=== PATIENT | female | born 1985 | race Caucasian/White ===

== ENCOUNTER 2017-09-28 12:14 | Emergency (ER) | payer SELFPAY ==
[2017-09-28 12:15] VITALS: BP 107/44; PULSE 110; RESP 16; TEMP 36.5; O2SAT 94; BMI 21.6
[2017-09-28] MEDS: Ondansetron 4 MG/2 ML Vial IV (12:55)
[2017-09-28 13:03] LABS: Absolute Lymphocyte Count 3.08 X10^3/ul (0.83-4.51); Absolute Neutrophil Count 8.6 X10^3/uL (2.0-7.7); Basophil# 0.02 X10^3/uL; Basophil% 0.2 % (0-1); Eosinophil# 0.02 X10^3/uL; Eosinophils% 0.2 % (0-5); Hematocrit 47.6 % (37-47); Lymphocyte # 3.08 X10^3/ul (4.0); Lymphocyte % 23.4 % (19-41); Mean Corp Hgb Conc 35.7 g/gl (32-36); Mean Corpuscular Hgb 33.5 pg (27.0-32.0); Mean Corpuscular Volume 93.7 fL (81-99); Mean Platelet Vol. 8.7 fl (6.2-12.0); Monocyte# 1.48 X10^3/uL; Monocyte% 11.2 % (0-10); Neutrophil # 8.56 X10^3/uL (2.7-7.7); Neutrophil % 64.8 % (47-70); POSITIVE COUNT NO; POSITIVE DIFFERENTIAL NO; POSITIVE MORPHOLOGY NO; Platelet Count 355 K/mm3 (150-450); RBC Distribution Width SD 43.9 fl (35.1-43.9); Red Blood Count 5.08 M/mm3 (4.2-5.4); White Blood Count 13.2 K/mm3 (4.4-11.0)
[2017-09-28 13:05] LABS: Red Blood Cells-Urine 0 SEEN /hpf (0-5)
[2017-09-28 13:10] LABS: Color, Urine Amber (Yellow); Glucose, Dipstick Normal (Normal); Ketone-Dipstick 15 mg/dl (Negative); Leukocyte Esterase-Dipstick 25 /ul (Negative); Nitrite-Dipstick Negative (Negative); Occult Blood-Urine 50 /ul (Negative); Protein-Dipstick 100 mg/dl (Negative); Urine Clarity Sl. Cloudy (Clear); Urine Urobilinogen 1 mg/dl (Normal)
[2017-09-28 13:13] LABS: BUN 15 mg/dL (7-18); Creatinine, Serum 0.91 mg/dL (0.55-1.02); EST Glomerular Filtration Rate 75 mL/min (>60); Estimated Creatinine Clearance 87.87 ml/min; Glucose 122 mg/dL (74-106)
[2017-09-28 13:13] LABS: Urine Bilirubin Dipstick 1 mg/dL (Negative)
[2017-09-28 13:14] LABS: Anion Gap 11 (5-15); BUN/Creat Ratio 16.5 RATIO (10-20); Calcium,Total 9.4 mg/dL (8.5-10.1); Chloride 100 mmol/L (98-107); Est Glom Filt Rate - Afr Amer 91 mL/min (>60); Potassium 3.8 mmol/L (3.5-5.1); Sodium Level 137 mmol/L (136-145)
[2017-09-28 13:15] LABS: Bacteria 1+ /hpf (None Seen); Mucous, Urine 2+ /hpf (<or=2+); Squamous Epithelial Cells - UA 5-10 SEEN /hpf (5-10)
[2017-09-28 13:16] LABS: White Blood Cells 0-5 SEEN /hpf (0-5)
[2017-09-28 13:20] LABS: Pregnancy, Serum, hCG Quali. NEGATIVE Negative (0-9 Nonpreg)
--- NOTE | 2017-09-28 13:46 | ED.DCSUM_ITS ---
- ER Visit Summary Date of Service: 09/28/17 Chief Complaint: Vomiting and diarrhea History of Present Illness: The patient is a 32 F presenting with vomiting and diarrhea. This has been ongoing for the past 2 days. She states she is taking Zofran at home with some improvement. She initially had vomiting and diarrhea. She states the diarrhea has slowed down but she continues to have vomiting. She states her fianc? was ill with similar complaints. Denies fever or other complaints. Physical Examination: Vitals are stable. Patient is afebrile. Alert no acute distress. HEENT exam is unremarkable. Neck is supple. Lungs are clear and equal bilaterally. Heart is regular rate and rhythm. Abdomen is soft epigastric tenderness, no rebound or guarding. Extremities are unremarkable. Skin is warm and dry. No focal neurologic deficit. Remainder of exam is unremarkable. Emergency Department Course and Treatment: Patient was given IV fluids, Zofran. CBC shows a white count of 13.2. Chemistries unremarkable. Liver lipase are normal. Urinalysis unremarkable. HCG negative. She continues to have nausea and was given Phenergan. She continues to have epigastric pain was given a GI cocktail. She states she feels much improved on reevaluation. She will follow- up with her primary care physician. She is advised to return to ED for worsening complaints. Disposition: Discharge home Impression: Vomiting and diarrhea This note was generated with [employer] dictation software. It may contain incorrect words, spelling, and punctuation that were not noted in review of the chart prior to signing ED Disposition - Plan for ED Patient: Chief Complaint: Nausea/Vomiting Referrals: Bernard Balbuena MD [Primary Care Provider] -
[2017-09-28 14:19] LABS: AST(SGOT) 24 U/L (15-37); Alanine Aminotransfer ALT/SGPT 24 U/L (13-56); Albumin, Serum 4.2 g/dL (3.2-5.0); Alkaline Phosphatase 82 U/L (45-117); Bilirubin, Direct < 0.05 mg/dL (0.00-0.30); Protein, Total 8.2 g/dL (6.4-8.2)
[2017-09-28 14:26] LABS: Lipase 65 U/L (73-393)
[2017-09-28] MEDS: 0.9% Normal Saline 1,000 ML 999 ML IV (14:35)
[2017-09-28 15:16] VITALS: BP 138/83; PULSE 97; RESP 20; O2SAT 97
--- NOTE | 2017-09-28 16:56 | ED.DEP ---
ED Disposition - Plan for ED Patient: Chief Complaint: Nausea/Vomiting Instructions: ED Nausea Vomiting Prescriptions: ProMETHAzine [Phenergan] 25 mg PO Q6H PRN PRN #10 tablet PRN Reason: Nausea Referrals: Bernard Balbuena MD [Primary Care Provider] -
[2017-09-28 17:09] VITALS: BP 101/69; PULSE 64; RESP 15; O2SAT 97
--- NOTE | 2017-09-28 17:10 | ED.RN ---
THIS RN REVIEWED DISCHARGE INSTRUCTIONS AND HOME GOING PRESCRIPTIONS WITH THE PT. PT VERBALIZES UNDERSTANDING. IV D/C AND COVERED WITH 2X2 GAUZE DRESSING. PT APPLIED PRESSURE. MINIMAL BLEEDING NOTED. PT DRESSES SELF AND IS AMBULATORY HOME.
== END 2017-09-28 17:12 | disposition home or self-care (01) ==
PROVIDERS: Emergency Provider Emergency Medicine; Family Provider Family Medicine; PCP Family Medicine
DX: R19.7 Diarrhea, unspecified (principal); R11.2 Nausea with vomiting, unspecified; R10.13 Epigastric pain; J44.9 Chronic obstructive pulmonary disease, unspecified; Z72.0 Tobacco use; Z79.51 Long term (current) use of inhaled steroids; Z79.899 Other long term (current) drug therapy
CPT/HCPCS: 80048; 80076; 81001; 83690; 84703; 85025; 99283; J7030; A4216; J2405

== ENCOUNTER 2017-12-25 16:58 | Emergency (ER) | payer SELFPAY ==
[2017-12-25 16:59] VITALS: BP 125/81; PULSE 68; RESP 17; TEMP 36.7; O2SAT 96; BMI 24.0
[2017-12-25] MEDS: Ketorolac 30 MG/ML Syringe IV (18:04)
[2017-12-25] MEDS: Ondansetron 4 MG/2 ML Vial IV ×2 (18:04→21:32)
[2017-12-25] MEDS: 0.9% Normal Saline 1,000 ML 1000 ML IV ×2 (18:04→19:40)
[2017-12-25 18:09] LABS: Anion Gap 10 (5-15); BUN 6 mg/dL (7-18); BUN/Creat Ratio 6.9 RATIO (10-20); Calcium,Total 9.4 mg/dL (8.5-10.1); Chloride 106 mmol/L (98-107); Creatinine, Serum 0.87 mg/dL (0.55-1.02); EST Glomerular Filtration Rate 79 mL/min (>60); Est Glom Filt Rate - Afr Amer 95 mL/min (>60); Estimated Creatinine Clearance 91.91 ml/min; Glucose 133 mg/dL (74-106); Potassium 3.3 mmol/L (3.5-5.1); Sodium Level 140 mmol/L (136-145)
[2017-12-25 18:15] LABS: Pregnancy, Serum, hCG Quali. NEGATIVE Negative (0-9 Nonpreg)
--- NOTE | 2017-12-25 18:42 | ED.DCSUM_ITS ---
- ER Visit Summary Date of Service: 12/25/17 Chief Complaint: Vomiting and diarrhea History of Present Illness: The patient is a [address] Balbuena. She reports she has vomiting and diarrhea that began today. She is vomited multiple times. No blood or emesis. She has had 7 8 episodes of diarrhea. No blood in her stools. She reports that she has sharp diffuse abdominal pain is 710 severity. Is worsened by vomiting and relieved by a hot bath. She denies any dysuria frequency. She is on her menstrual period now. Patient denies sick contacts. Has not been camping out of the country. No possible bad food exposure. Does not drink well water. No recent antibiotic use. Physical Examination: Vitals: Stable. Afebrile. General: Well-nourished and well-developed. Head: Normocephalic atraumatic. Neck: Supple, no lymphadenopathy. No JVD. Nontender. Cardiovascular: Regular rate and rhythm. No murmurs. Respiratory: No respiratory distress. Clear to auscultation bilaterally. Abdominal: Soft, mild diffuse tenderness to palpation, nondistended, normal bowel sounds. No guarding, rebound, or peritoneal signs. Back: Nontender. Extremities: Nontender, no edema. Skin: Normal color, no rash. Neurologic: Alert and oriented ?3. Cranial nerves II through XII are intact. Normal strength and sensation. Psych: Normal affect. Test Results: Chem-7 is remarkable for potassium of 3.3, glucose 133, BUN of 6. test is negative. Emergency Department Course and Treatment: Patient was given 2 L normal saline. She is given Toradol, Zofran, and Phenergan IV. At her request she was given a GI cocktail p.o. She is resting comfortably. Treatment Plan: Patient be discharged instructions to use her Zofran and Phenergan that she already has at home. Follow-up Dr. Balbuena in 1-2 days not improving. Disposition: To home in improved and stable condition. Impression: 1. Vomiting/diarrhea. This note was generated with [employer] software. It may contain incorrect words, spelling, and punctuation that were not noted in review of the chart prior to signing ED Disposition - Plan for ED Patient: Chief Complaint: Nausea/Vomiting/Diarrhea Instructions: ED Food Poison Or Gastroenteritis Referrals: Bernard Balbuena MD [Primary Care Provider] - 1-2 Days if not improving
[2017-12-25 19:37] VITALS: PULSE 72; RESP 16; O2SAT 98
[2017-12-25] MEDS: proMETHazine 25 MG/ML Syringe 6.25 MG IV (19:40)
[2017-12-25 21:05] VITALS: BP 118/78; PULSE 74; RESP 18; O2SAT 97
[2017-12-25 21:34] VITALS: BP 122/78; PULSE 82; RESP 18; O2SAT 98
== END 2017-12-25 21:36 | disposition home or self-care (01) ==
PROVIDERS: Emergency Provider Emergency Medicine; Family Provider Family Medicine; PCP Family Medicine
DX: R19.7 Diarrhea, unspecified (principal); R11.10 Vomiting, unspecified; F17.200 Nicotine dependence, unspecified, uncomplicated; Z90.710 Acquired absence of both cervix and uterus
CPT/HCPCS: 80048; 84703; 96361; 96374; 96375; 96376; 99283; J7030; A4216; J2405

== ENCOUNTER 2018-03-24 15:36 | Emergency (ER) | payer SELFPAY ==
[2018-03-24 15:37] VITALS: BP 127/79; PULSE 95; RESP 14; TEMP 36.8; O2SAT 98; BMI 23.1
--- NOTE | 2018-03-24 16:01 | ED.VISSUMM ---
- ER Visit Summary Date of Service: 03/24/18 Chief Complaint: Nausea and vomiting History of Present Illness: The patient is a 32 F with nausea and vomiting since yesterday morning. Patient states she did have diarrhea briefly yesterday morning but none since. She has had subjective fever and chills. She only urinated one time hours. Patient does have a history of cyclic vomiting with similar. She has had prior cholecystectomy and left fallopian tube removed. Physical Examination: Vital signs unremarkable. Patient sitting upright in bed. Head and neck examination is significant for dry mucous membranes. Heart is regular rate and rhythm. Lung sounds are clear. Abdomen is soft with focal tenderness in epigastric area. No guarding or rebound. Hypoactive bowel sounds are noted throughout. Test Results: CBC was a white count 20.8 with 77% neutrophils. Hemoglobin is concentrated at 16.9. In review of prior records patient has had elevated white counts when she presents with similar symptoms. Chemistry studies are significant for sodium 128, potassium 3.0, chloride 85. LFTs lipase normal. test negative. Emergency Department Course and Treatment: Patient was initially given Zofran, IV fluids, and a GI cocktail. After 2 L of IV fluids and 40 mg of potassium orally repeat chemistry studies were obtained. Repeat sodium is 134, potassium 3.3, chloride 97. At this time patient is tolerating p.o. Should be given Zofran, Pepcid, and potassium replacement for home. If she worsens she is to return. Treatment Plan: [] Disposition: Discharge Impression: Vomiting, improved This note was generated with [employer] dictation software. It may contain incorrect words, spelling, and punctuation that were not noted in review of the chart prior to signing ED Disposition - Plan for ED Patient: Chief Complaint: Nausea/Vomiting Referrals: Bernard Balbuena MD [Primary Care Provider] -
[2018-03-24] MEDS: Mag Hydrox/Al Hydrox/Simeth 30 ML UDC PO (16:18)
[2018-03-24] MEDS: 0.9% Normal Saline 1,000 ML 150 ML IV (16:18)
[2018-03-24] MEDS: 0.9% Normal Saline 1,000 ML 1000 ML IV (16:18)
[2018-03-24] MEDS: Ondansetron 4 MG/2 ML Vial IV ×2 (16:18→20:03)
[2018-03-24 16:30] LABS: Absolute Lymphocyte Count 2.86 X10^3/ul (0.83-4.51); Absolute Neutrophil Count 16.1 X10^3/uL (2.0-7.7); Basophil# 0.01 X10^3/uL; Hematocrit 47.5 % (37-47); Hemoglobin 16.9 g/dl (12.0-15.0); Lymphocyte # 2.86 X10^3/ul (4.0); Lymphocyte % 13.7 % (19-41); Mean Corp Hgb Conc 35.6 g/gl (32-36); Mean Corpuscular Hgb 33.3 pg (27.0-32.0); Mean Corpuscular Volume 93.7 fL (81-99); Mean Platelet Vol. 9.1 fl (6.2-12.0); Monocyte# 1.77 X10^3/uL; Monocyte% 8.5 % (0-10); Neutrophil # 16.13 X10^3/uL (2.7-7.7); Neutrophil % 77.6 % (47-70); Platelet Count 308 K/mm3 (150-450); RBC Distribution Width CV 13.3 % (11.6-14.6); RBC Distribution Width SD 45.1 fl (35.1-43.9); Red Blood Count 5.07 M/mm3 (4.2-5.4); White Blood Count 20.8 K/mm3 (4.4-11.0)
[2018-03-24 16:50] LABS: AST(SGOT) 26 U/L (15-37); Alanine Aminotransfer ALT/SGPT 23 U/L (13-56); Albumin, Serum 4.1 g/dL (3.2-5.0); Alkaline Phosphatase 83 U/L (45-117); Anion Gap 11 (5-15); BUN 11 mg/dL (7-18); BUN/Creat Ratio 12.2 RATIO (10-20); Bilirubin, Direct 0.14 mg/dL (0.00-0.30); Calcium,Total 9.3 mg/dL (8.5-10.1); Chloride 85 mmol/L (98-107); EST Glomerular Filtration Rate 76 mL/min (>60); Est Glom Filt Rate - Afr Amer 91 mL/min (>60); Estimated Creatinine Clearance 88.85 ml/min; Globulin 4.1 g/dL (2.2-4.2); Glucose 115 mg/dL (74-106); Lipase 44 U/L (73-393); Protein, Total 8.2 g/dL (6.4-8.2); Sodium Level 128 mmol/L (136-145)
[2018-03-24 16:57] LABS: Differential Indicated SCAN CRITERIA MET; POSITIVE COUNT NO; POSITIVE DIFFERENTIAL YES; POSITIVE MORPHOLOGY NO
[2018-03-24 16:59] LABS: Anisocytosis RARE; Macrocytosis RARE; Platelet Estimate ADEQUATE (ADEQ)
[2018-03-24 17:06] LABS: Pregnancy, Serum, hCG Quali. NEGATIVE Negative (0-9 Nonpreg)
[2018-03-24] MEDS: 0.9% Normal Saline 1,000 ML 999 ML IV (17:21)
[2018-03-24 17:37] VITALS: BP 148/85; PULSE 80; RESP 16; O2SAT 95
[2018-03-24 19:45] VITALS: BP 124/78; PULSE 75; RESP 16; O2SAT 95
[2018-03-24 20:57] LABS: Anion Gap 7 (5-15); BUN 10 mg/dL (7-18); BUN/Creat Ratio 14.3 RATIO (10-20); Chloride 97 mmol/L (98-107); EST Glomerular Filtration Rate 101 mL/min (>60); Est Glom Filt Rate - Afr Amer 123 mL/min (>60); Estimated Creatinine Clearance 114.23 ml/min; Glucose 104 mg/dL (74-106); Potassium 3.3 mmol/L (3.5-5.1); Sodium Level 134 mmol/L (136-145)
--- NOTE | 2018-03-24 21:17 | ED.DEP ---
ED Disposition - Plan for ED Patient: Disposition: Home or Assisted Living Chief Complaint: Nausea/Vomiting Instructions: ED Nausea Vomiting Prescriptions: Ondansetron [Zofran Odt] 4 mg PO Q8H PRN PRN #10 tablet PRN Reason: Nausea Famotidine [Pepcid] 20 mg PO BID #28 tablet Potassium Chloride [K-Dur] 20 meq PO BID #6 tablet Referrals: Bernard Balbuena MD [Primary Care Provider] - 5-7 Days
[2018-03-24] MEDS: Ondansetron ODT 4 MG Tablet PO (21:30)
[2018-03-24 21:34] VITALS: BP 126/81; PULSE 62; RESP 16; O2SAT 94
[2018-03-25 15:06] LABS: Pathologist Review Reviewed
== END 2018-03-24 21:35 | disposition home or self-care (01) ==
PROVIDERS: Emergency Provider Emergency Medicine; Family Provider Family Medicine; PCP Family Medicine
DX: R11.2 Nausea with vomiting, unspecified (principal); Z90.49 Acquired absence of other specified parts of digestive tract; R19.7 Diarrhea, unspecified; R10.9 Unspecified abdominal pain; J45.909 Unspecified asthma, uncomplicated; Z72.0 Tobacco use
CPT/HCPCS: 36415; 80048; 80076; 83690; 84703; 85025; 99282; J7030; A4216; J2405

== ENCOUNTER 2018-04-29 16:40 | Emergency (ER) | payer SELFPAY ==
[2018-04-29 16:41] VITALS: BP 117/73; PULSE 106; RESP 18; TEMP 36.6; O2SAT 98; BMI 23.1
--- NOTE | 2018-04-29 17:00 | ED.VISSUMM ---
- ER Visit Summary Date of Service: 04/29/18 Chief Complaint: Vomiting ?100 History of Present Illness: The patient is a 33 F who has history of cyclic vomiting presents with vomiting 100 times since yesterday morning. 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 She does admit to occasional alcohol use, and cannabis. She admits to smoking daily. She states she took the Zofran ODT tablet she was prescribed with no effect. She denies fever, chills night sweats. She denies ocular, visual or auditory symptoms. She does complain of dry mouth and thirst. She denies trouble with speech or swallowing. She denies chest pain, palpitations or rapid heartbeat. She denies shortness of breath, dyspnea on exertion, orthopnea. She denies hematemesis, melena hematochezia. She reports decreased urine output otherwise negative. She denies skin lesions or rash. She denies paresthesia, anesthesia or motor weakness. She denies problems with walking or balance. She denies headache. Physical Examination: Vital signs noted and remarkable for heart rate of 106. HEENT exam is marked for dry mucosa and tongue. Heart is rapid and regular without murmur, gallop or rub. Lungs are clear to auscultation with good move air bilaterally. Abdomen is soft nontender. Bowel sounds are diminished. There is no evidence of trauma. There is no CVA tenderness. Lower extremity exam is unremarkable. Neuro exam is nonfocal. Test Results: None were obtained Emergency Department Course and Treatment: ED cyclic vomiting order set was initiated. Since there is no history of diabetes, hypertension or renal disease blood work was not obtained in this 33-year-old patient. Treatment Plan: Patient did not have any vomiting and was asleep after stage I. When the nurse asked how she felt she states she is no better. She received stage II which is 0.5 mg/kg of Thorazine and Benadryl. She has been hear greater than 6 hours without any vomiting. When asked how she feels she states no better. Since her initial complaint was vomiting 100 times and she has not vomited once in greater than 6 hours she will be discharged home Disposition: Discharged to home Impression: 1. Cyclic vomiting 2. Dehydration This note was generated with [employer] software. It may contain incorrect words, spelling, and punctuation that were not noted in review of the chart prior to signing ED Disposition - Plan for ED Patient: Disposition: Home or Assisted Living Chief Complaint: Nausea/Vomiting Instructions: When Your Child Has Cyclic Vomiting Syndrome ([facility]) Referrals: Benrard Balbuena MD [Primary Care Provider] - As Needed
--- NOTE | 2018-04-29 17:03 | ED.DCSUM_ITS ---
- ER Visit Summary Date of Service: 04/29/18 Chief Complaint: Vomiting ?100 History of Present Illness: The patient is a 33 F who has history of cyclic vomiting presents with vomiting 100 times since yesterday morning. 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 She does admit to occasi onal alcohol use, and cannabis. She admits to smoking daily. She states she took the Zofran ODT tablet she was prescribed with no effect. She denies fever, chills night sweats. She denies ocular, visual or auditory symptoms. She does complain of dry mouth and thirst. She denies trouble with speech or swallowing. She denies chest pain, palpitations or rapid heartbeat. She denies shortness o f breath, dyspnea on exertion, orthopnea. She denies hematemesis, melena hematochezia. She reports decreased urine output otherwise negative. She denies skin lesions or rash. She denies paresthesia, anesthesia or motor weakness. She denies problems with walking or balance. She denies headache. Physical Examination: Vital signs noted and remarkable for heart rate of 106. HEENT exam is marked for dry mucosa and tongue. Heart is rapid and regular without murmur, gallop or rub. Lungs are clear to auscultation with good move air bilaterally. Abdomen is soft nontender. Bowel sounds are diminished. There is no evidence of trauma. There is no CVA tenderness. Lower extremity exam is unremarkable. Neuro exam is nonfocal. Test Results: None were obtained Emergency Department Course and Treatment: ED cyclic vomiting order set was initiated. Since there is no history of diabetes, hypertension or renal disease blood work was not obtained in this 33-year-old patient. Treatment Plan: Patient did not have any vomiting and was asleep after stage I. When the nurse asked how she felt she states she is no better. She received stage II which is 0.5 mg/kg of Thorazine and Benadryl. She has been hear greater than 6 hours without any vomiting. When asked how she feels she states no better. Since her initial complaint was vomiting 100 times and she has not vomited once in greater than 6 hours she will be discharged home Disposition: Discharged to home Impression: 1. Cyclic vomiting 2. Dehydration This note was generated with [employer] dictation software. It may contain incorrect words, spelling, and punctuation that were not noted in review of the chart prior to signing ED Disposition - Plan for ED Patient: Disposition: Home or Assisted Living Chief Complaint: Nausea/Vomiting Instructions: When Your Child Has Cyclic Vomiting Syndrome (CVS) Referrals: Bernard Balbuena MD [Primary Care Provider] - As Needed
[2018-04-29] MEDS: Ondansetron 4 MG/2 ML Vial IV (17:26)
[2018-04-29] MEDS: LORazepam 2 MG/ML Syringe 0.5 MG IV (17:27)
[2018-04-29] MEDS: 0.9% Normal Saline 1,000 ML 1000 ML IV (17:27)
[2018-04-29 21:10] VITALS: BP 105/75; PULSE 77; RESP 16; O2SAT 94
[2018-04-29 23:15] VITALS: BP 109/68; PULSE 75; RESP 14; O2SAT 98
== END 2018-04-29 23:15 | disposition home or self-care (01) ==
PROVIDERS: Emergency Provider Emergency Medicine; Family Provider Family Medicine; PCP Family Medicine
DX: G43.A0 Cyclical vomiting, in migraine, not intractable (principal); E86.0 Dehydration; F17.200 Nicotine dependence, unspecified, uncomplicated
CPT/HCPCS: 96365; 96366; 96375; 99284; J7030; A4216; J2405; J3490

== ENCOUNTER 2018-07-02 15:50 | Emergency (ER) | payer SELFPAY ==
[2018-07-02 15:51] VITALS: BP 129/80; PULSE 74; RESP 16; TEMP 37.1; O2SAT 95; BMI 22.8
[2018-07-02] MEDS: LORazepam 2 MG/ML Syringe 0.5 MG IV (16:35)
[2018-07-02] MEDS: Mag Hydrox/Al Hydrox/Simeth 30 ML UDC PO (16:35)
[2018-07-02] MEDS: 0.9% Normal Saline 1,000 ML 1000 ML IV (16:35)
[2018-07-02] MEDS: Ketorolac 30 MG/ML Syringe IV (16:35)
[2018-07-02] MEDS: Ondansetron 4 MG/2 ML Vial IV (16:35)
--- NOTE | 2018-07-02 17:02 | ED.DCSUM_ITS ---
- ER Visit Summary Date of Service: 07/02/18 Chief Complaint: Vomiting History of Present Illness: The patient is a [address] Balbuena. She reports that she has a history of cyclic vomiting. States that she did not vomit again yesterday. She vomited multiple times. No blood or emesis. She reports she has sharp lower abdominal pain that began after the vomiting began. States pain is 10 at 10 at worst 7-10 currently. Is worsened by vomiting. Is relieved by remaining still. She reports that 2 episodes of diarrhea yesterday. She has not had any today. No blood in her stools or black tarry stools. No dysuria frequency. Last menstrual period was last week. No vaginal bleeding or discharge. Physical Examination: Vitals: Stable. Afebrile. General: Well-nourished and well-developed. Head: Normocephalic atraumatic. Neck: Supple, no lymphadenopathy. No JVD. Nontender. Cardiovascular: Regular rate and rhythm. No murmurs. Respiratory: No respiratory distress. Clear to auscultation bilaterally. Abdominal: Soft, mild suprapubic tenderness to palpation, nondistended, normal bowel sounds. No guarding, rebound, or peritoneal signs. Back: Nontender. Extremities: Nontender, no edema. Skin: Normal color, no rash. Neurologic: Alert and oriented ?3. Cranial nerves II through XII are intact. Normal strength and sensation. Psych: Normal affect. Test Results: test is negative Emergency Department Course and Treatment: Patient had an IV placed. She is given a liter normal saline. She was treated with Zofran, Ativan, Thorazine, and Toradol IV. She has not vomited while here. She is resting comfortably. Treatment Plan: Patient will be discharged instructions to follow-up her primary care physician 1-2 days not improving. She has Zofran ODT and Phenergan suppositories at home already. Return to the emergency department for any worsening symptoms. Disposition: To home in improved and stable condition. Impression: 1. Cyclic vomiting. This note was generated with [employer] software. It may contain incorrect words, spelling, and punctuation that were not noted in review of the chart prior to signing ED Disposition - Plan for ED Patient: Chief Complaint: Nausea/Vomiting Instructions: When Your Child Has Cyclic Vomiting Syndrome (CVS) Referrals: Bernard Balbuena MD [Primary Care Provider] - 1-2 Days if not improving
[2018-07-02 17:41] LABS: Pregnancy, Serum, hCG Quali. NEGATIVE Negative (0-9 Nonpreg)
[2018-07-02 18:20] VITALS: BP 94/41; PULSE 67; RESP 14; O2SAT 94
--- OUTSIDE RECORDS SUMMARY | 2018-08-28 02:40 | XMS RPT_ITS ---
:1985 Author Organization OH[facility] Care Team Providers Name Role Phone Bernard Balbuena Primary Care Unavailable Oapl Nelson Attending Unavailable Christy Jarrell Attending Unavailable Bernard Balbuena Referring Unavailable Bernard Balbuena Primary Care Unavailable Sandoval Gomez Attending Unavailable Bernard Balbuena Primary Care Unavailable Shima Matamoros Attending Unavailable Bernard Balbuena Primary Care Unavailable Silva, Franklin Attending Unavailable Bernard Balbuena Primary Care Unavailable Sandoval Gomez Attending Unavailable PROBLEMS PROBLEMS No Problem Records FoundPROCEDURES PROCEDURES No Procedure Records FoundRESULTS RESULTS EMERGENCY DEPARTMENT Observed: 07/02/2018 Status: F Source: [place] SUMMARY 11:12 PM [facility] Medical Records Department [address] [place] [address] Emergency Department Summary 07/02/18 1700 MR#: [id number] Acct: [id number] Name: NELIDA GLASS Rep #: [id number] : 1985 33 From: Sandoval Gomez MD PCP: Bernard Balbuena MD Status: DEP ER - ER Visit Summary Date of Service: 07/02/18 Chief Complaint: Vomiting History of Present Illness: The patient is a [address] Balbuena. She reports that she has a history of cyclic vomiting. States that she did not vomit again yesterday. She vomited multiple times. No blood or emesis. She reports she has sharp lower abdominal pain that began after the vomiting began. States pain is 10 at 10 at worst 7-10 currently. Is worsened by vomiting. Is relieved by remaining still. She reports that 2 episodes of diarrhea yesterday. She has not had any today. No blood in her stools or black tarry stools. No dysuria frequency. Last menstrual period was last week. No vaginal bleeding or discharge. Physical Examination: Vitals: Stable. Afebrile. General: Well-nourished and well-developed. Head: Normocephalic atraumatic. Neck: Supple, no lymphadenopathy. No JVD. Nontender. Cardiovascular: Regular rate and rhythm. No murmurs. Respiratory: No respiratory distress. Clear to auscultation bilaterally. Abdominal: Soft, mild suprapubic tenderness to palpation, nondistended, normal bowel sounds. No guarding, rebound, or peritoneal signs. Back: Nontender. Extremities: Nontender, no edema. Skin: Normal color, no rash. Neurologic: Alert and oriented 3. Cranial nerves II through XII are intact. Normal strength and sensation. Psych: Normal affect. Test Results: test is negative Emergency Department Course and Treatment: Patient had an IV placed. She is given a liter normal saline. She was treated with Zofran, Ativan, Thorazine, and Toradol IV. She has not vomited while here. She is resting comfortably. Treatment Plan: Patient will be discharged instructions to follow-up her primary care physician 1-2 days not improving. She has Zofran ODT and Phenergan suppositories at home already. Return to the emergency department for any worsening symptoms. Disposition: To home in improved and stable condition. Impression: 1. Cyclic vomiting. This note was generated with [employer] dictation software. It may contain incorrect words, spelling, and punctuation that were not noted in review of the chart prior to signing ED Disposition - Plan for ED Patient: Chief Complaint: Nausea/Vomiting Instructions: When Your Child Has Cyclic Vomiting Syndrome (CVS) Referrals: Bernard Balbuena MD [Primary Care Provider] - 1-2 Days if not improving What to do if you have Problems For any increased pain, shortness of breath, bleeding, nausea or vomiting, chest pain, or any unexpected problems, contact your Primary Care Provider. Call [facility] ([phone]) or report to the closest Emergency Room. Call 911 if necessary. 07/02/18 8562 <Electronically signed by Sandoval Gomez MD> Date Sandoval Gomez MD Cosigner Signature (If Indicated): Date CC: Bernard Balbuena MD ,SERUM,HCG QUALI. Collected: Status: F Source: [place] 07/02/2018 4:20 PM [facility] TYPE CODE TESTS RESULT OUT OF REFERENCE UNITS RANGE LAB L700.7000 0-9 Nonpreg Negative Normal HCGSQUAL NEGATIVE LAB L700.6700 =>Qualitative mIU/mL Normal HCG Qual < 1 triggr Performed By: #### L700.6800 #### [facility] [address] [place], [address] EMERGENCY DEPARTMENT Observed: 04/29/2018 Status: F Source: [place] SUMMARY 10:57 PM [facility] Medical Records Department [address] [place] [address] Emergency Department Summary 04/29/18 1700 MR#: [id number] Acct: [id number] Name: NELIDA GLASS Rep #: [id number] : 1985 33 From: Franklin Silva MD PCP: Bernard Balbuena MD Status: REG ER - ER Visit Summary Date of Service: 04/29/18 Chief Complaint: Vomiting 100 History of Present Illness: The patient is a 33 F who has history of cyclic vomiting presents with vomiting 100 times since yesterday morning. 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 She does admit to occasional alcohol use, and cannabis. She admits to smoking daily. She states she took the Zofran ODT tablet she was prescribed with no effect. She denies fever, chills night sweats. She denies ocular, visual or auditory symptoms. She does complain of dry mouth and thirst. She denies trouble with speech or swallowing. She denies chest pain, palpitations or rapid heartbeat. She denies shortness of breath, dyspnea on exertion, orthopnea. She denies hematemesis, melena hematochezia. She reports decreased urine output otherwise negative. She denies skin lesions or rash. She denies paresthesia, anesthesia or motor weakness. She denies problems with walking or balance. She denies headache. Physical Examination: Vital signs noted and remarkable for heart rate of 106. HEENT exam is marked for dry mucosa and tongue. Heart is rapid and regular without murmur, gallop or rub. Lungs are clear to auscultation with good move air bilaterally. Abdomen is soft nontender. Bowel sounds are diminished. There is no evidence of trauma. There is no CVA tenderness. Lower extremity exam is unremarkable. Neuro exam is nonfocal. Test Results: None were obtained Emergency Department Course and Treatment: ED cyclic vomiting order set was initiated. Since there is no history of diabetes, hypertension or renal disease blood work was not obtained in this 33-year-old patient. Treatment Plan: Patient did not have any vomiting and was asleep after stage I. When the nurse asked how she felt she states she is no better. She received stage II which is 0.5 mg/kg of Thorazine and Benadryl. She has been hear greater than 6 hours without any vomiting. When asked how she feels she states no better. Since her initial complaint was vomiting 100 times and she has not vomited once in greater than 6 hours she will be discharged home Disposition: Discharged to home Impression: 1. Cyclic vomiting 2. Dehydration This note was generated with [employer] software. It may contain incorrect words, spelling, and punctuation that were not noted in review of the chart prior to signing ED Disposition - Plan for ED Patient: Disposition: Home or Assisted Living Chief Complaint: Nausea/Vomiting Instructions: When Your Child Has Cyclic Vomiting Syndrome (CVS) Referrals: Bernard Balubena MD [Primary Care Provider] - As Needed What to do if you have Problems For any increased pain, shortness of breath, bleeding, nausea or vomiting, chest pain, or any unexpected problems, contact your Primary Care Provider. Call [facility] ([phone]) or report to the closest Emergency Room. Call 911 if necessary. 04/29/18 0809 <Electronically signed by Franklin Silva MD> Date Franklin Silva MD Cosigner Signature (If Indicated): Date CC: Bernard Balbuena MD EMERGENCY DEPARTMENT Observed: 03/25/2018 Status: F Source: [place] SUMMARY 12:27 AM [facility] Medical Records Department [address] [place] [address] Emergency Department Summary 03/24/18 1601 MR#: [id number] Acct: [id number] Name: PARRISHNELIDA A Rep #: [id number] : 1985 32 From: Shima Matamoros MD PCP: Bernard Balbuena MD Status: DEP ER - ER Visit Summary Date of Service: 03/24/18 Chief Complaint: Nausea and vomiting History of Present Illness: The patient is a 32 F with nausea and vomiting since yesterday morning. Patient states she did have diarrhea briefly yesterday morning but none since. She has had subjective fever and chills. She only urinated one time hours. Patient does have a history of cyclic vomiting with similar. She has had prior cholecystectomy and left fallopian tube removed. Physical Examination: Vital signs unremarkable. Patient sitting upright in bed. Head and neck examination is significant for dry mucous membranes. Heart is regular rate and rhythm. Lung sounds are clear. Abdomen is soft with focal tenderness in epigastric area. No guarding or rebound. Hypoactive bowel sounds are noted throughout. Test Results: CBC was a white count 20.8 with 77% neutrophils. Hemoglobin is concentrated at 16.9. In review of prior records patient has had elevated white counts when she presents with similar symptoms. Chemistry studies are significant for sodium 128, potassium 3.0, chloride 85. LFTs lipase normal. test negative. Emergency Department Course and Treatment: Patient was initially given Zofran, IV fluids, and a GI cocktail. After 2 L of IV fluids and 40 mg of potassium orally repeat chemistry studies were obtained. Repeat sodium is 134, potassium 3.3, chloride 97. At this time patient is tolerating p.o. Should be given Zofran, Pepcid, and potassium replacement for home. If she worsens she is to return. Treatment Plan: [] Disposition: Discharge Impression: Vomiting, improved This note was generated with [employer] dictation software. It may contain incorrect words, spelling, and punctuation that were not noted in review of the chart prior to signing ED Disposition - Plan for ED Patient: Chief Complaint: Nausea/Vomiting Referrals: Bernard Balbuena MD [Primary Care Provider] - What to do if you have Problems For any increased pain, shortness of breath, bleeding, nausea or vomiting, chest pain, or any unexpected problems, contact your Primary Care Provider. Call [facility] ([phone]) or report to the closest Emergency Room. Call 911 if necessary. 03/25/18 0027 <Electronically signed by Shima Matamoros MD> Date Shima Matamoros MD Cosigner Signature (If Indicated): Date __ CC: Bernard Balbuena MD DISCHARGE INSTRUCTION Observed: 03/24/2018 Status: F Source: [place] 9:18 PM [facility] Medical Records Department [address] [place] [address] Discharge Instruction 03/24/182116 MR#: [id number] Acct: [id number] Name: NELIDA GLASS Rep #: [id number] : 1985 32 From: Shima Matamoros MD PCP: Bernard Balbuena MD Status: REG ER ED Disposition - Plan for ED Patient: Disposition: Home or Assisted Living Chief Complaint: Nausea/Vomiting Instructions: ED Nausea Vomiting Prescriptions: Ondansetron [Zofran Odt] 4 mg PO Q8H PRN PRN #10 tablet PRN Reason: Nausea Famotidine [Pepcid] 20 mg PO BID #28 tablet Potassium Chloride [K-Dur] 20 meq PO BID #6 tablet Referrals: Bernard Balbuena MD [Primary Care Provider] - 5-7 Days What to do if you have Problems For any increased pain, shortness of breath, bleeding, nausea or vomiting, chest pain, or any unexpected problems, contact your Primary Care Provider. Call [facility] ([phone]) or report to the closest Emergency Room. Call 911 if necessary. 03/24/182117 <Electronically signed by Shima Matamoros MD> Date Shima Matamoros MD Cosigner Signature (If Indicated): Date CC: Bernard Balbuena MD BASIC METABOLIC Collected: 03/24/2018 Status: F Source: [place] PROFILE ([facility]) 8:23 PM [facility] TYPE CODE TESTS RESULT OUT OF RANGE REFERENCE UNITS LAB L501.0100 74-106 mg/dL Normal GLU 104 Result Comment: Fasting Glucose result from 100 to 125 mg/dL suggests IMPAIRED HOMEOSTASIS per A.D.A. criteria. Please note revised GLUCOSE reference range effective 2017. LAB L501.1000 7-18 mg/dL Normal BUN 10 LAB L501.1100 0.55-1.02 mg/dL Normal CREAT,SERUM 0.70 Result Comment: The validity of the calculated GFR AND GFRAA in patients over 70 years has not been determined. Clinical correlation is essential. LAB L501.1110 >60 mL/min Normal EST GFR 101 Result Comment: Non- GFR Calc LAB L501.1115 >60 mL/min Normal EST GFR - AA 123 Result Comment: GFR Calc LAB L501.1255 ml/min Normal Estimated CRCL 114.23 LAB L501.1300 10-20 RATIO BUN/CRE Normal 14.3 LAB L501.2200 8.5-10 mg/dL Low .1 CA 8.0 LAB L501.5300 136-14 mmol/L Low 5 NA 134 LAB L501.5600 3.5-5. mmol/L Low 1 K 3.3 Result Comment: Slight Hemolysis, Result may be falsely increased. LAB L501.5900 98-107 mmol/L Low CL 97 LAB L501.6100 21.0-32.0 mmol/L Normal CO2 30.0 LAB L501.6200 5-15 Normal GAP 7 Performed By: #### L500.2500 #### [facility] [address] [place], [address] BASIC METABOLIC Collected: 03/24/2018 Status: F Source: [place] PROFILE ([facility]) 4:00 PM [facility] TYPE CODE TESTS RESULT OUT OF RANGE REFERENCE UNITS LAB L501.0100 74-106 mg/dL High GLU 115 Result Comment: Fasting Glucose result from 100 to 125 mg/dL suggests IMPAIRED HOMEOSTASIS per A.D.A. criteria. Please note revised GLUCOSE reference range effective 2017. LAB L501.1000 7-18 mg/dL Normal BUN 11 LAB L501.1100 0.55-1.02 mg/dL Normal CREAT,SERUM 0.90 Result Comment: The validity of the calculated GFR AND GFRAA in patients over 70 years has not been determined. Clinical correlation is essential. LAB L501.1110 >60 mL/min Normal EST GFR 76 Result Comment: Non- GFR Calc LAB L501.1115 >60 mL/min Normal EST GFR - AA 91 Result Comment: GFR Calc LAB L501.1255 ml/min Normal Estimated CRCL 88.85 LAB L501.1300 10-20 RATIO Normal BUN/CRE 12.2 LAB L501.2200 8.5-10 mg/dL Normal .1 CA 9.3 LAB L501.5300 136-14 mmol/L Low 5 NA 128 LAB L501.5600 3.5-5. mmol/L Low 1 K 3.0 Result Comment: Moderate Hemolysis, Result may be falsely increased. LAB L501.5900 98-107 mmol/L Low CL 85 LAB L501.6100 21.0-32.0 mmol/L Normal CO2 32.0 LAB L501.6200 5-15 Normal GAP 11 Performed By: #### L500.2500, L500.3400, L501.2450 #### [facility] [address] [place], [place], [address] LIVER PROFILE Collected: 03/24/2018 Status: F Source: [place] 4:00 PM [facility] TYPE CODE TESTS RESULT OUT OF RANGE REFERENCE UNITS LAB L501.1500 6.4-8.2 g/dL Normal T PROT 8.2 LAB L501.1800 3.2-5.0 g/dL Normal ALB 4.1 LAB L501.1950 2.2-4.2 g/dL Normal GLOB 4.1 LAB L501.4100 15-37 U/L Normal AST 26 Result Comment: Moderate Hemolysis, Result may be falsely increased. LAB L501.4305 45-117 U/L Normal ALK P 83 LAB L501.4405 13-56 U/L Normal ALT 23 LAB L501.4600 0.20-1.00 mg/dL High T BILI 1.40 LAB L501.4700 0.00-0.30 mg/dL Normal D BILI 0.14 Performed By: #### L500.2500, L500.3400, L501.2450 #### [facility] [address] [place], [place], [address] LIPASE Collected: 03/24/2018 Status: F Source: [place] 4:00 PM [facility] TYPE CODE TESTS RESULT OUT OF REFERENCE UNITS RANGE LAB L501.2450 73-393 U/L Low LIPASE 44 Performed By: #### L500.2500, L500.3400, L501.2450 #### [facility] [address] [place], [address] CBC W/DIFF, AUTOMATED Collected: 03/24/2018 Status: C Source: [place] 4:00 PM [facility] TYPE CODE TESTS RESULT OUT OF RANGE REFERENCE UNITS LAB L100.1000 4.4-11.0 K/mm3 High WBC 20.8 LAB L100.1200 4.2-5.4 M/mm3 Normal RBC 5.07 LAB L100.1300 12.0-15.0 g/dl High HGB 16.9 LAB L100.1400 37-47 % High HCT 47.5 LAB L100.1500 81-99 fL Normal MCV 93.7 LAB L100.1600 27.0-32.0 pg High MCH 33.3 LAB L100.1700 32-36 g/gl Normal MCHC 35.6 LAB L100.1810 11.6-14.6 % Normal RDW CV 13.3 LAB L100.1820 35.1-43.9 fl High RDW SD 45.1 LAB L100.1900 150-450 K/mm3 Normal PLT 308 LAB L100.2000 6.2-12.0 fl Normal MPV 9.1 LAB L100.2100 47-70 % High NEUT% 77.6 LAB L100.2200 19-41 % Low LY% 13.7 LAB L100.2300 0-10 % Normal MONO% 8.5 LAB L100.2400 0-5 % Normal EO% 0.0 LAB L100.2500 0-1 % Normal BASO% 0.0 LAB L100.2550 0.0-0.9 % Normal IM GRAN % 0.200 Result Comment: IG% - Immature Granulocytes (promyelocytes, myelocytes and metamyelocytes) > 1% indicates that a LEFT SHIFT is Present. LAB L100.2620 2.0-7.7 X10 3/uL High Absolute Neut 16.1 LAB L100.2720 0.83-4.51 X10 3/ul Normal Absolute Lymph 2.86 LAB L100.4500 Normal SMEAR COMMENT SEE COMMENT Result Comment: MONOCYTOSIS NOTED LAB L100.5500 ADEQ PLT EST Normal ADEQUATE LAB L100.7300 ANISO RARE Normal LAB L100.7800 RARE Normal MACROCYTE LAB L100.9900 PATH REV Normal Reviewed Result Comment: Neutrophilic leukocytosis. Polycythemia. Clinical correlation necessary. Herve Hernandez M.D. 03/25/18 AMENDED REPORT 03/25/18 1505 PATH REV previously reported as: December Performed By: #### L100.0100 #### [facility] [address] [place], [address] ,SERUM,HCG QUALI. Collected: Status: F Source: [place] 03/24/2018 4:00 PM [facility] TYPE CODE TESTS RESULT OUT OF REFERENCE UNITS RANGE LAB L700.6700 =>Qualitative mIU/mL Normal HCG Qual < 1 triggr LAB L700.7000 0-9 Nonpreg Negative Normal HCGSQUAL NEGATIVE Performed By: #### L700.6800 #### [facility] [address] [place], [address] EMERGENCY DEPARTMENT Observed: 12/26/2017 Status: F Source: [place] SUMMARY 1:24 AM [facility] Medical Records Department [address] [place] [address] Emergency Department Summary 12/25/17 1827 MR#: [id number] Acct: [id number] Name: NELIDA GLASS Rep #: [id number] : 1985 32 From: Sandoval Gomez MD PCP: Bernard Balbuena MD Status: DEP ER - ER Visit Summary Date of Service: 12/25/17 Chief Complaint: Vomiting and diarrhea History of Present Illness: The patient is a [address] Balbuena. She reports she has vomiting and diarrhea that began today. She is vomited multiple times. No blood or emesis. She has had 7 8 episodes of diarrhea. No blood in her stools. She reports that she has sharp diffuse abdominal pain is 710 severity. Is worsened by vomiting and relieved by a hot bath. She denies any dysuria frequency. She is on her menstrual period now. Patient denies sick contacts. Has not been camping out of the country. No possible bad food exposure. Does not drink well water. No recent antibiotic use. Physical Examination: Vitals: Stable. Afebrile. General: Well-nourished and well-developed. Head: Normocephalic atraumatic. Neck: Supple, no lymphadenopathy. No JVD. Nontender. Cardiovascular: Regular rate and rhythm. No murmurs. Respiratory: No respiratory distress. Clear to auscultation bilaterally. Abdominal: Soft, mild diffuse tenderness to palpation, nondistended, normal bowel sounds. No guarding, rebound, or peritoneal signs. Back: Nontender. Extremities: Nontender, no edema. Skin: Normal color, no rash. Neurologic: Alert and oriented 3. Cranial nerves II through XII are intact. Normal strength and sensation. Psych: Normal affect. Test Results: Chem-7 is remarkable for potassium of 3.3, glucose 133, BUN of 6. test is negative. Emergency Department Course and Treatment: Patient was given 2 L normal saline. She is given Toradol, Zofran, and Phenergan IV. At her request she was given a GI cocktail p.o. She is resting comfortably. Treatment Plan: Patient be discharged instructions to use her Zofran and Phenergan that she already has at home. Follow-up Dr. Balbuena in 1-2 days not improving. Disposition: To home in improved and stable condition. Impression: 1. Vomiting/diarrhea. This note was generated with [employer] software. It may contain incorrect words, spelling, and punctuation that were not noted in review of the chart prior to signing ED Disposition - Plan for ED Patient: Chief Complaint: Nausea/Vomiting/Diarrhea Instructions: ED Food Poison Or Gastroenteritis Referrals: Bernard Balbuena MD [Primary Care Provider] - 1-2 Days if not improving What to do if you have Problems For any increased pain, shortness of breath, bleeding, nausea or vomiting, chest pain, or any unexpected problems, contact your Primary Care Provider. Call [facility] ([phone]) or report to the closest Emergency Room. Call 911 if necessary. 12/26/17 0124 <Electronically signed by Sandoval Gomez MD> Date Sandoval Gomez MD Cosigner Signature (If Indicated): Date CC: Bernard Balbuena MD BASIC METABOLIC Collected: 12/25/2017 Status: F Source: [place] PROFILE ([facility]) 5:40 PM [facility] TYPE CODE TESTS RESULT OUT OF RANGE REFERENCE UNITS LAB L501.0100 74-106 mg/dL High GLU 133 Result Comment: Fasting Glucose result greater than or equal to 126 mg/dL suggests DIABETES MELLITUS per A.D.A. criteria. Please note revised GLUCOSE reference range effective 2017. LAB L501.1000 7-18 mg/dL Low BUN 6 LAB L501.1100 0.55-1.02 mg/dL Normal CREAT,SERUM 0.87 Result Comment: The validity of the calculated GFR AND GFRAA in patients over 70 years has not been determined. Clinical correlation is essential. LAB L501.1110 >60 mL/min Normal EST GFR 79 Result Comment: Non- GFR Calc LAB L501.1115 >60 mL/min Normal EST GFR - AA 95 Result Comment: GFR Calc LAB L501.1255 ml/min Normal Estimated CRCL 91.91 LAB L501.1300 10-20 RATIO Low BUN/CRE 6.9 LAB L501.2200 8.5-10 mg/dL Normal .1 CA 9.4 LAB L501.5300 136-14 mmol/L Normal 5 NA 140 LAB L501.5600 3.5-5. mmol/L Low 1 K 3.3 LAB L501.5900 98-107 mmol/L Normal CL 106 LAB L501.6100 21.0-3 mmol/L Normal 2.0 CO2 24.0 LAB L501.6200 5-15 Normal GAP 10 Performed By: #### L500.2500 #### [facility] [address] [place], [address] ,SERUM,HCG QUALI. Collected: Status: F Source: [place] 12/25/2017 5:40 PM [facility] TYPE CODE TESTS RESULT OUT OF REFERENCE UNITS RANGE LAB L700.7000 0-9 Nonpreg Negative Normal HCGSQUAL NEGATIVE LAB L700.6700 =>Qualitative mIU/mL Normal HCG Qual < 1 triggr Performed By: #### L700.6800 #### [facility] [address] [place], [address] DISCHARGE INSTRUCTION Observed: 09/28/2017 Status: F Source: [place] 4:57 PM [facility] Medical Records Department [address] [place] [address] Discharge Instruction 09/28/171655 MR#: [id number] Acct: [id number] Name: NELIDA GLASS Rep #: [id number] : 1985 32 From: Opal Nelson MD PCP: Bernard Balbuena MD Status: REG ER ED Disposition - Plan for ED Patient: Chief Complaint: Nausea/Vomiting Instructions: ED Nausea Vomiting Prescriptions: ProMETHAzine [Phenergan] 25 mg PO Q6H PRN PRN #10 tablet PRN Reason: Nausea Referrals: Bernard Balbuena MD [Primary Care Provider] - What to do if you have Problems For any increased pain, shortness of breath, bleeding, nausea or vomiting, chest pain, or any unexpected problems, contact your Primary Care Provider. Call [facility] ([phone]) or report to the closest Emergency Room. Call 911 if necessary. 09/28/171656 <Electronically signed by Opal Nelson MD> Date Opal Nelson MD Cosigner Signature (If Indicated): Date CC: Bernard Balbuena MD EMERGENCY DEPARTMENT Observed: 09/28/2017 Status: F Source: [place] SUMMARY 4:56 PM [facility] Medical Records Department [address] [place] [address] Emergency Department Summary 09/28/17 1345 MR#: [id number] Acct: [id number] Name: NELIDA GLASS Rep #: [id number] : 1985 32 From: Opal Nelson MD PCP: Bernard Balbuena MD Status: REG ER - ER Visit Summary Date of Service: 09/28/17 Chief Complaint: Vomiting and diarrhea History of Present Illness: The patient is a 32 F presenting with vomiting and diarrhea. This has been ongoing for the past 2 days. She states she is taking Zofran at home with some improvement. She initially had vomiting and diarrhea. She states the diarrhea has slowed down but she continues to have vomiting. She states her fianc was ill with similar complaints. Denies fever or other complaints. Physical Examination: Vitals are stable. Patient is afebrile. Alert no acute distress. HEENT exam is unremarkable. Neck is supple. Lungs are clear and equal bilaterally. Heart is regular rate and rhythm. Abdomen is soft epigastric tenderness, no rebound or guarding. Extremities are unremarkable. Skin is warm and dry. No focal neurologic deficit. Remainder of exam is unremarkable. Emergency Department Course and Treatment: Patient was given IV fluids, Zofran. CBC shows a white count of 13.2. Chemistries unremarkable. Liver lipase are normal. Urinalysis unremarkable. HCG negative. She continues to have nausea and was given Phenergan. She continues to have epigastric pain was given a GI cocktail. She states she feels much improved on reevaluation. She will follow-up with her primary care physician. She is advised to return to ED for worsening complaints. Disposition: Discharge home Impression: Vomiting and diarrhea This note was generated with [employer] dictation software. It may contain incorrect words, spelling, and punctuation that were not noted in review of the chart prior to signing ED Disposition - Plan for ED Patient: Chief Complaint: Nausea/Vomiting Referrals: Bernard Balbuena MD [Primary Care Provider] - What to do if you have Problems For any increased pain, shortness of breath, bleeding, nausea or vomiting, chest pain, or any unexpected problems, contact your Primary Care Provider. Call [facility] ([phone]) or report to the closest Emergency Room. Call 911 if necessary. 09/28/17 1656 <Electronically signed by Opal Nelson MD> Date Opal Nelson MD Cosigner Signature (If Indicated): Date CC: Bernard Balbuena MD URINALYSIS, COMPLETE Collected: 09/28/2017 Status: F Source: [place] 12:56 PM [facility] RE[facility] Order Comment: Order Date: 09/28/17 COLOR OF URINE MAY AFFECT DIPSTICK RESULTS. How was Urine Obtained? CLEAN CATCH TYPE CODE TESTS RESULT OUT OF RANGE REFERENCE UNITS LAB L400.3000 Yellow COLOR Normal [place] LAB L400.3050 Clear Normal CLARITY Sl. Cloudy LAB L400.3200 Normal mg/dl Normal GLUCOSE, UR Normal LAB L400.3300 Negative mg/dL High BILIRUBIN URINE 1 Result Comment: COLOR OF URINE MAY AFFECT DIPSTICK RESULTS. LAB L400.3400 Negative mg/dl High KETONE UR 15 LAB L400.3465 1.002-1.030 Normal SP.GR. DIPSTX 1.030 LAB L400.3550 5.0 - 8.0 pH Normal UR 5.0 LAB L400.3600 Negative mg/dl High PROT DIPSTX 100 LAB L400.3700 Normal mg/dl High UROBILI 1 LAB L400.3750 Negative Normal NITRITE UR Negative LAB L400.3780 Negative /ul High OCCULT 50 BLOOD-UR LAB L400.3800 Negative /ul High LEUK ESTERASE 25 LAB L400.4050 0-5 /hpf Normal WBC 0-5 SEEN LAB L400.4100 0-5 /hpf Normal RBC-UA 0 SEEN LAB L400.4150 5-10 /hpf Normal SQUAM EPI 5-10 SEEN LAB L400.4300 None Seen /hpf Normal BACTERIA 1+ LAB L400.4350 <or=2+ /hpf Normal MUCUS, URINE 2+ Performed By: #### L400.0001 #### [facility] [address] [place], [place], [address] CBC W/DIFF, AUTOMATED Collected: 09/28/2017 Status: F Source: [place] 12:50 PM [facility] REPOS[facility]ORY TYPE CODE TESTS RESULT OUT OF RANGE REFERENCE UNITS LAB L100.1000 4.4-11.0 K/mm3 High WBC 13.2 LAB L100.1200 4.2-5.4 M/mm3 Normal RBC 5.08 LAB L100.1300 12.0-15.0 g/dl High HGB 17.0 LAB L100.1400 37-47 % High HCT 47.6 LAB L100.1500 81-99 fL Normal MCV 93.7 LAB L100.1600 27.0-32.0 pg High MCH 33.5 LAB L100.1700 32-36 g/gl Normal MCHC 35.7 LAB L100.1810 11.6-14.6 % Normal RDW CV 13.0 LAB L100.1820 35.1-43.9 fl Normal RDW SD 43.9 LAB L100.1900 150-450 K/mm3 Normal PLT 355 LAB L100.2000 6.2-12.0 fl Normal MPV 8.7 LAB L100.2100 47-70 % Normal NEUT% 64.8 LAB L100.2200 19-41 % Normal LY% 23.4 LAB L100.2300 0-10 % High MONO% 11.2 LAB L100.2400 0-5 % Normal EO% 0.2 LAB L100.2500 0-1 % Normal BASO% 0.2 LAB L100.2550 0.0-0.9 % Normal IM GRAN % 0.200 Result Comment: IG% - Immature Granulocytes (promyelocytes, myelocytes and metamyelocytes) > 1% indicates that a LEFT SHIFT is Present. LAB L100.2620 2.0-7.7 X10 3/uL High Absolute Neut 8.6 LAB L100.2720 0.83-4.51 X10 3/ul Normal Absolute Lymph 3.08 Performed By: #### L100.0100 #### [facility] [address] [place], [address] BASIC METABOLIC Collected: 09/28/2017 Status: F Source: [place] PROFILE (BMP) 12:50 PM [facility] RE[facility]ITORY TYPE CODE TESTS RESULT OUT OF RANGE REFERENCE UNITS LAB L501.0100 74-106 mg/dL High GLU 122 Result Comment: Fasting Glucose result from 100 to 125 mg/dL suggests IMPAIRED HOMEOSTASIS per A.D.A. criteria. Please note revised GLUCOSE reference range effective 2017. LAB L501.1000 7-18 mg/dL Normal BUN 15 LAB L501.1100 0.55-1.02 mg/dL Normal CREAT,SERUM 0.91 Result Comment: The validity of the calculated GFR AND GFRAA in patients over 70 years has not been determined. Clinical correlation is essential. LAB L501.1110 >60 mL/min Normal EST GFR 75 Result Comment: Non- GFR Calc LAB L501.1115 >60 mL/min Normal EST GFR - AA 91 Result Comment: GFR Calc LAB L501.1255 ml/min Normal Estimated CRCL 87.87 LAB L501.1300 10-20 RATIO Normal BUN/CRE 16.5 LAB L501.2200 8.5-10 mg/dL Normal .1 CA 9.4 LAB L501.5300 136-14 mmol/L Normal 5 NA 137 LAB L501.5600 3.5-5. mmol/L Normal 1 K 3.8 LAB L501.5900 98-107 mmol/L Normal CL 100 LAB L501.6100 21.0-3 mmol/L Normal 2.0 CO2 26.0 LAB L501.6200 5-15 Normal GAP 11 Performed By: #### L500.2500 #### [facility] [address] [place], [address] ,SERUM,HCG QUALI. Collected: Status: F Source: [place] 09/28/2017 12:50 PM [facility]IT[facility] TYPE CODE TESTS RESULT OUT OF REFERENCE UNITS RANGE LAB L700.7000 0-9 Nonpreg Negative Normal HCGSQUAL NEGATIVE LAB L700.6700 =>Qualitative mIU/mL Normal HCG Qual < 1 triggr Performed By: #### L700.6800 #### [facility] [address] [place], [address] LIVER PROFILE Collected: 09/28/2017 Status: F Source: [place] 12:50 PM [facility] REPOSITORY TYPE CODE TESTS RESULT OUT OF RANGE REFERENCE UNITS LAB L501.1500 6.4-8.2 g/dL Normal T PROT 8.2 LAB L501.1800 3.2-5.0 g/dL Normal ALB 4.2 LAB L501.1950 2.2-4.2 g/dL Normal GLOB 4.0 LAB L501.4100 15-37 U/L Normal AST 24 Result Comment: Moderate Hemolysis, Result may be falsely increased. LAB L501.4305 45-117 U/L Normal ALK P 82 LAB L501.4405 13-56 U/L Normal ALT 24 Result Comment: Please note revised ALT reference range effective 2017. LAB L501.4600 0.20-1.00 mg/dL Normal T BILI 0.50 LAB L501.4700 0.00-0.30 mg/dL Normal D < BILI 0.05 Performed By: #### L500.3400 #### [facility] [address] [place], [place], [address] LIPASE Collected: 09/28/2017 Status: F Source: [place] 12:50 PM [facility] TYPE CODE TESTS RESULT OUT OF REFERENCE UNITS RANGE LAB L501.2450 73-393 U/L Low LIPASE 65 Performed By: #### L501.2450 #### [facility] [address] [place], [address] ALLERGIES ALLERGIES DATE TYPE / CODE NAME / CODE REACTION SEVERITY SOURCE 07/02/2018 Miscellaneous FLEA COLLARS Hives Unknown [facility] Allergy/[id number]([facility] [place] Repository ENCOUNTERS ENCOUNTERS ADMIT/DISCHARGE ACCOUNT ADMITTING ENCOUNTER LOCATION SOURCE NUMBER CLASS 07/02/2018/11/28 [id number] Emergency Anais Anais 8 0 [facility] ing:ED Repository 04/29/2018/ [id number] Emergency Beccaria Anais 8 0 [facility] ing:ED Repository 03/24/2018/ [id number] Emergency Beccaria Anais 8 4 [facility] ing:ED Repository 12/25/2017/ [id number] Emergency Anais Anais 8 3 [facility] ing:ED Repository 12/05/2017/ [id number] Ambulatory BMSBuilding:B Anais 8 5 [facility] Repository 09/28/2017/ [id number] Emergency Anais Beccaria 8 2 [facility] ing:ED Repository PAYERS PAYERS ENCOUNTER GUARANTOR PAYER SUBSCRIBER SOURCE 07/02/2018 NELIDA A Primary NOT GIVENUNK Beccaria [id number] Insurance:SELF PAY [place] [address]Tel: Number: Effective Repository Date:2018-07-02 () 04/29/2018 NELIDA A Primary NOT GIVENUNK Beccaria [id number] Insurance:SELF PAY [facility] [place] [address]Kfs: Number: Effective Repository Date:2018-04-29 () 03/24/2018 NELIDA A Primary NOT GIVENUNK Anais [id number] Insurance:SELF PAY [facility] [place] [address]Zfo: Number: Effective Repository Date:2018-03-24 () 12/25/2017 NELIDA A Primary NOT GIVENUNK Anais [id number] Insurance:SELF PAY [facility] [place] [id number]: Number: Effective Repository Date:2017-12-25 () 12/05/2017 NELIDA A Primary NOT GIVENUNK Anais [id number] Insurance:SELF PAY [facility] [place] [address]Dnh: Number: Effective Repository Date:2017-12-05 () 09/28/2017 Nelida Delgado Primary NOT GIVENUNK Anais [id number] Insurance:SELF PAY [facility] [id number]: Number: Effective Repository Date:2017-09-28 ()
== END 2018-07-02 18:21 | disposition home or self-care (01) ==
LOC: ED 16:31
PROVIDERS: Emergency Provider Emergency Medicine; Family Provider Family Medicine; PCP Family Medicine
DX: G43.A0 Cyclical vomiting, in migraine, not intractable (principal); R19.7 Diarrhea, unspecified; R10.9 Unspecified abdominal pain; J02.9 Acute pharyngitis, unspecified; F17.210 Nicotine dependence, cigarettes, uncomplicated
CPT/HCPCS: 84703; 96361; 96374; 96375; 99284; J7030; A4216; J2405; J3490

== ENCOUNTER 2018-07-30 08:18 | Emergency (ER) | payer SELFPAY ==
[2018-07-30 08:19] VITALS: BP 130/83; PULSE 79; RESP 22; TEMP 36.6; O2SAT 95; BMI 24.3
--- NOTE | 2018-07-30 08:32 | ED.VISSUMM ---
- ER Visit Summary Date of Service: 07/30/18 Chief Complaint: [Cough and shortness of breath] History of Present Illness: The patient is a 33 F [presents to the emergency department with an illness that started about 5 days ago. Patient states that initially she had some vomiting and diarrhea for about 24 hours that then resolved. Since that time patient's been coughing and bringing up green and yellow phlegm. Patient's had subjective fever, chills, and sweats. Patient feels short of breath with activity. She does have a history of COPD. Patient continues to smoke. She denies recent travel or surgery. She denies any hemoptysis. She denies sick contacts although she states that her son has cystic fibrosis and just recently returned home from a 3-week hospital stay.] Physical Examination: [HEENT-PERRLA, EOMI. Cranial nerves II through XII grossly intact. TMs clear. Mucous membranes moist. No adenopathy. Cardiovascular-regular rate and rhythm without murmur or ectopy Lungs-diminished bilaterally with expiratory wheezes throughout. Patient has some mild tachypnea. There is no accessory muscle use or retractions. No conversational dyspnea. Abdomen-normoactive bowel sounds, soft, nontender, no rebound or rigidity, no peritoneal signs. Extremities-intact ?4, normal range of motion, normal pulses, atraumatic] Test Results: [None indicated] Emergency Department Course and Treatment: [Patient was given a DuoNeb aerosol and started on prednisone 40 mg. Patient given 1 dose of doxycycline.] Treatment Plan: [Patient will be treated with prednisone and doxycycline. I will write her for the albuterol solution for her nebulizer. Patient to follow-up with primary care physician in 5-7 days. She is advised to return if increasing shortness of breath or condition should worsen anyway.] Disposition: [Discharged home in stable condition.] Impression: [Asthmatic bronchitis] This note was generated with [employer] dictation software. It may contain incorrect words, spelling, and punctuation that were not noted in review of the chart prior to signing ED Disposition - Plan for ED Patient: Chief Complaint: Cough Referrals: Bernard Balbuena MD [Primary Care Provider] -
--- NOTE | 2018-07-30 08:35 | ED.DCSUM_ITS ---
- ER Visit Summary Date of Service: 07/30/18 Chief Complaint: [Cough and shortness of breath] History of Present Illness: The patient is a 33 F [presents to the emergency department with an illness that started about 5 days ago. Patient states that initially she had some vomiting and diarrhea for about 24 hours that then resolved. Since that time patient's been coughing and bringing up green and yellow phlegm. Patient's had subjective fever, chills, and sweats. Patient feels short of breath with activity. She does have a history of COPD. Patient continues to smoke. She denies recent travel or surgery. She denies any hemoptysis. She denies sick contacts although she states that her son has c ystic fibrosis and just recently returned home from a 3-week hospital stay.] Physical Examination: [HEENT-PERRLA, EOMI. Cranial nerves II through XII grossly intact. TMs clear. Mucous membranes moist. No adenopathy. Cardiovascular-regular rate and rhythm without murmur or ectopy Lungs-diminished bilaterally with expiratory wheezes throughout. Patient has some mild tachypnea. There is no accessory muscle use or retractions. No conversational dyspnea. Abdomen-normoactive bowel sounds, soft, nontender, no rebound or rigidity, no peritoneal signs. Extremities-intact ?4, normal range of motion, normal pulses, atraumatic] Test Results: [None indicated] Emergency Department Course and Treatment: [Patient was given a DuoNeb aerosol and started on prednisone 40 mg. Patient given 1 dose of doxycycline.] Treatment Plan: [Patient will be treated with prednisone and doxycycline. I will write her for the albuterol solution for her nebulizer. Patient to follow- up with primary care physician in 5-7 days. She is advised to return if increasing shortness of breath or condition should worsen anyway.] Disposition: [Discharged home in stable condition.] Impression: [Asthmatic bronchitis] This note was generated with [employer] dictation software. It may contain incorrect words, spelling, and punctuation that were not noted in review of the chart prior to signing ED Disposition - Plan for ED Patient: Chief Complaint: Cough Referrals: Bernard Balbuena MD [Primary Care Provider] -
--- NOTE | 2018-07-30 08:35 | ED.DEP ---
ED Disposition - Plan for ED Patient: Chief Complaint: Cough Instructions: ED Bronchitis Asthmatic Prescriptions: Albuterol Aerosols [Ventolin Aerosols] 2.5 mg INHALATION Q4H PRN PRN #25 vial PRN Reason: Wheezing Doxycycline 100 mg PO BID #20 cap Prednisone [Deltasone] 20 mg PO BID #10 tab Referrals: Bernard Balbuena MD [Primary Care Provider] - 5-7 Days
[2018-07-30 08:38] VITALS: PULSE 67; RESP 20
[2018-07-30] MEDS: Doxycycline 100 MG CAPSULE PO (08:38)
[2018-07-30] MEDS: predniSONE 20 MG Tablet 40 MG PO (08:38)
[2018-07-30] MEDS: Ipratropium/Albuterol Sulfate 3 ML AMPUL.NEB INHALATION (08:38)
[2018-07-30 08:40] VITALS: BP 130/83; PULSE 79; RESP 22; TEMP 36.6; O2SAT 95
== END 2018-07-30 08:56 | disposition home or self-care (01) ==
LOC: ED 08:55
PROVIDERS: Emergency Provider Emergency Medicine; Family Provider Family Medicine; PCP Family Medicine
DX: J44.9 Chronic obstructive pulmonary disease, unspecified (principal); Z72.0 Tobacco use
CPT/HCPCS: 94640; 99283

== ENCOUNTER 2018-08-26 11:02 | Emergency (ER) | payer SELFPAY ==
[2018-08-26 11:03] VITALS: BP 125/89; PULSE 86; RESP 18; TEMP 36.6; O2SAT 99; BMI 24.3
[2018-08-26] MEDS: 0.9% Normal Saline 1,000 ML 1000 ML IV (11:38)
[2018-08-26] MEDS: proMETHazine 25 MG/ML Syringe 6.25 MG IV (11:38)
[2018-08-26 11:41] LABS: Absolute Lymphocyte Count 4.03 X10^3/ul (0.83-4.51); Absolute Neutrophil Count 12.6 X10^3/uL (2.0-7.7); Basophil# 0.02 X10^3/uL; Basophil% 0.1 % (0-1); Eosinophil# 0.05 X10^3/uL; Eosinophils% 0.3 % (0-5); Hemoglobin 16.1 g/dl (12.0-15.0); Lymphocyte # 4.03 X10^3/ul (4.0); Lymphocyte % 23.6 % (19-41); Mean Corp Hgb Conc 33.5 g/gl (32-36); Mean Corpuscular Hgb 33.1 pg (27.0-32.0); Mean Corpuscular Volume 98.6 fL (81-99); Mean Platelet Vol. 9.3 fl (6.2-12.0); Monocyte# 0.37 X10^3/uL; Monocyte% 2.2 % (0-10); Neutrophil # 12.58 X10^3/uL (2.7-7.7); Neutrophil % 73.5 % (47-70); Platelet Count 296 K/mm3 (150-450); RBC Distribution Width CV 13.3 % (11.6-14.6); Red Blood Count 4.87 M/mm3 (4.2-5.4); White Blood Count 17.1 K/mm3 (4.4-11.0)
[2018-08-26 11:42] LABS: POSITIVE COUNT NO; POSITIVE DIFFERENTIAL NO; POSITIVE MORPHOLOGY NO
[2018-08-26 11:50] LABS: ALB/GLOB Ratio 1.2 RATIO (0.9-2.4); AST(SGOT) 11 U/L (15-37); Alanine Aminotransfer ALT/SGPT 18 U/L (13-56); Albumin, Serum 4.3 g/dL (3.2-5.0); Alkaline Phosphatase 63 U/L (45-117); Anion Gap 8 (5-15); BUN 13 mg/dL (7-18); BUN/Creat Ratio 16.5 RATIO (10-20); Calcium,Total 9.3 mg/dL (8.5-10.1); Chloride 107 mmol/L (98-107); Creatinine, Serum 0.79 mg/dL (0.55-1.02); EST Glomerular Filtration Rate 88 mL/min (>60); Est Glom Filt Rate - Afr Amer 107 mL/min (>60); Estimated Creatinine Clearance 100.27 ml/min; Globulin 3.5 g/dL (2.2-4.2); Glucose 141 mg/dL (74-106); Lipase 65 U/L (73-393); Potassium 3.8 mmol/L (3.5-5.1); Protein, Total 7.8 g/dL (6.4-8.2); Sodium Level 141 mmol/L (136-145)
[2018-08-26] MEDS: Ondansetron 4 MG/2 ML Vial IV (12:04)
[2018-08-26 12:22] LABS: Pregnancy, Serum, hCG Quali. NEGATIVE Negative (0-9 Nonpreg)
[2018-08-26] MEDS: Capsaicin 0.025% 1 APPLIC Tube TOPICAL (13:00)
[2018-08-26 13:51] VITALS: BP 137/54; PULSE 67; RESP 18; O2SAT 97
--- NOTE | 2018-08-26 13:58 | ED.DCSUM_ITS ---
- ER Visit Summary Date of Service: 08/26/18 Chief Complaint: Nausea and vomiting History of Present Illness: The patient is a 33 F with nausea and vomiting since about 5 AM this morning. Patient uses marijuana frequently. She says her symptoms are improved with a hot bath or hot shower. No significant abdominal pain. No diarrhea. Patient has a history of this as well as cyclic vomiting syndrome. Physical Examination: Afebrile and vital signs unremarkable. Patient is dry heaving. Heart regular. Lungs clear. Abdomen soft. Skin appears normal. Test Results: White count 17.1 and glucose 141. Hepatic panel and lipase unremarkable. test negative Emergency Department Course and Treatment: Patient treated with a fluid bolus and Phenergan. He had no improvement. She then received Zofran and had no improvement. Patient was treated with capsaicin topical to her abdominal wall. Patient symptoms improved with Capzasin. She was able to tolerate ice chips and would like to go home. She has a history of leukocytosis and is aware. She has not been able to find a cause. Patient discharged home with a course of Zofran. Return for any new or worsening issues. Treatment Plan: As above Disposition: Discharge Impression: 1. Nausea vomiting 2. Leukocytosis This note was generated with [employer] dictation software. It may contain incorrect words, spelling, and punctuation that were not noted in review of the chart prior to signing ED Disposition - Plan for ED Patient: Chief Complaint: Nausea/Vomiting Referrals: Bernard Balbuena MD [Primary Care Provider] -
--- NOTE | 2018-08-26 13:58 | ED.DEP ---
ED Disposition - Plan for ED Patient: Chief Complaint: Nausea/Vomiting Instructions: ED Nausea Vomiting Prescriptions: Ondansetron [Zofran Odt] 4 mg PO Q8H PRN PRN #10 tab PRN Reason: Nausea Referrals: Bernard Balbuena MD [Primary Care Provider] -
--- OUTSIDE RECORDS SUMMARY | 2018-10-28 15:24 | XMS RPT_ITS ---
:1985 Author Organization OHIP Support Name Relationship Address Phone STEPHANIE WAY Unavailable [address] + [place] [address] [employer] Unavailable [address] + [place] [address] BLAIR, NAKITA Unavailable [address] + [place] [address] Unavailable [address] + [place] [address] [employer] Unavailable [address] + [place] [address] BLAIR, NAKITA Unavailable [address] + [place] [address] STEPHANIE AWY Unavailable [address] + [place] [address] BLAIR, NAKITA Unavailable [address] + [place] [address] [employer] Unavailable [address] + [place] [address] Unavailable [address] + [place] [address] BLAIR, NAKITA Unavailable [address] + [place] [address] UE Unavailable Unavailable Unavailable STEPHANIE WAY Unavailable [address] + [place] [address] BLAIR, NAKITA Unavailable [address] + [place] [address] UE Unavailable Unavailable Unavailable STEPHANIE WAY Unavailable [address] + [place] [address] BLAIR, NAKITA Unavailable [address] + [place] [address] UE Unavailable Unavailable Unavailable [employer] Unavailable [address] + [place] [address] SEAMUS, STEPHANIE Unavailable [address] + [place] [address] BLAIR, NAKITA Unavailable [address] + [place] [address] [employer] Unavailable [address] + [place] [address] SEAMUS, STEPHANIE Unavailable [address] + [place] [address] BLAIR, NAKITA Unavailable [address] + [place] [address] SEAMUS, STEPHANIE Unavailable [address] + [place] [address] BLAIR, NAKITA Unavailable [address] + [place] [address] UE Unavailable Unavailable Unavailable Care Team Providers Name Role Phone Esha, Bernard Primary Care Unavailable Eduardo Dang Attending Unavailable Elderbrock, Bernard Primary Care Unavailable Sherif Jones Attending Unavailable Elderbrock, Bernard Primary Care Unavailable Shima Matamoros Attending Unavailable Elderbrock, Bernard Primary Care Unavailable Opal Nelson Attending Unavailable Christy Jarrell Attending Unavailable Elderbrock, Bernard Referring Unavailable Elderbrock, Bernard Primary Care Unavailable Sandoval Gomez Attending Unavailable Elderbrock, Bernard Primary Care Unavailable Shima Matamoros Attending Unavailable Elderbrock, Bernard Primary Care Unavailable Franklin Silva Attending Unavailable Elderbrock, Bernard Primary Care Unavailable Sandoval Gomez Attending Unavailable PROBLEMS PROBLEMS No Problem Records FoundPROCEDURES PROCEDURES No Procedure Records FoundRESULTS RESULTS EMERGENCY DEPARTMENT Observed: 08/27/2018 Status: F Source: [place] SUMMARY 11:10 PM [facility] REPOSITORY [facility] Medical Records Department [address] [place] [address] Emergency Department Summary 08/27/18 2225 MR#: [id number] Acct: [id number] Name: NELIDA GLASS Rep #: [id number] : 1985 33 From: Shima Matamoros MD PCP: Bernard Balbuena MD Status: REG ER - ER Visit Summary Date of Service: 08/27/18 Chief Complaint: Vomiting and nausea History of Present Illness: The patient is a 33 F with reported history of cyclic vomiting. Patient does use marijuana couple times a week. She reports this particular episode of cyclic vomiting started yesterday morning. She was seen in the ER yesterday and was treated with Zofran followed by capsaicin topically to her abdomen. Patient states it did not help and only cause skin irritation. She continues to have vomiting today. Physical Examination: Vital signs remarkable only for heart rate of 110. Head neck examination unremarkable other than mild dry mucous membranes. Heart is regular rate and rhythm. Lung sounds are clear Abdomen is soft with some mid abdominal and epigastric tenderness. No guarding or rebound. Hypoactive bowel sounds present. Patient is anxious and intermittently tearful. Test Results: CBC was a white count of 18.9 which is consistent with visit from yesterday and prior visits for similar. Hemoglobin is concentrated at 16. Chemistry studies reveal a sodium of 135 and a potassium of 2.9. Emergency Department Course and Treatment: Patient was initially given Zofran, Ativan, and IV fluids. On repeat evaluation she reported mild improvement. No dry heaves are noted and no evidence of emesis in her emesis bag. She is given Reglan, Benadryl, and IV potassium replacement is ordered. On repeat examination patient states she had significant improvement in her symptoms. Just prior to completion of her potassium infusion, patient states she started to feel nauseated again. She will be given a dose of Phenergan. Her last dose of Reglan was 4 hours ago. Patient be discharged with prescription for Reglan and Benadryl. Treatment Plan: [] Disposition: Discharge Impression: 1. Vomiting, improved 2. Hypokalemia This note was generated with Wordster dictation software. It may contain incorrect words, [...] problems, contact your Primary Care Provider. Call [facility] ([phone]) or report to the closest Emergency Room. Call 911 if necessary. 08/27/18 9310 <Electronically signed by Shima Matamoros MD> Date Shima Matamoros MD Cosigner Signature (If Indicated): Date _ CC: Bernard Balbuena MD DISCHARGE INSTRUCTION Observed: 08/27/2018 Status: F Source: [place] 10:31 PM [facility] REPOSITORY [facility] Medical Records Department [address] [place] [address] Discharge Instruction 08/27/182229 MR#: [id number] Acct: [id number] Name: NELIDA GLASS Rep #: [id number] : 1985 33 From: Shima Matamoros MD PCP: Bernard Balbuena MD Status: REG ER ED Disposition - Plan for ED Patient: Disposition: Home or Assisted Living Chief Complaint: Nausea/Vomiting Instructions: ED Nausea Vomiting Prescriptions: DiphenhydrAMINE [Benadryl] 50 mg PO TID PRN PRN #14 capsule PRN Reason: Nausea/Emesis Metoclopramide [Reglan] 10 mg PO 4X/DAY PRN #20 tablet PRN Reason: Headache Referrals: Bernard Balbuena MD [Primary Care Provider] - 1 Week What to do if you have Problems For any increased pain, shortness of breath, bleeding, nausea or vomiting, chest pain, or any unexpected problems, contact your Primary Care Provider. Call [facility] ([phone]) or report to the closest Emergency Room. Call 911 if necessary. 08/27/182230 <Electronically signed by Shiam Matamoros MD> Date Shima Matamoros MD Cosigner Signature (If Indicated): Date CC: Bernard Balbuena MD CBC W/DIFF, AUTOMATED Collected: 08/27/2018 Status: F Source: [place] 5:00 PM [facility] REPOSITORY TYPE CODE TESTS RESULT OUT OF RANGE REFERENCE UNITS LAB L100.1000 4.4-11.0 K/mm3 High WBC 18.9 LAB L100.1200 4.2-5.4 M/mm3 Normal RBC 4.74 LAB L100.1300 12.0-15.0 g/dl High HGB 16.0 LAB L100.1400 37-47 % Normal HCT 44.9 LAB L100.1500 81-99 fL Normal MCV 94.7 LAB L100.1600 27.0-32.0 pg High MCH 33.8 LAB L100.1700 32-36 g/gl Normal MCHC 35.6 LAB L100.1810 11.6-14.6 % Normal RDW CV 13.0 LAB L100.1820 35.1-43.9 fl High RDW SD 45.6 LAB L100.1900 150-450 K/mm3 Normal PLT 311 LAB L100.2000 6.2-12.0 fl Normal MPV 9.2 LAB L100.2100 47-70 % High NEUT% 79.3 LAB L100.2200 19-41 % Low LY% 14.6 LAB L100.2300 0-10 % Normal MONO% 5.7 LAB L100.2400 0-5 % Normal EO% 0.0 LAB L100.2500 0-1 % Normal BASO% 0.1 LAB L100.2550 0.0-0.9 % Normal IM GRAN % 0.300 Result Comment: IG% - Immature Granulocytes (promyelocytes, myelocytes and metamyelocytes) > 1% indicates that a LEFT SHIFT is Present. LAB L100.2620 2.0-7.7 X10 3/uL High Absolute Neut 15.0 LAB L100.2720 0.83-4.51 X10 3/ul Normal Absolute Lymph 2.75 Performed By: #### L100.0100 #### [facility] [address] [place], [place], [id number] BASIC METABOLIC Collected: 08/27/2018 Status: F Source: [place] PROFILE (BMP) 5:00 PM [facility] REPOSITORY TYPE CODE TESTS RESULT OUT OF RANGE REFERENCE UNITS LAB L501.0100 74-106 mg/dL Normal GLU 106 Result Comment: Fasting Glucose result from 100 to 125 mg/dL suggests IMPAIRED HOMEOSTASIS per A.D.A. criteria. Please note revised GLUCOSE reference range effective 2017. LAB L501.1000 7-18 mg/dL Normal BUN 15 LAB L501.1100 0.55-1.02 mg/dL Normal CREAT,SERUM 0.74 Result Comment: The validity of the calculated GFR AND GFRAA in patients over 70 years has not been determined. Clinical correlation is essential. LAB L501.1110 >60 mL/min Normal EST GFR 94 Result Comment: Non- GFR Calc LAB L501.1115 >60 mL/min Normal EST GFR - AA 114 Result Comment: GFR Calc LAB L501.1255 ml/min Normal Estimated CRCL 107.04 LAB L501.1300 10-20 RATIO High BUN/CRE 20.2 LAB L501.2200 8.5-10 mg/dL .1 CA Normal 9.2 LAB L501.5300 136-14 mmol/L Low 5 NA 135 LAB L501.5600 3.5-5. mmol/L Low 1 K 2.9 Result Comment: Moderate Hemolysis, Result may be falsely increased. LAB L501.5900 98-107 mmol/L Low CL 93 LAB L501.6100 21.0-32.0 mmol/L Normal CO2 29.0 LAB L501.6200 5-15 Normal GAP 13 Performed By: #### L500.2500 #### [facility] [address] [place], [address] EMERGENCY DEPARTMENT Observed: 08/26/2018 Status: F Source: [place] SUMMARY 4:14 PM [facility] REPOSITORY [facility] Medical Records Department [address] [place] [address] Emergency Department Summary 08/26/18 1355 MR#: [id number] Acct: [id number] Name: NELIDA GLASS Rep #: [id number] : 1985 33 From: Sherif Jones MD PCP: Bernard Balbuena MD Status: DEP ER - ER Visit Summary Date of Service: 08/26/18 Chief Complaint: Nausea and vomiting History of Present Illness: The patient is a 33 F with nausea and vomiting since about 5 AM this morning. Patient uses marijuana frequently. She says her symptoms are improved with a hot bath or hot shower. No significant abdominal pain. No diarrhea. Patient has a history of this as well as cyclic vomiting syndrome. Physical Examination: Afebrile and vital signs unremarkable. Patient is dry heaving. Heart regular. Lungs clear. Abdomen soft. Skin appears normal. Test Results: White count 17.1 and glucose 141. Hepatic panel and lipase unremarkable. test negative Emergency Department Course and Treatment: Patient treated with a fluid bolus and Phenergan. He had no improvement. She then received Zofran and had no improvement. Patient was treated with capsaicin topical to her abdominal wall. Patient symptoms improved with Capzasin. She was able to tolerate ice chips and would like to go home. She has a history of leukocytosis and is aware. She has not been able to find a cause. Patient discharged home with a course of Zofran. Return for any new or worsening issues. Treatment Plan: As above Disposition: Discharge Impression: 1. Nausea vomiting 2. Leukocytosis This note was generated with Wordster dictation software. It may contain incorrect words, [...] your Primary Care Provider. Call [facility] ([phone]) or report to the closest Emergency Room. Call 911 if necessary. 08/26/18 4949 <Electronically signed by Sherif Jones MD> Date Sherif Jones MD Cosigner Signature (If Indicated): Date CC: Bernard aBlbuena MD DISCHARGE INSTRUCTION Observed: 08/26/2018 Status: F Source: [place] 4:14 PM [facility] REPOSITORY [facility] Medical Records Department [address] [place] [address] Discharge Instruction 08/26/18 1358 MR#: [id number] Acct: [id number] Name: NELIDA GLASS Rep #: [id number] : 1985 33 From: Sherif Jones MD PCP: Bernard Balbuena MD Status: DEP ER ED Disposition - Plan for ED Patient: Chief Complaint: Nausea/Vomiting Instructions: ED Nausea Vomiting Prescriptions: Ondansetron [Zofran Odt] 4 mg PO Q8H PRN PRN #10 tab PRN Reason: Nausea Referrals: Bernard Balbuena MD [Primary Care Provider] - What to do if you have Problems For any increased pain, shortness of breath, bleeding, nausea or vomiting, chest pain, or any unexpected problems, contact your Primary Care Provider. Call [facility] [employer] [facility] ([phone]) or report to the closest Emergency Room. Call 911 if necessary. 08/26/18 1614 <Electronically signed by Sherif Jones MD> Date Sherif Jones MD Cosigner Signature (If Indicated): Date CC: Bernard Balbuena MD CBC W/DIFF, AUTOMATED Collected: 08/26/2018 Status: F Source: [place] 11:25 AM [facility] REPOSITORY TYPE CODE TESTS RESULT OUT OF RANGE REFERENCE UNITS LAB L100.1000 4.4-11.0 K/mm3 High WBC 17.1 LAB L100.1200 4.2-5.4 M/mm3 Normal RBC 4.87 LAB L100.1300 12.0-15.0 g/dl High HGB 16.1 LAB L100.1400 37-47 % High HCT 48.0 LAB L100.1500 81-99 fL Normal MCV 98.6 LAB L100.1600 27.0-32.0 pg High MCH 33.1 LAB L100.1700 32-36 g/gl Normal MCHC 33.5 LAB L100.1810 11.6-14.6 % Normal RDW CV 13.3 LAB L100.1820 35.1-43.9 fl High RDW SD 48.0 LAB L100.1900 150-450 K/mm3 Normal PLT 296 LAB L100.2000 6.2-12.0 fl Normal MPV 9.3 LAB L100.2100 47-70 % High NEUT% 73.5 LAB L100.2200 19-41 % Normal LY% 23.6 LAB L100.2300 0-10 % Normal MONO% 2.2 LAB L100.2400 0-5 % Normal EO% 0.3 LAB L100.2500 0-1 % Normal BASO% 0.1 LAB L100.2550 0.0-0.9 % Normal IM GRAN % 0.300 Result Comment: IG% - Immature Granulocytes (promyelocytes, myelocytes and metamyelocytes) > 1% indicates that a LEFT SHIFT is Present. LAB L100.2620 2.0-7.7 X10 3/uL High Absolute Neut 12.6 LAB L100.2720 0.83-4.51 X10 3/ul Normal Absolute Lymph 4.03 Performed By: #### L100.0100 #### [facility] [address] [place], [place], [address] COMPREHENSIVE METABOLIC Collected: 08/26/2018 Status: F Source: [facility] 11:25 AM [facility] REPOSITORY TYPE CODE TESTS RESULT OUT OF RANGE REFERENCE UNITS LAB L501.0100 74-106 mg/dL High GLU 141 Result Comment: Fasting Glucose result greater than or equal to 126 mg/dL suggests DIABETES MELLITUS per A.D.A. criteria. Please note revised GLUCOSE reference range effective 2017. LAB L501.1000 7-18 mg/dL Normal BUN 13 LAB L501.1100 0.55-1.02 mg/dL Normal CREAT,SERUM 0.79 Result Comment: The validity of the calculated GFR AND GFRAA in patients over 70 years has not been determined. Clinical correlation is essential. LAB L501.1110 >60 mL/min Normal EST GFR 88 Result Comment: Non- GFR Calc LAB L501.1115 >60 mL/min Normal EST GFR - AA 107 Result Comment: GFR Calc LAB L501.1255 ml/min Normal Estimated CRCL 100.27 LAB L501.1300 10-20 RATIO BUN/CRE Normal 16.5 LAB L501.1500 6.4-8. g/dL 2 T PROT Normal 7.8 LAB L501.1800 3.2-5. g/dL 0 ALB Normal 4.3 LAB L501.1950 2.2-4. g/dL 2 GLOB Normal 3.5 LAB L501.2000 0.9-2. RATIO 4 A/G Normal 1.2 LAB L501.2200 8.5-10 mg/dL .1 CA Normal 9.3 LAB L501.4100 15-37 U/L Low AST 11 LAB L501.4305 45-117 U/L ALK P Normal 63 LAB L501.4405 13-56 U/L ALT Normal 18 LAB L501.4600 0.20-1 mg/dL .00 T BILI Normal 0.60 LAB L501.5300 136-14 mmol/L 5 NA Normal 141 LAB L501.5600 3.5-5. mmol/L 1 K Normal 3.8 LAB L501.5900 98-107 mmol/L CL Normal 107 LAB L501.6100 21.0-3 mmol/L 2.0 CO2 Normal 26.0 LAB L501.6200 5-15 GAP Normal 8 Performed By: #### L500.4050, L501.2450 #### [facility] [address] [facility] [place], [address] LIPASE Collected: 08/26/2018 Status: F Source: [place] 11:25 AM [facility] REPOSITORY TYPE CODE TESTS RESULT OUT OF REFERENCE UNITS RANGE LAB L501.2450 73-393 U/L Low LIPASE 65 Performed By: #### L500.4050, L501.2450 #### [facility] [address] [facility]. [place], [place], [address] ,SERUM,HCG QUALI. Collected: Status: F Source: [place] 08/26/2018 11:25 AM [facility] REPOSITORY TYPE CODE TESTS RESULT OUT OF REFERENCE UNITS RANGE LAB L700.6700 =>Qualitative mIU/mL Normal HCG Qual < 1 triggr LAB L700.7000 0-9 Nonpreg Negative Normal HCGSQUAL NEGATIVE Performed By: #### L700.6800 #### [facility] [address] [place], [address] PROGRESS Observed: 08/12/2018 Status: COMPLETED Source: [place] 12:14 PM [facility] REPOSITORY HNO ID: [id number] Author: Klarissa Lema Service: (none) Author Type: Movable Bulkhead Installer Type: Progress Notes Filed: 08/12/2018 12:17 PM Note Text: POPULATION HEALTH POLICE INSPECTOR QUICKNOTE Provider Action/FYI: Mailed certified letter to the patient to verify PCP. This was discuss at the team let meeting. Patient identified by name and . Klarissa Lema MA CNPTOUTREACH Observed: 08/12/2018 Status: COMPLETED Source: [place] 12:00 AM [facility] REPOSITORY Patient Outreach (FAMPWS) NELIDA GLASS ([id number]) 1985 F Date Time Provider Department 08/12/18 KLARISSA LEMA) FAMPWS During your visit today, we recorded the following information about you: Klarissa Lema MA 08/12/2018 12:17 PM Signed POPULATION HEALTH POLICE INSPECTOR TAISHA Provider Action/FYI: Mailed certified letter to the patient to verify PCP. This was discuss at the team let meeting. Patient identified by name and . Klarissa Lema MA Allergies As of Date: 08/12/2018 (No Known Allergies) Date Reviewed: 05/14/2016 Reviewed by: Kaity Ulloa MA - Fully Assessed Reason for Visit: PHMA/Care Gap Outreach [0675] Prescriptions as of 08/12/2018 Sig: IPRATROPIUM BROMIDE 0.02 % SO* Use 2.5 mL via nebulizer four* ALBUTEROL 90 MCG/ACTUATION AE* Inhale 2 Puffs as instructed * * ONDANSETRON 4 MG DISINTEGRATI* Take 1 tablet by mouth every * * PROMETHAZINE 25 MG TABLET Take 1 tablet by mouth as nee* Problem List As Of Date 08/12/2018 Noted Resolved VOMITING ALONE [R11.11] Duodenitis [K29.80] INVALID FOR* Nausea [R11.0] Acute gastritis without mention of hemorrhage [*INVALID FOR* Nausea with vomiting [R11.2] INVALID FOR* Ectopic [O00.90] INVALID FOR* Letter Text Bernard Balbuena MD [facility] [address] [place] [address] Office: August 12, 2018 Nelida Glass [address] [facility] [address] Dear Ms. Glass, Our office has been attempting to reach you by telephone and we were not successful. The phone number we have on file for you is [phone] (home) . We have identified some questions that we would like to discuss to make sure that your health is fully optimized, so I have asked Klarissa Lema MA to contact you to discuss this further. Please contact her at the direct line listed below at your first convenience to update your demographic information and to discuss your health status. As your primary care physician, I would like to urge you to keep up with optimal health care. Keeping up to date with routine preventive care and best practices can greatly reduce your risk of a brain or heart attack, colon cancer, breast cancer, heart disease, high blood sugar complications and more. Our team is very happy to assist you with discussing or scheduling anything you need. If for any reason you have established with a new primary care physician, please notify my office so that we can update our records to prevent any further erroneous communications to you. Thank you for allowing us to be involved in your care. Sincerely, Bernard Balbuena MD (Signed electronically to expedite mailing) Encounter Status:Closed by KLARISSA LEMA on 08/12/18 DISCHARGE INSTRUCTION Observed: 07/30/2018 Status: F Source: [place] 8:37 AM [facility] REPOSITORY [facility] Medical Records Department [address] [place] [address] Discharge Instruction 07/30/18 0835 MR#: [id number] Acct: [id number] Name: NELIDA GLASS Rep #: [id number] : 1985 33 From: Eduardo Dang DO PCP: Bernard Balbuena MD Status: PRE ER ED Disposition - Plan for ED Patient: Chief Complaint: Cough Instructions: ED Bronchitis Asthmatic Prescriptions: Albuterol Aerosols [Ventolin Aerosols] 2.5 mg INHALATION Q4H PRN PRN #25 vial PRN Reason: Wheezing Doxycycline 100 mg PO BID #20 cap Prednisone [Deltasone] 20 mg PO BID #10 tab Referrals: Bernard Balbuena MD [Primary Care Provider] - 5-7 Days What to do if you have Problems For any increased pain, shortness of breath, bleeding, nausea or vomiting, chest pain, or any unexpected problems, contact your Primary Care Provider. Call [facility] Registry ([phone]) or report to the closest Emergency Room. Call 911 if necessary. 07/30/1837 <Electronically signed by Eduardo Dang DO> Date Eduardo Dang DO Cosigner Signature (If Indicated): Date CC: Bernard Balbuena MD EMERGENCY DEPARTMENT Observed: 07/30/2018 Status: F Source: [place] SUMMARY 8:35 AM [facility] REPOSITORY [facility] Medical Records Department [address] [place] [address] Emergency Department Summary 07/30/18 0832 MR#: [id number] Acct: [id number] Name: NELIDA GLASS Rep #: [id number] : 1985 33 From: Eduardo Dang DO PCP: Bernard Balbuena MD Status: PRE ER - ER Visit Summary Date of Service: 07/30/18 Chief Complaint: [Cough and shortness of breath] History of Present Illness: The patient is a 33 F [presents to the emergency department with an illness that started about 5 days ago. Patient states that initially she had some vomiting and diarrhea for about 24 hours that then resolved. Since that time patient's been coughing and bringing up green and yellow phlegm. Patient's had subjective fever, chills, and sweats. Patient feels short of breath with activity. She does have a history of COPD. Patient continues to smoke. She denies recent travel or surgery. She denies any hemoptysis. She denies sick contacts although she states that her son has cystic fibrosis and just recently returned home from a 3-week hospital stay.] Physical Examination: [HEENT-PERRLA, EOMI. Cranial nerves II through XII grossly intact. TMs clear. Mucous membranes moist. No adenopathy. Cardiovascular-regular rate and rhythm without murmur or ectopy Lungs-diminished bilaterally with expiratory wheezes throughout. Patient has some mild tachypnea. There is no accessory muscle use or retractions. No conversational dyspnea. Abdomen-normoactive bowel sounds, soft, nontender, no rebound or rigidity, no peritoneal signs. Extremities-intact 4, normal range of motion, normal pulses, atraumatic] Test Results: [None indicated] Emergency Department Course and Treatment: [Patient was given a DuoNeb aerosol and started on prednisone 40 mg. Patient given 1 dose of doxycycline.] Treatment Plan: [Patient will be treated with prednisone and doxycycline. I will write her for the albuterol solution for her nebulizer. Patient to follow- up with primary care physician in 5-7 days. She is advised to return if increasing shortness of breath or condition should worsen anyway.] Disposition: [Discharged home in stable condition.] Impression: [Asthmatic bronchitis] This note was generated with Wordster dictation software. It may contain incorrect words, spelling, and punctuation that were not noted in review of the chart prior to signing ED Disposition - Plan for ED Patient: Chief Complaint: Cough Referrals: Bernard Balbuena MD [Primary Care Provider] - What to do if you have Problems For any increased pain, shortness of breath, bleeding, nausea or vomiting, chest pain, or any unexpected problems, contact your Primary Care Provider. Call [facility] ([phone]) or report to the closest Emergency Room. Call 911 if necessary. 07/30/18 0835 <Electronically signed by Eduardo Dang DO> Date Eduardo Dang DO Cosigner Signature (If Indicated): Date CC: Bernard Balbuena MD EMERGENCY DEPARTMENT Observed: 07/02/2018 Status: F Source: [place] SUMMARY 11:12 PM [facility] REPOSITORY [facility] Medical Records Department [address] [place] [address] Emergency Department Summary 07/02/18 1700 MR#: [id number] Acct: [id number] Name: NELIDA GLASS Rep #: [id number] : 1985 33 From: Sandoval Gomez MD [...] Cyclic vomiting. This note was generated with Wordster dictation software. It may contain incorrect words, [...] your Primary Care Provider. Call [facility] ([phone]) or report to the closest Emergency Room. Call 911 if necessary. 07/02/18 2312 <Electronically signed by Sandoval Gomez MD> Date Sandoval Gomez MD Cosigner Signature (If Indicated): Date CC: Bernard Balbuena MD ,SERUM,HCG QUALI. Collected: Status: F Source: [place] 07/02/2018 4:20 PM [facility] REPOSITORY TYPE CODE TESTS RESULT OUT OF REFERENCE UNITS RANGE LAB L700.7000 0-9 Nonpreg Negative Normal HCGSQUAL NEGATIVE LAB L700.6700 =>Qualitative mIU/mL Normal HCG Qual < 1 triggr Performed By: #### L700.6800 #### [facility] [address] [place], [address] EMERGENCY DEPARTMENT Observed: 04/29/2018 Status: F Source: [place] SUMMARY 10:57 PM [facility] REPOSITORY [facility] Medical Records Department [address] [place] [address] Emergency Department Summary 04/29/18 1700 MR#: [id number] Acct: [id number] Name: NELIDA GLASS Rep #: [id number] : 1985 33 From: Franklin Silva MD [...] 2. Dehydration This note was generated with Wordster dictation software. It may contain incorrect words, spelling, and punctuation that were not noted in review of the chart prior to signing ED Disposition - Plan for ED Patient: Disposition: Home or Assisted Living Chief Complaint: Nausea/Vomiting Instructions: When Your Child Has Cyclic Vomiting Syndrome (CVS) Referrals: Bernard Balbuena MD [Primary Care Provider] - As Needed What to do if you have Problems For any increased pain, shortness of breath, bleeding, nausea or vomiting, chest pain, or any unexpected problems, contact your Primary Care Provider. Call [facility] ([phone]) or report to the closest Emergency Room. Call 911 if necessary. 04/29/18 2474 <Electronically signed by Franklin Silva MD> Date Franklin Silva MD Cosigner Signature (If Indicated): Date CC: Bernard Balbuena MD EMERGENCY DEPARTMENT Observed: 03/25/2018 Status: F Source: [place] SUMMARY 12:27 AM [facility] REPOSITORY [facility] Medical Records Department [address] [place] [address] Emergency Department Summary 03/24/18 1601 MR#: [id number] Acct: [id number] Name: NELIDA GLASS Rep #: [id number] : 1985 32 From: Shima Matamoros MD [...] Vomiting, improved This note was generated with Wordster dictation software. It may contain incorrect words, [...] your Primary Care Provider. Call [facility] ([phone]) or report to the closest Emergency Room. Call 911 if necessary. 03/25/18 0027 <Electronically signed by Shima Matamoros MD> Date Shima Matamoros MD Cosigner Signature (If Indicated): Date CC: Bernard Balbuena MD DISCHARGE INSTRUCTION Observed: 03/24/2018 Status: F Source: [place] 9:18 PM [facility] REPOSITORY [facility] Medical Records Department [address] [place] [address] Discharge Instruction 03/24/182116 MR#: [id number] Acct: [id number] Name: NELIDA GLASS Rep #: [id number] : 1985 32 From: Shima Matamoros MD [...] your Primary Care Provider. Call [facility] ([phone]) or report to the closest Emergency Room. Call 911 if necessary. 03/24/182117 <Electronically signed by Shima Matamoros MD> Date Shima Lovell Signature (If Indicated): Date CC: Bernard Balbuena MD BASIC METABOLIC Collected: 03/24/2018 Status: F Source: [place] PROFILE (BMP) 8:23 PM [facility] REPOSITORY TYPE CODE TESTS RESULT OUT OF [...] GAP 7 Performed By: #### L500.2500 #### [facility] [place], [address] BASIC METABOLIC Collected: 03/24/2018 Status: F Source: [place] PROFILE (BMP) 4:00 PM [facility] REPOSITORY TYPE CODE TESTS RESULT OUT OF [...] Performed By: #### L500.2500, L500.3400, L501.2450 #### [facility] [address] [place], [place], [address] LIVER PROFILE Collected: 03/24/2018 Status: F Source: [place] 4:00 PM [facility] REPOSITORY TYPE CODE TESTS RESULT OUT OF [...] Performed By: #### L500.2500, L500.3400, L501.2450 #### [facility] [address] [place], [place], [address] LIPASE Collected: 03/24/2018 Status: F Source: [place] 4:00 [facility] REPOSITORY TYPE CODE TESTS RESULT OUT OF REFERENCE UNITS RANGE LAB L501.2450 73-393 U/L Low LIPASE 44 Performed By: #### L500.2500, L500.3400, L501.2450 #### [facility] [address] [facility]. [place], [place], [address] CBC W/DIFF, AUTOMATED Collected: 03/24/2018 Status: C Source: [place] 4:00 [facility] REPOSITORY TYPE CODE TESTS RESULT OUT OF [...] 1505 PATH REV previously reported as: December jose Performed By: #### L100.0100 #### [facility] [address] [place] [address], [id number] ,SERUM,HCG QUALI. Collected: Status: F Source: [place] 03/24/2018 4:00 PM [facility] REPOSITORY TYPE CODE TESTS RESULT OUT OF REFERENCE UNITS RANGE LAB L700.6700 =>Qualitative mIU/mL Normal HCG Qual < 1 triggr LAB L700.7000 0-9 Nonpreg Negative Normal HCGSQUAL NEGATIVE Performed By: #### L700.6800 #### [facility] [address] [place], [address] EMERGENCY DEPARTMENT Observed: 12/26/2017 Status: F Source: [place] SUMMARY 1:24 AM [facility] REPOSITORY [facility] Medical Records Department [address] [place] [address] [place] [address] Emergency Department Summary 12/25/17 1827 MR#: [id number] Acct: [id number] Name: NELIDA GLASS Rep #: [id number] : 1985 32 From: Sandoval Gomez MD [...] 1. Vomiting/diarrhea. This note was generated with Wordster dictation software. It may contain incorrect words, [...] your Primary Care Provider. Call [facility] ([phone]) or report to the closest Emergency Room. Call 911 if necessary. 12/26/17 0124 <Electronically signed by Sandoval Gomez MD> Date Sandoval Gomez MD Cosigner Signature (If Indicated): Date CC: Bernard Balbuena MD BASIC METABOLIC Collected: 12/25/2017 Status: F Source: [place] PROFILE ([facility]) 5:40 PM [facility] REPOSITORY TYPE CODE TESTS RESULT OUT OF [...] GAP 10 Performed By: #### L500.2500 #### [facility] [address] [facility] [place], [address] ,SERUM,HCG QUALI. Collected: Status: F Source: [place] 12/25/2017 5:40 PM [facility] REPOSITORY TYPE CODE TESTS RESULT OUT OF REFERENCE UNITS RANGE LAB L700.7000 0-9 Nonpreg Negative Normal HCGSQUAL NEGATIVE LAB L700.6700 =>Qualitative mIU/mL Normal HCG Qual < 1 triggr Performed By: #### L700.6800 #### [facility] [address] [facility] [place], [address] DISCHARGE INSTRUCTION Observed: 09/28/2017 Status: F Source: [place] 4:57 PM [facility] REPOSITORY [facility] Medical Records Department [address] [place] [address] Discharge Instruction 09/28/17 1656 MR#: [id number] Acct: [id number] Name: NELIDA GLASS Rep #: [id number] : 1985 32 From: Opal Nelson MD [...] your Primary Care Provider. Call [facility] ([phone]) or report to the closest Emergency Room. Call 911 if necessary. 09/28/17 7427 <Electronically signed by Opal Nelson MD> Date Opal Nelson MD Cosigner Signature (If Indicated): Date CC: Bernard Balbuena MD EMERGENCY DEPARTMENT Observed: 09/28/2017 Status: F Source: [place] SUMMARY 4:56 PM [facility] REPOSITORY [facility] Medical Records Department [address] [place] [address] Emergency Department Summary 09/28/17 1345 MR#: [id number] Acct: [id number] Name: NELIDA GLASS Rep #: [id number] : 1985 32 From: Opal Nelson MD [...] and diarrhea This note was generated with Wordster dictation software. It may contain incorrect words, [...] problems, contact your Primary Care Provider. Call [employer] [facility] ([phone]) or report to the closest Emergency Room. Call 911 if necessary. 09/28/17 5811 <Electronically signed by Opal Nelson MD> Date Opal Nelson MD Cosigner Signature (If Indicated): Date CC: Bernard Balbuena MD URINALYSIS, COMPLETE Collected: 09/28/2017 Status: F Source: [place] 12:56 PM [facility] REPOSITORY Order Comment: Order Date: 09/28/17 COLOR [...] URINE 2+ Performed By: #### L400.0001 #### [facility] [address] [place], [address] CBC W/DIFF, AUTOMATED Collected: 09/28/2017 Status: F Source: [place] 12:50 PM [facility] REPOSITORY TYPE CODE TESTS RESULT OUT OF [...] Lymph 3.08 Performed By: #### L100.0100 #### [facility] [address] [place], [address] BASIC METABOLIC Collected: 09/28/2017 Status: F Source: [place] PROFILE (BMP) 12:50 PM [facility] REPOSITORY TYPE CODE TESTS RESULT OUT OF [...] GAP 11 Performed By: #### L500.2500 #### [facility] [address] [place], [place], [address] ,SERUM,HCG QUALI. Collected: Status: F Source: [place] 09/28/2017 12:50 PM [facility] REPOSITORY TYPE CODE TESTS RESULT OUT OF REFERENCE UNITS RANGE LAB L700.7000 0-9 Nonpreg Negative Normal HCGSQUAL NEGATIVE LAB L700.6700 =>Qualitative mIU/mL Normal HCG Qual < 1 triggr Performed By: #### L700.6800 #### [facility] [address] [place], [address] LIVER PROFILE Collected: 09/28/2017 Status: F Source: [place] 12:50 PM [facility] REPOSITORY TYPE CODE TESTS RESULT OUT OF [...] BILI 0.05 Performed By: #### L500.3400 #### [facility] [address] [place], [place], [address] LIPASE Collected: 09/28/2017 Status: F Source: [place] 12:50 PM [facility] REPOSITORY TYPE CODE TESTS RESULT OUT OF REFERENCE UNITS RANGE LAB L501.2450 73-393 U/L Low LIPASE 65 Performed By: #### L501.2450 #### [facility] [address] [place], [address] ALLERGIES ALLERGIES DATE TYPE / CODE NAME / CODE REACTION SEVERITY SOURCE 08/26/2018 Miscellaneous FLEA COLLARS Hives Unknown [place] Allergy/[id number](S [facility] [place]) Hospital Repository ENCOUNTERS ENCOUNTERS ADMIT/DISCHARGE ACCOUNT ADMITTING ENCOUNTER LOCATION SOURCE NUMBER CLASS 08/27/2018/ [id number] [place] [facility] ing:ED Repository 08/26/2018/ [id number] Emergency [place] 1 [facility] ing:ED Repository 07/30/2018/ [id number] Emergency [place] 8 0 [facility] ing:ED Repository 07/02/2018/ [id number] Emergency [place] 0 [facility] ing:ED Repository 04/29/2018/ [id number] Emergency [place] 8 0 [facility] ing:ED Repository 03/24/2018/ [id number] Emergency [place] 8 4 [facility] ing:ED Repository 12/25/2017/ [id number] Emergency [place] 8 3 [facility] ing:ED Repository 12/05/2017/ [id number] Ambulatory BMSBuilding:B [place] 8 5 [facility] Repository 09/28/2017/ [id number] Emergency [place] 8 2 [facility] ing:ED Repository PAYERS PAYERS ENCOUNTER GUARANTOR PAYER SUBSCRIBER SOURCE 08/27/2018 [place] A Primary NOT GIVENUNK [place] [id number] Insurance:SELF PAY [facility] [address]Lvp: Number: Effective Repository Date:2018-08-27 () 08/26/2018 NEL[place] A Primary NOT GIVENUNK [place] [id number] Insurance:SELF PAY [facility] [address]Frp: Number: Effective Repository Date:2018-08-26 () 07/30/2018 NEL[place] A Primary NOT GIVENUNK [place] [id number] Insurance:SELF PAY [facility] [place] [address]Hwz: Number: Effective Repository Date:2018-07-30 () 07/02/2018 NEL[place] A Primary NOT GIVENUNK [place] [id number] Insurance:SELF PAY [facility] [place] [address]Kna: Number: Effective Repository Date:2018-07-02 () 04/29/2018 NEL[place] A Primary NOT GIVENUNK [place] [id number] Insurance:SELF PAY [facility] [place] [address]Itk: Number: Effective Repository Date:2018-04-29 () 03/24/2018 NEL[place] A Primary NOT GIVENUNK [place] [id number] Insurance:SELF PAY [facility] [place] [address]Fzj: Number: Effective Repository Date:2018-03-24 () 12/25/2017 NEL[place] A Primary NOT GIVENUNK [place] [id number] Insurance:SELF PAY [facility] [place] [address]Kpw: Number: Effective Repository Date:2017-12-25 () 12/05/2017 NEL[place] A Primary NOT GIVENUNK [place] [id number] Insurance:SELF PAY [facility] [place] [address]Vfa: Number: Effective Repository Date:2017-12-05 () 09/28/2017 Nelida Sandy Primary NOT GIVENUNK [place] [id number] Insurance:SELF PAY [facility] [place] [address]Ocy: Number: Effective Repository Date:2017-09-28 ()
== END 2018-08-26 14:24 | disposition home or self-care (01) ==
PROVIDERS: Emergency Provider Emergency Medicine; Family Provider Family Medicine; PCP Family Medicine
DX: R11.2 Nausea with vomiting, unspecified (principal); D72.829 Elevated white blood cell count, unspecified; F12.90 Cannabis use, unspecified, uncomplicated
CPT/HCPCS: 80053; 83690; 84703; 85025; 99283; J7030; A4216; J2405

== ENCOUNTER 2018-08-27 16:19 | Emergency (ER) | payer SELFPAY ==
[2018-08-26 11:03] VITALS: BMI 24.3
[2018-08-27 16:21] VITALS: BP 112/73; PULSE 110; RESP 18; TEMP 36.6; O2SAT 99; BMI 22.1
[2018-08-27] MEDS: 0.9% Normal Saline 1,000 ML 1000 ML IV (16:58)
[2018-08-27] MEDS: LORazepam 2 MG/ML Syringe 0.5 MG IV (17:03)
[2018-08-27] MEDS: Ondansetron 4 MG/2 ML Vial IV (17:03)
[2018-08-27 17:22] LABS: Absolute Lymphocyte Count 2.75 X10^3/ul (0.83-4.51); Basophil# 0.01 X10^3/uL; Basophil% 0.1 % (0-1); Hematocrit 44.9 % (37-47); Lymphocyte # 2.75 X10^3/ul (4.0); Lymphocyte % 14.6 % (19-41); Mean Corp Hgb Conc 35.6 g/gl (32-36); Mean Corpuscular Hgb 33.8 pg (27.0-32.0); Mean Corpuscular Volume 94.7 fL (81-99); Mean Platelet Vol. 9.2 fl (6.2-12.0); Monocyte# 1.08 X10^3/uL; Monocyte% 5.7 % (0-10); Neutrophil # 14.99 X10^3/uL (2.7-7.7); Neutrophil % 79.3 % (47-70); Platelet Count 311 K/mm3 (150-450); RBC Distribution Width SD 45.6 fl (35.1-43.9); Red Blood Count 4.74 M/mm3 (4.2-5.4); White Blood Count 18.9 K/mm3 (4.4-11.0)
[2018-08-27 17:23] LABS: POSITIVE COUNT NO; POSITIVE DIFFERENTIAL NO; POSITIVE MORPHOLOGY NO
[2018-08-27 17:46] LABS: Anion Gap 13 (5-15); BUN 15 mg/dL (7-18); BUN/Creat Ratio 20.2 RATIO (10-20); Calcium,Total 9.2 mg/dL (8.5-10.1); Chloride 93 mmol/L (98-107); Creatinine, Serum 0.74 mg/dL (0.55-1.02); EST Glomerular Filtration Rate 94 mL/min (>60); Est Glom Filt Rate - Afr Amer 114 mL/min (>60); Estimated Creatinine Clearance 107.04 ml/min; Glucose 106 mg/dL (74-106); Potassium 2.9 mmol/L (3.5-5.1); Sodium Level 135 mmol/L (136-145)
[2018-08-27] MEDS: Metoclopramide 10 MG/2 ML Vial IV (18:11)
[2018-08-27] MEDS: DiphenhydrAMINE 50 MG/ML Syringe 25 MG IV (18:11)
[2018-08-27] MEDS: 0.9% Normal Saline 1,000 ML 150 ML IV (18:15)
[2018-08-27] MEDS: Potassium Chloride 10mEq/100mL 10 MEQ/100 ML IV.SOLN. 100 MEQ IV BOLUS ×4 (18:38→21:47)
[2018-08-27 20:52] VITALS: BP 103/65; RESP 18
[2018-08-27] MEDS: proMETHazine 25 MG/ML Syringe 12.5 MG IV (22:26)
--- NOTE | 2018-08-27 22:30 | ED.DCSUM_ITS ---
- ER Visit Summary Date of Service: 08/27/18 Chief Complaint: Vomiting and nausea History of Present Illness: The patient is a 33 F with reported history of cyclic vomiting. Patient does use marijuana couple times a week. She reports this particular episode of cyclic vomiting started yesterday morning. She was seen in the ER yesterday and was treated with Zofran followed by capsaicin topically to her abdomen. Patient states it did not help and only cause skin irritation. She continues to have vomiting today. Physical Examination: Vital signs remarkable only for heart rate of 110. Head neck examination unremarkable other than mild dry mucous membranes. Heart is regular rate and rhythm. Lung sounds are clear Abdomen is soft with some mid abdominal and epigastric tenderness. No guarding or rebound. Hypoactive bowel sounds present. Patient is anxious and intermittently tearful. Test Results: CBC was a white count of 18.9 which is consistent with visit from yesterday and prior visits for similar. Hemoglobin is concentrated at 16. Chemistry studies reveal a sodium of 135 and a potassium of 2.9. Emergency Department Course and Treatment: Patient was initially given Zofran, Ativan, and IV fluids. On repeat evaluation she reported mild improvement. No dry heaves are noted and no evidence of emesis in her emesis bag. She is given Reglan, Benadryl, and IV potassium replacement is ordered. On repeat examination patient states she had significant improvement in her symptoms. Just prior to completion of her potassium infusion, patient states she started to feel nauseated again. She will be given a dose of Phenergan. Her last dose of Reglan was 4 hours ago. Patient be discharged with prescription for Reglan and Benadryl. Treatment Plan: [] Disposition: Discharge Impression: 1. Vomiting, improved 2. Hypokalemia This note was generated with [employer] software. It may contain incorrect words, spelling, and punctuation that were not noted in review of the chart prior to signing ED Disposition - Plan for ED Patient: Chief Complaint: Nausea/Vomiting Referrals: Bernard Balbuena MD [Primary Care Provider] -
--- NOTE | 2018-08-27 22:30 | ED.DEP ---
ED Disposition - Plan for ED Patient: Disposition: Home or Assisted Living Chief Complaint: Nausea/Vomiting Instructions: ED Nausea Vomiting Prescriptions: DiphenhydrAMINE [Benadryl] 50 mg PO TID PRN PRN #14 capsule PRN Reason: Nausea/Emesis Metoclopramide [Reglan] 10 mg PO 4X/DAY PRN #20 tablet PRN Reason: Headache Referrals: Bernard Balbuena MD [Primary Care Provider] - 1 Week
[2018-08-27] MEDS: proMETHazine 25 MG Tablet PO (23:12)
[2018-08-27 23:13] VITALS: BP 119/72; PULSE 71; RESP 18; O2SAT 97
== END 2018-08-27 23:14 | disposition home or self-care (01) ==
PROVIDERS: Emergency Provider Emergency Medicine; Family Provider Family Medicine; PCP Family Medicine
DX: R11.2 Nausea with vomiting, unspecified (principal); E87.6 Hypokalemia; J44.9 Chronic obstructive pulmonary disease, unspecified; Z72.0 Tobacco use; R10.816 Epigastric abdominal tenderness
CPT/HCPCS: 80048; 85025; 96361; 96374; 96375; 99284; J7030; A4216; J2405

== ENCOUNTER 2020-10-31 20:11 | Emergency (ER) | payer SELFPAY ==
[2020-10-31 20:12] VITALS: BP 123/75; PULSE 71; RESP 18; TEMP 36.6; O2SAT 96; BMI 25.5
[2020-10-31 20:44] LABS: Bacteria 0 SEEN /hpf (None Seen)
[2020-10-31 20:46] LABS: Color, Urine Yellow (Yellow); Glucose, Dipstick Normal (Normal); Leukocyte Esterase-Dipstick 25 /ul (Negative); Nitrite-Dipstick Negative (Negative); Occult Blood-Urine 50 /ul (Negative); Protein-Dipstick 100 mg/dl (Negative); Specific Gravity, Urine 1.015 (1.002-1.030); Urine Bilirubin Dipstick Negative (Negative); Urine Clarity Sl. Cloudy (Clear); Urine Urobilinogen 1 mg/dl (Normal); Urine pH 6.5 (5.0 - 8.0)
[2020-10-31 20:53] LABS: Squamous Epithelial Cells - UA 5-10 SEEN /hpf (5-10)
[2020-10-31 20:54] LABS: Mucous, Urine RARE /hpf (<or=2+); Red Blood Cells-Urine 0-5 SEEN /hpf (0-5); White Blood Cells 0-5 SEEN /hpf (0-5)
[2020-10-31 20:56] LABS: Ketone-Dipstick 150 mg/dl (Negative)
--- NOTE | 2020-10-31 21:19 | ED.DCSUM_ITS ---
- ER Visit Summary Date of Service: 10/31/20 Chief Complaint: Vomiting and abdominal pain History of Present Illness: The patient is a [address] Harvinder Sierra. Reports she has a history of cyclic vomiting. She states that she began vomiting this morning and is unable to stop. She is vomited multiple times despite Zofran. She denies any blood in her emesis. She reports that after the vomiting began she developed a sharp diffuse abdominal pain that she believes is from the vomiting. Is 10 of 10 at worst 9-10 currently. She reports she had a small amount of diarrhea. No blood in her stools or black tarry stools. No dysuria or frequency. Patient reports that she has had these similar symptoms multiple times in the past. Patient denies sick contacts. Has not been camping out of the country. No possible bad food exposure. Does not drink well water. No recent antibiotic use. Physical Examination: Vitals: Stable. Afebrile. General: Well-nourished and well-developed. Head: Normocephalic atraumatic. Neck: Supple, no lymphadenopathy. No JVD. Nontender. Cardiovascular: Regular rate and rhythm. No murmurs. Respiratory: No respiratory distress. Clear to auscultation bilaterally. Abdominal: Soft, mild diffuse tenderness to palpation, nondistended, normal bowel sounds. No guarding, rebound, or peritoneal signs. Back: Nontender. Extremities: Nontender, no edema. Skin: Normal color, no rash. Neurologic: Alert and oriented ?3. Cranial nerves II through XII are intact. Normal strength and sensation. Psych: Normal affect. Test Results: UA shows blood, ketones, 5-10 epithelial cells. test is negative. Emergency Department Course and Treatment: Patient had an IV placed. Cyclic vomiting pathway was used. She was given Benadryl, Thorazine, Ativan, Zofran, Pepcid, and Toradol IV. She is resting more comfortably. Treatment Plan: Patient has Zofran at home already. She will have Thorazine added to this regimen. Patient will be discharged with instructions to follow- up with her primary care physician in 1 to 2 days if not improving. Return to the emergency department for any worsening symptoms. Disposition: To home in improved and stable condition. Impression: 1. Cyclic vomiting. This note was generated with Dragon dictation software. It may contain incorrect words, spelling, and punctuation that were not noted in review of the chart prior to signing ED Disposition - Plan for ED Patient: Disposition: Home or Assisted Living Instructions: ED Vomiting (Adult) Prescriptions: Chlorpromazine HCl 10 mg PO TID PRN #10 tablet PRN Reason: Nausea Prescription Printed Referrals: Bernard Balbuena MD [Primary Care Provider] - 1-2 Days if not improving
[2020-10-31] MEDS: 0.9% Normal Saline 1,000 ML 1000 ML IV (21:50)
[2020-10-31] MEDS: Famotidine 200 MG/20 ML MDV 20 MG in 0.9% Normal Saline (Pres. free 8 ML 300 MG IV (21:51)
[2020-10-31] MEDS: LORazepam 2 MG/ML Syringe 0.5 MG IV (21:51)
[2020-10-31] MEDS: Ondansetron 4 MG/2 ML Vial IV (21:51)
[2020-10-31 22:31] LABS: Internal QC Validated? YES +Cl - CLEAR BKGD; Pregnancy, Serum, hCG Quali. NEGATIVE Negative
[2020-10-31 23:00] VITALS: BP 96/68; PULSE 78; RESP 16; O2SAT 95
== END 2020-10-31 23:02 | disposition home or self-care (01) ==
LOC: ED 21:47
PROVIDERS: Emergency Provider Emergency Medicine; PCP Family Medicine
DX: R11.10 Vomiting, unspecified (principal); R10.84 Generalized abdominal pain; F17.200 Nicotine dependence, unspecified, uncomplicated
CPT/HCPCS: 81001; 84703; 96361; 96374; 96375; 99282; J7030; A4216; J2405; J3490

== ENCOUNTER 2020-12-11 20:59 | Emergency (ER) | payer SELFPAY ==
[2020-12-11 21:00] VITALS: BP 130/79; PULSE 63; RESP 20; TEMP 36; O2SAT 97; BMI 24.7
--- NOTE | 2020-12-11 21:21 | EDS_ITS ---
HPI <Dr. Wu Dhaliwal DO - Last Filed: 12/11/20 23:48> History of Present Illness Chief Complaint: Nausea/Vomiting/Diarrhea Narrative Narrative: 35-year-old female presents with vomiting. States that she has cyclic vomiting syndrome and this is not abnormal for her. States that she has had approximately 15 episodes of vomiting for the past 12 hours. Describes it is bilious in nature. States this is typical of her previous exacerbations. Patient does smoke marijuana. States she has burning abdominal pain. Denies any shortness of breath, chest pain, diaphoresis. PFSH <Dr. Wu Dhaliwal DO - Last Filed: 12/11/20 23:48> [facility], [facility] Medical History (Updated 12/12/20 @ 00:[address] Onesimo Hylton DO) COPD (chronic obstructive pulmonary disease) Smoker Substance abuse Home Medications albuterol sulfate 2.5 mg INHALATION Q4H PRN PRN #25 vial 07/30/18 [Rx Last Taken Unknown] Allergy/AdvReac Type Severity Reaction Status Date / Time FLEA COLLARS Allergy Hives Uncoded 12/11/20 20:59 Surgical History (Updated 12/11/20 @ 21:47 by Garret Morataya) History of cholecystectomy Social History Smoking Status: Heavy Smoker (>10/day) ROS <Dr. Wu Dhaliwal DO - Last Filed: 12/11/20 23:48> ROS ED Constitutional Constitutional ED: Denies chills, fever(s) or sweats Eyes Eyes: Denies blurry vision, change in vision or diplopia ENT ENT ED: Denies rhinorrhea or sore throat Cardiovascular Cardiovascular: Denies chest pain, orthopnea, palpitations or racing heartbeat Respiratory/Chest Respiratory/Chest: Denies cough, dyspnea, dyspnea on exertion, orthopnea or sputum Gastrointestinal Gastrointestinal: Reports nausea and vomiting; Denies abdominal pain, constipation, diarrhea or melena Genitourinary Genitourinary ED: Denies dysuria, hematuria or urinary frequency Musculoskeletal Musculoskeletal: Denies arthralgias, myalgias or neck pain Integumentary Denies rash Neurologic Neurologic: Denies headache(s), paresthesias or weakness Psychiatric Psychiatric: Denies anxiety or depression Hematologic/Lymphatic Hematologic/Lymphatic: Denies easy bleeding or easy bruising Allergic/Immunologic Allergic/Immunologic ED: Denies mouth swelling or tongue swelling EXAM <Dr. Wu Dhaliwal, DO - Last Filed: 12/11/20 23:48> Physical Exam Const Vital Signs: 12/11/20 21:00 12/11/20 21:48 12/12/20 00:06 Temperature 96.8 F L Temperature Source Temporal Pulse Rate 63 60 75 Respiratory Rate 20 H 15 14 Blood Pressure 130/79 H 105/62 117/69 Blood Pressure Mean 96 76 85 Pulse Ox 97 98 98 Oxygen Delivery Method Room Air Room Air Room Air Positive well nourished and well developed General Appearance ED: well developed HEENT Reports TM's clear and moist mucous membranes normocephalic and atraumatic Tympanic Membrane ED: Yes TM's clear Eyes PERRL and EOMs intact bilaterally Neck no lymphadenopathy, supple and no JVD Chest Wall inspection of chest normal Resp normal respiratory effort and clear to auscultation bilaterally Cardio regular rate, S1 normal heart sound, S2 normal heart sound and no murmurs Peripheral Pulses: pulses 2+ throughout GI soft to palpation, non-tender and non-distended Back/Spine no CVA tenderness and no thoracic nor lumbar tenderness Extremity normal to inspection General Extremety ED: Negative for edema or tenderness General Extremity: Negative for edema Neuro oriented x3, CN's II-XII intact bilaterally and no sensory deficits noted Sensorium / Orientation: alert Motor Exam: strength 5/5 throughout Psych mental status grossly normal Skin no rashes or lesions noted <Dr. Onesimo Hylton, DO - Last Filed: 12/12/20 00:50> Physical Exam Const Vital Signs: 12/11/20 21:00 12/11/20 21:48 12/12/20 00:06 Temperature 96.8 F L Temperature Source Temporal Pulse Rate 63 60 75 Respiratory Rate 20 H 15 14 Blood Pressure 130/79 H 105/62 117/69 Blood Pressure Mean 96 76 85 Pulse Ox 97 98 98 Oxygen Delivery Method Room Air Room Air Room Air MDM <Dr. Wu Dhaliwal, DO - Last Filed: 12/11/20 23:48> MDM MDM Narrative Medical decision making narrative: Patient vomiting upon arrival. Was given Ativan, Pepcid, Zofran. Patient also given 1 L of normal saline. On reevaluation at 2230 patient continued to vomit and was given 2 mg of IV Haldol. On reevaluation at 2320 patient continues to vomit and was given Thorazine and Benadryl per protocol. Continued hydration. Patient continues to have a benign abdominal exam. Patient will be signed out to oncoming provider pending treatment for cyclic vomiting syndrome. Stable at time of handoff. Discharge Plan Triage Chief Complaint: Nausea/Vomiting/Diarrhea ED Provider: Onesimo Hylton Dx/Rx/DC Orders Clinical Impression: Cyclical vomiting Instructions: ED Vomiting (Adult) Prescriptions: No Action albuterol sulfate 2.5 MG/3 ML solution for nebulization 2.5 mg Inhalation Q4H PRN PRN (Reason: Wheezing) Qty: 25 RF: 0 Primary Care Provider: Bernard Balbuena Referrals: Bernard Balbuena MD [Primary Care Provider] - 3-5 Days Disposition Disposition: Home, self care
[2020-12-11] MEDS: Ondansetron 4 MG/2 ML Vial IV (21:40)
[2020-12-11] MEDS: Famotidine 200 MG/20 ML MDV 20 MG in 0.9% Normal Saline (Pres. free 8 ML 300 MG IV (21:40)
[2020-12-11] MEDS: 0.9% Normal Saline 1,000 ML 999 ML IV (21:40)
[2020-12-11] MEDS: LORazepam 2 MG/ML Syringe 0.5 MG IV (21:40)
[2020-12-11 21:48] VITALS: BP 105/62; PULSE 60; RESP 15; O2SAT 98
[2020-12-11] MEDS: Haloperidol Lactate 5 MG/ML Vial 2 MG IV (22:51)
[2020-12-12 00:06] VITALS: BP 117/69; PULSE 75; RESP 14; O2SAT 98
[2020-12-12 00:54] VITALS: BP 120/73; PULSE 75; RESP 12; O2SAT 93
== END 2020-12-12 00:57 | disposition home or self-care (01) ==
PROVIDERS: Emergency Provider Emergency Medicine; PCP Family Medicine
DX: R11.15 Cyclical vomiting syndrome unrelated to migraine (principal); R19.7 Diarrhea, unspecified; R10.9 Unspecified abdominal pain; F17.200 Nicotine dependence, unspecified, uncomplicated; J44.9 Chronic obstructive pulmonary disease, unspecified; Z79.51 Long term (current) use of inhaled steroids
CPT/HCPCS: 96361; 96365; 96375; 99284; J7030; J2405; J3490

== ENCOUNTER 2020-12-13 11:25 | Emergency (ER) | payer SELFPAY ==
[2020-12-13 11:26] VITALS: BP 137/95; PULSE 69; RESP 15; TEMP 36.2; O2SAT 98; BMI 24.7
--- NOTE | 2020-12-13 11:46 | ED.VIS.GI ---
HPI HPI - GI History of Present Illness Chief Complaint: Nausea/Vomiting Detail of Chief Complaint: Nausea, vomiting and diarrhea Informant: patient Abdominal Pain/Flank Pain Onset: Days (Onset Saturday) Context: Sudden Onset Timing: Continuous Quality: Cramping Location: Diffuse Current Severity: Mild Maximum Severity: Severe Worsened by: - (Vomiting or diarrhea) Relieved by: Nothing Nausea/Vomiting/Emesis GI Symptom: Positive for Vomiting Onset: Hours Severity: Severe Diarrhea/Melena/Hematochezia GI Symptom: Positive for Diarrhea Onset: Days (Saturday) Stool Quality: Positive for Watery Severity: Severe Associated Symptoms Associated Symptoms: Positive for - (Decreased urine output); Negative for Dysuria, Frequency and Hematuria Narrative Narrative: Patient is a 35-year-old woman with history of asthma and cyclic vomiting who presents with crampy abdominal pain that started Saturday associated with vomiting and diarrhea. She has had numerous episodes of vomiting and diarrhea per day. She denies blood in emesis or blood in stool. Denies maroon or black-colored stool. She has had no ill contacts. She denies fever or chills. She does report thirst, dry mouth and lightheadedness with standing. She denies any other symptoms. She does admit to daily marijuana use. She is also a smoker. Prior similar symptoms: No Recent Illness/Hospitalization: No PFSH PFSH Medical History COPD (chronic obstructive pulmonary disease) Smoker Substance abuse Home Medications albuterol sulfate 2.5 mg INHALATION Q4H PRN PRN #25 vial 07/30/18 [Rx Last Taken Unknown] dicyclomine 20 mg PO TIDAC #20 capsule 12/13/20 [Rx Last Taken Unknown] loperamide [Imodium A-D] 2 mg PO Q4H PRN #10 cap 12/13/20 [Rx Last Taken Unknown] ondansetron 4 mg PO Q8H PRN PRN #10 tab 12/13/20 [Rx Last Taken Unknown] Allergy/AdvReac Type Severity Reaction Status Date / Time FLEA COLLARS Allergy Hives Uncoded 12/13/20 11:27 Surgical History History of cholecystectomy Social History (Updated 05/11/21 @ 11:[address] Franklin Silva MD) Smoking Status: Heavy Smoker (>10/day) alcohol intake: current alcohol intake frequency: holidays/special occasions only substance use type: marijuana ROS ROS ED Constitutional Constitutional ED: Denies chills, fever(s), subjective or sweats ENT ENT ED: Denies ear pain, rhinorrhea or sore throat Cardiovascular Cardiovascular: Denies chest pain or palpitations Respiratory/Chest Respiratory/Chest: Denies cough, dyspnea or dyspnea on exertion Gastrointestinal Gastrointestinal: Reports abdominal pain, diarrhea, nausea and vomiting; Denies melena Genitourinary Genitourinary ED: Denies dysuria, hematuria or urinary frequency Musculoskeletal Musculoskeletal: Denies arthralgias, myalgias or neck pain Integumentary Denies Abrasions or rash Neurologic Neurologic: Reports weakness; Denies headache(s) or paresthesias Endocrine Endocrinology: Denies polydipsia, polyphagia or polyuria Hematologic/Lymphatic Hematologic/Lymphatic: Denies easy bruising EXAM Physical Exam Const Vital Signs: 12/13/20 11:26 Temperature 97.2 F L Temperature Source Temporal Pulse Rate 69 Respiratory Rate 15 Blood Pressure 137/95 H Blood Pressure Mean 109 Pulse Ox 98 Oxygen Delivery Method Room Air Positive well nourished and well developed General Appearance ED: well developed and other Patient does not appear well and is actively vomiting. HEENT Reports TM's clear and dry mucous membranes normocephalic Tympanic Membrane ED: Yes TM's clear Mouth ED: Yes dry mucous membranes Mouth: dry mucous membranes Eyes PERRL and EOMs intact bilaterally General Eye ED: Negative for pale conjunctiva or scleral icterus Neck no lymphadenopathy, supple and no JVD General: Negative for tenderness Resp normal respiratory effort and clear to auscultation bilaterally Cardio regular rate, regular rhythm, S1 normal heart sound, S2 normal heart sound and no murmurs GI non-distended and no masses Auscultation: hyperactive bowel sounds Palpation: soft and tender other (Diffuse tenderness); Negative for guarding, rigid, hepatomegaly, splenomegaly or rebound tenderness present Back/Spine no CVA tenderness Lumbar Spine / Lower Back: Negative for lumbar spinal tenderness Extremity full ROM General Extremety ED: Negative for edema or tenderness General Extremity: Negative for edema Neuro CN's II-XII intact bilaterally and no sensory deficits noted Sensorium / Orientation: alert, oriented to person, oriented to place and oriented to time Motor Exam: strength 5/5 throughout Psych mental status grossly normal and thought process normal Skin no wounds Lesions: no lesions Rashes: no rashes MDM MDM MDM Narrative Medical decision making narrative: Patient presents with abdominal pain with nausea, vomiting diarrhea consistent with viral gastroenteritis. Will obtain basic metabolic panel to assess electrolytes and specifically potassium as well as renal function since this has been going on for greater than 48 hours. Clinically she appears dehydrated and will treat with 1 L of normal saline wide open. She also was treated with Zofran and will administer Imodium once the vomiting stops for her diarrhea. Lab Data Labs: Laboratory Results - last 24 hr 12/13/20 12:00 Sodium 139 Potassium 3.0 L Chloride 103 Carbon Dioxide 27.0 Anion Gap 9 BUN 5 L Creatinine 0.80 Estim Creat Clear Calc 97.13 Est GFR (MDRD) Af Amer 103 Est GFR (MDRD) Non-Af 85 BUN/Creatinine Ratio 6.2 L Glucose 120 H Calcium 8.9 Patient received 40 mEq potassium p.o. She has tolerated p.o. challenge. She has had slight vomiting since arrival. She had no diarrhea. Plan is to discharge to home with prescription for Zofran, Imodium and Bentyl. The hypokalemia will correct once the diarrhea stops. Discharge Plan Triage Chief Complaint: Nausea/Vomiting ED Provider: Franklin Sivla Dx/Rx/DC Orders Clinical Impression: Abdominal pain, vomiting, and diarrhea, Dehydration, moderate, Acute hypokalemia Instructions: ED Dehydration (Adult), ED Hypokalemia, ED Vomiting and Diarrhea ... Prescriptions: New ondansetron [ondansetron] 4 MG tablet 4 mg PO Q8H PRN PRN (Reason: Nausea) Qty: 10 RF: 0 dicyclomine 10 MG capsule 20 mg PO TIDAC Qty: 20 RF: 0 loperamide [Imodium A-D] 2 mg capsule 2 mg PO Q4H PRN (Reason: loose stool) Qty: 10 RF: 0 No Action albuterol sulfate 2.5 MG/3 ML solution for nebulization 2.5 mg Inhalation Q4H PRN PRN (Reason: Wheezing) Qty: 25 RF: 0 Primary Care Provider: Bernard Balbuena Referrals: Bernard Balbuena MD [Primary Care Provider] - 3-5 Days if not improving Disposition Disposition: Home, self care
[2020-12-13] MEDS: 0.9% Normal Saline 1,000 ML 1000 ML IV (11:59)
[2020-12-13] MEDS: Ondansetron 4 MG/2 ML Vial IV (11:59)
[2020-12-13 12:20] LABS: Anion Gap 9 (5-15); BUN 5 mg/dL (7-18); BUN/Creat Ratio 6.2 RATIO (10-20); Calcium,Total 8.9 mg/dL (8.5-10.1); Chloride 103 mmol/L (98-107); EST Glomerular Filtration Rate 85 mL/min (>60); Est Glom Filt Rate - Afr Amer 103 mL/min (>60); Estimated Creatinine Clearance 97.13 ml/min; Glucose 120 mg/dL (74-106); Sodium Level 139 mmol/L (136-145)
[2020-12-13] MEDS: Metoclopramide 10 MG/2 ML Vial 5 MG IV (13:21)
[2020-12-13] MEDS: Potassium Chloride Oral Soln 20 MEQ/15 ML UDC 40 MEQ PO (14:48)
[2020-12-13] MEDS: Loperamide 2 MG Capsule 4 MG PO (15:09)
[2020-12-13 15:25] VITALS: RESP 16
== END 2020-12-13 15:53 | disposition home or self-care (01) ==
PROVIDERS: Emergency Provider Emergency Medicine; PCP Family Medicine
DX: R10.9 Unspecified abdominal pain (principal); R11.2 Nausea with vomiting, unspecified; R19.7 Diarrhea, unspecified; E86.0 Dehydration; E87.6 Hypokalemia; F17.200 Nicotine dependence, unspecified, uncomplicated
CPT/HCPCS: 80048; 96361; 96374; 96375; 99283; J7030; A4216; J2405

== ENCOUNTER 2020-12-26 18:25 | Emergency (ER) | payer SELFPAY ==
[2020-12-26 18:26] VITALS: BP 146/84; PULSE 82; RESP 16; TEMP 36.6; O2SAT 96; BMI 24.3
[2020-12-26] MEDS: LORazepam 2 MG/ML Syringe 0.5 MG IV (19:21)
[2020-12-26] MEDS: Haloperidol Lactate 5 MG/ML Vial 2 MG IV (19:21)
[2020-12-26] MEDS: Famotidine 200 MG/20 ML MDV 20 MG in 0.9% Normal Saline (Pres. free 8 ML 300 MG IV (19:28)
[2020-12-26 19:56] LABS: Absolute Lymphocyte Count 2.56 X10^3/uL (0.83-4.51); Absolute Neutrophil Count 11.5 X10^3/uL (2.0-7.7); Basophil# 0.03 X10^3/uL; Basophil% 0.2 % (0-1); Eosinophil# 0.03 X10^3/uL; Eosinophils% 0.2 % (0-5); Hematocrit 48.7 % (37-47); Hemoglobin 16.7 g/dL (12.0-15.0); Lymphocyte # 2.56 X10^3/ul (0.83-4.51); Lymphocyte % 17.5 % (19-41); Mean Corp Hgb Conc 34.3 g/dL (32-36); Mean Corpuscular Hgb 32.3 pg (27.0-32.0); Mean Corpuscular Volume 94.2 fL (81-99); Mean Platelet Vol. 8.5 fl (6.2-12.0); Monocyte# 0.51 X10^3/uL; Monocyte% 3.5 % (0-10); NRBC Flagged by Analyzer 0 % (0-5); Neutrophil # 11.47 X10^3/uL (2.7-7.7); Neutrophil % 78.3 % (47-70); Platelet Count 398 K/mm3 (150-450); RBC Distribution Width CV 13.2 % (11.6-14.6); RBC Distribution Width SD 46.2 fl (35.1-43.9); Red Blood Count 5.17 M/mm3 (4.2-5.4); White Blood Count 14.7 K/mm3 (4.4-11.0)
[2020-12-26 20:07] LABS: AST(SGOT) 17 U/L (15-37); Alanine Aminotransfer ALT/SGPT 22 U/L (13-56); Albumin, Serum 3.8 g/dL (3.2-5.0); Alkaline Phosphatase 82 U/L (45-117); Anion Gap 9 (5-15); BUN 6 mg/dL (7-18); Calcium,Total 9.4 mg/dL (8.5-10.1); Chloride 104 mmol/L (98-107); Creatinine, Serum 0.86 mg/dL (0.55-1.02); EST Glomerular Filtration Rate 79 mL/min (>60); Est Glom Filt Rate - Afr Amer 95 mL/min (>60); Estimated Creatinine Clearance 90.35 ml/min; Globulin 3.9 g/dL (2.2-4.2); Glucose 118 mg/dL (74-106); Lipase 57 U/L (73-393); Potassium 3.9 mmol/L (3.5-5.1); Protein, Total 7.7 g/dL (6.4-8.2); Sodium Level 136 mmol/L (136-145)
--- NOTE | 2020-12-26 20:23 | EX.ED.DYSGE1 ---
HPI History of Present Illness Chief Complaint: Nausea/Vomiting Narrative Narrative: Patient has a history of cyclical vomiting syndrome. She is presenting with similar symptoms. She has nausea vomiting and chills which is consistent with her prior cyclical vomiting syndrome. She has no fever or chills she has some mild epigastric pain. No cough or congestion no chest pain or shortness of breath. PFSH PFSH Medical History COPD (chronic obstructive pulmonary disease) Smoker Substance abuse Home Medications albuterol sulfate 2.5 mg INHALATION Q4H PRN PRN #25 vial 07/30/18 [Rx Last Taken Unknown] ondansetron HCl [Zofran] 4 mg PO Q8H #7 tab 12/26/20 [Rx Last Taken Unknown] Allergy/AdvReac Type Severity Reaction Status Date / Time FLEA COLLARS Allergy Hives Uncoded 12/26/20 18:28 Surgical History History of cholecystectomy Social History (Updated 12/13/20 @ 11:[address] Franklin Silva MD) Smoking Status: Heavy Smoker (>10/day) alcohol intake: current alcohol intake frequency: holidays/special occasions only substance use type: marijuana ROS ROS ED ROS Narrative Past medical history: Reviewed Medications: Reviewed Social history: Noncontributory Review of systems: All systems negative except as indicated General: No fever Eyes: No visual changes ENT: No upper airway congestion, normal voice Neck: No neck pain Cardiovascular: No chest pain Respiratory: No shortness of breath or cough Gastrointestinal: Nausea vomiting and epigastric pain as in HPI Genitourinary: No dysuria Musculoskeletal: Denies myalgias no difficulty with ambulation Skin: No rash Neurological: No memory loss, confusion or any focal weakness Psych: No recent behavioral changes Hematologic: No easy bleeding or easy bruising EXAM Physical Exam Narrative Exam Narrative: Physical exam General: Patient does appear in some distress. Head: Normocephalic, Atraumatic Eyes: Conjunctiva not pale ENT: Moist mucous membranes Neck: Supple, Nontender, No lymphadenopathy Cardiovascular: Regular rate, Regular rhythm Respiratory: No distress, CTA bilaterally Abdomen: Soft, some mild epigastric tenderness no guarding or rebound negative [place]'s. No lower abdominal pain. Back: Nontender, Normal Inspection. Negative for: CVA tenderness Extremities: Nontender, No edema Skin: Normal color, No rash Neurological: Alert, Normal Strength, Normal Sensation Psychological: Normal affect Const Vital Signs: 12/26/20 18:26 12/26/20 22:13 Temperature 97.8 F Temperature Source Temporal Pulse Rate 82 72 Respiratory Rate 16 16 Blood Pressure 146/84 H 133/80 H Blood Pressure Mean 104 97 Pulse Ox 96 96 Oxygen Delivery Method Room Air Room Air MDM MDM MDM Narrative Medical decision making narrative: Patient was treated according to the cyclical vomiting order set, she significantly improved after the second round. She will be discharged in stable condition. Lab Data Labs: Laboratory Results - last 24 hr 12/26/20 12/26/20 19:24 19:24 WBC 14.7 H RBC 5.17 Hgb 16.7 H Hct 48.7 H MCV 94.2 MCH 32.3 H MCHC 34.3 RDW Std Deviation 46.2 H RDW Coeff of Brigitte 13.2 Plt Count 398 MPV 8.5 Immature Gran % (Auto) 0.300 Neut % (Auto) 78.3 H Lymph % (Auto) 17.5 L [place] % (Auto) 3.5 Eos % (Auto) 0.2 Baso % (Auto) 0.2 Absolute Neuts (auto) 11.5 H Absolute Lymphs (auto) 2.56 Nucleated RBC % 0 Sodium 136 Potassium 3.9 Chloride 104 Carbon Dioxide 23.0 Anion Gap 9 BUN 6 L Creatinine 0.86 Estim Creat Clear Calc 90.35 Est GFR (MDRD) Af Amer 95 Est GFR (MDRD) Non-Af 79 BUN/Creatinine Ratio 7.0 L Glucose 118 H Calcium 9.4 Total Bilirubin 0.60 AST 17 ALT 22 Alkaline Phosphatase 82 Total Protein 7.7 Albumin 3.8 Globulin 3.9 Albumin/Globulin Ratio 1.0 Lipase 57 L Discharge Plan Triage Chief Complaint: Nausea/Vomiting ED Provider: Jamari Hansen Dx/Rx/DC Orders Clinical Impression: Cyclical vomiting Instructions: ED Diet for Vomiting or Diarrhea Adult, ED Vomiting (Adult) Prescriptions: New ondansetron HCl [Zofran] 4 mg tablet 4 mg PO Q8H Qty: 7 RF: 0 No Action albuterol sulfate 2.5 MG/3 ML solution for nebulization 2.5 mg Inhalation Q4H PRN PRN (Reason: Wheezing) Qty: 25 RF: 0 Primary Care Provider: Bernard Balbuena Referrals: Bernard Balbuena MD [Primary Care Provider] - 3-5 Days
[2020-12-26 22:13] VITALS: BP 133/80; PULSE 72; RESP 16; O2SAT 96
== END 2020-12-26 22:44 | disposition home or self-care (01) ==
LOC: ED 18:54
PROVIDERS: Emergency Provider Emergency Medicine; PCP Family Medicine
DX: R11.2 Nausea with vomiting, unspecified (principal); J44.9 Chronic obstructive pulmonary disease, unspecified; F17.200 Nicotine dependence, unspecified, uncomplicated; Z79.899 Other long term (current) drug therapy
CPT/HCPCS: 80053; 83690; 85025; 96365; 96375; 99283; J7030; J3490

== ENCOUNTER 2021-01-28 16:15 | Emergency (ER) | payer SELFPAY ==
[2021-01-28 16:16] VITALS: BP 135/85; PULSE 65; RESP 18; TEMP 35.5; O2SAT 97; BMI 25.0
--- NOTE | 2021-01-28 16:56 | EDS_ITS ---
HPI History of Present Illness Chief Complaint: General Illness Informant: patient Narrative Narrative: Patient is a 35-year-old female with a history of cannabis abuse with cyclical vomiting who presents to the emergency department for nausea/vomiting and chills. Her symptoms started around 7 AM this morning. She has vomited and dry heaves too numerous times to count. She is having diffuse abdominal pain. Has had some diarrhea. She denies any urinary symptoms. No fevers but she has had chills. No known aggravating or relieving factors. No chest pain or shortness of breath. She has been seen before in the past for this. She denies any cough, cold-like symptoms. [facility] Medical History (Updated 01/28/21 @ 20:[address] Brock Disla DO) COPD (chronic obstructive pulmonary disease) Smoker Substance abuse Home Medications albuterol sulfate 2.5 mg INHALATION Q4H PRN PRN #25 vial 07/30/18 [Rx Last Taken Unknown] ondansetron HCl [Zofran] 4 mg PO Q8H #7 tab 12/26/20 [Rx Last Taken Unknown] Allergy/AdvReac Type Severity Reaction Status Date / Time FLEA COLLARS Allergy Hives Uncoded 01/28/21 16:18 Surgical History (Updated 01/28/21 @ 17:17 by Garret Morataya) History of cholecystectomy History of tonsillectomy and adenoidectomy Social History Smoking Status: Heavy Smoker (>10/day) alcohol intake: current alcohol intake frequency: holidays/special occasions only substance use type: marijuana ROS ROS ED Constitutional Constitutional ED: Reports chills; Denies fever(s) Eyes Eyes: Denies change in vision ENT ENT ED: Denies epistaxis or rhinorrhea Cardiovascular Cardiovascular: Denies chest pain or palpitations Respiratory/Chest Respiratory/Chest: Denies cough, dyspnea or dyspnea on exertion Gastrointestinal Gastrointestinal: Reports abdominal pain, diarrhea, nausea and vomiting Genitourinary Genitourinary ED: Denies dysuria, hematuria or urinary frequency Musculoskeletal Musculoskeletal: Denies back pain or neck pain Integumentary Denies rash Neurologic Neurologic: Denies dizziness, headache(s) or weakness EXAM Physical Exam Const Vital Signs: 01/28/21 16:16 01/28/21 17:14 01/28/21 19:12 Temperature 96 F L Temperature Source Temporal Pulse Rate 65 61 60 Respiratory Rate 18 15 15 Respiratory Effort Normal Respiratory Pattern Normal Blood Pressure 135/85 H 127/77 H Blood Pressure Mean 101 93 Pulse Ox 97 97 98 Oxygen Delivery Method Room Air Room Air Room Air 01/28/21 20:46 Temperature Temperature Source Pulse Rate 78 Respiratory Rate 15 Respiratory Effort Respiratory Pattern Blood Pressure 115/74 Blood Pressure Mean Pulse Ox 94 Oxygen Delivery Method Positive well nourished and well developed Constitutional Narrative: Dry heaving throughout examination in HPI. General Appearance ED: well developed HEENT Reports normocephalic, head/scalp atraumatic and moist mucous membranes Eyes PERRL and EOMs intact bilaterally Neck supple Chest Wall inspection of chest normal Resp normal respiratory effort and clear to auscultation bilaterally Auscultation: Negative for rales, rhonchi or wheezes Cardio regular rate, regular rhythm and no murmurs GI normal to inspection, nondistended, normoactive bowel sounds Palpation: soft Back/Spine no CVA tenderness Extremity normal to inspection General Extremety ED: Negative for edema or tenderness General Extremity: Negative for edema Neuro CN's II-XII intact bilaterally and no sensory deficits noted Sensorium / Orientation: alert Motor Exam: strength 5/5 throughout Psych mental status grossly normal Skin no rashes or lesions noted MDM MDM MDM Narrative Medical decision making narrative: Patient presents to the emerge department for nausea/vomiting and chills. She is dry heaving. Upon arrival to the emerge department vital signs within normal limits. Will check basic lab work and treat symptomatically with a dose of Zofran and IV fluids. Patient states last time she used cannabis was 4 days ago. Patient's lab work showed a white blood cell count of 14.4 which is similar to her previous lab draw. She has mild elevation of her hemoglobin. No significant electrolyte abnormality. Her glucose is 126. Patient still had nausea and dry heaving after the Zofran so she was given a dose of Haldol. She was continued to have nausea vomiting so she was given a dose of Reglan with Benadryl. After this she was feeling much better and requesting to be discharged. Did drug and alcohol counselor on marijuana cessation. She is to otherwise follow-up with her PCP. Return precautions are reviewed with her. She understands and is agreeable this plan. Lab Data Labs: Laboratory Results - last 24 hr 01/28/21 01/28/21 01/28/21 17:20 17:20 17:20 WBC 14.4 H RBC 4.88 Hgb 15.9 H Hct 46.5 MCV 95.3 MCH 32.6 H MCHC 34.2 RDW Std Deviation 45.8 H RDW Coeff of Brigitte 12.9 Plt Count 358 MPV 8.6 Immature Gran % (Auto) 0.500 Neut % (Auto) 75.7 H Lymph % (Auto) 20.7 [place] % (Auto) 2.6 Eos % (Auto) 0.2 Baso % (Auto) 0.3 Absolute Neuts (auto) 10.9 H Absolute Lymphs (auto) 2.97 Nucleated RBC % 0 Sodium 140 Potassium 3.5 Chloride 107 Carbon Dioxide 24.0 Anion Gap 9 BUN 5 L Creatinine 0.75 Estim Creat Clear Calc 103.60 Est GFR (MDRD) Af Amer 111 Est GFR (MDRD) Non-Af 92 BUN/Creatinine Ratio 6.7 L Glucose 126 H Calcium 9.2 Total Bilirubin 0.50 AST 15 ALT 14 Alkaline Phosphatase 78 Total Protein 7.2 Albumin 3.7 Globulin 3.5 Albumin/Globulin Ratio 1.1 Lipase 34 L Serum , Qual NEGATIVE Discharge Plan Triage Chief Complaint: General Illness ED Provider: Brock Disla Dx/Rx/DC Orders Clinical Impression: Cyclical vomiting Instructions: ED Cyclic Vomiting Syndrome Prescriptions: No Action albuterol sulfate 2.5 MG/3 ML solution for nebulization 2.5 mg Inhalation Q4H PRN PRN (Reason: Wheezing) Qty: 25 RF: 0 ondansetron HCl [Zofran] 4 mg tablet 4 mg PO Q8H Qty: 7 RF: 0 Primary Care Provider: Bernard Balbuena Referrals: Bernard Balbuena MD [Primary Care Provider] - 2 Days Disposition Disposition: Home, Self Care Discharge Date/Time: 01/28/21 20:47
[2021-01-28 17:14] VITALS: BP 127/77; PULSE 61; RESP 15; O2SAT 97
[2021-01-28] MEDS: 0.9% Normal Saline 1,000 ML 1000 ML IV (17:18)
[2021-01-28] MEDS: Ondansetron 4 MG/2 ML Vial IV (17:18)
[2021-01-28 17:34] LABS: Absolute Lymphocyte Count 2.97 X10^3/uL (0.83-4.51); Absolute Neutrophil Count 10.9 X10^3/uL (2.0-7.7); Basophil# 0.04 X10^3/uL; Basophil% 0.3 % (0-1); Eosinophil# 0.03 X10^3/uL; Eosinophils% 0.2 % (0-5); Hematocrit 46.5 % (37-47); Hemoglobin 15.9 g/dL (12.0-15.0); Lymphocyte # 2.97 X10^3/ul (0.83-4.51); Lymphocyte % 20.7 % (19-41); Mean Corp Hgb Conc 34.2 g/dL (32-36); Mean Corpuscular Hgb 32.6 pg (27.0-32.0); Mean Corpuscular Volume 95.3 fL (81-99); Mean Platelet Vol. 8.6 fl (6.2-12.0); Monocyte# 0.38 X10^3/uL; Monocyte% 2.6 % (0-10); NRBC Flagged by Analyzer 0 % (0-5); Neutrophil # 10.86 X10^3/uL (2.7-7.7); Neutrophil % 75.7 % (47-70); Platelet Count 358 K/mm3 (150-450); RBC Distribution Width CV 12.9 % (11.6-14.6); RBC Distribution Width SD 45.8 fl (35.1-43.9); Red Blood Count 4.88 M/mm3 (4.2-5.4); White Blood Count 14.4 K/mm3 (4.4-11.0)
[2021-01-28 17:49] LABS: Internal QC Validated? YES +Cl - CLEAR BKGD
[2021-01-28 17:50] LABS: Pregnancy, Serum, hCG Quali. NEGATIVE Negative
[2021-01-28 17:55] LABS: ALB/GLOB Ratio 1.1 RATIO (0.9-2.4); AST(SGOT) 15 U/L (15-37); Alanine Aminotransfer ALT/SGPT 14 U/L (13-56); Albumin, Serum 3.7 g/dL (3.2-5.0); Alkaline Phosphatase 78 U/L (45-117); Anion Gap 9 (5-15); BUN 5 mg/dL (7-18); BUN/Creat Ratio 6.7 RATIO (10-20); Calcium,Total 9.2 mg/dL (8.5-10.1); Chloride 107 mmol/L (98-107); Creatinine, Serum 0.75 mg/dL (0.55-1.02); EST Glomerular Filtration Rate 92 mL/min (>60); Est Glom Filt Rate - Afr Amer 111 mL/min (>60); Globulin 3.5 g/dL (2.2-4.2); Glucose 126 mg/dL (74-106); Lipase 34 U/L (73-393); Potassium 3.5 mmol/L (3.5-5.1); Protein, Total 7.2 g/dL (6.4-8.2); Sodium Level 140 mmol/L (136-145)
[2021-01-28] MEDS: Haloperidol Lactate 5 MG/ML Vial IM (19:10)
[2021-01-28 19:12] VITALS: PULSE 60; RESP 15; O2SAT 98
--- NOTE | 2021-01-28 19:18 | ED.RN ---
Isolation precautions and sepsis evaluation discontinued per dr order. per pt has cyclic vomiting syndrome. nichole allison rn [id number]
[2021-01-28] MEDS: DiphenhydrAMINE 50 MG/ML Syringe 25 MG IV (19:58)
[2021-01-28] MEDS: Metoclopramide 10 MG/2 ML Vial 5 MG IV (19:58)
--- NOTE | 2021-01-28 19:58 | ED.RN ---
medication scanner not work in patient's room. scanner was reset without any change. medications hard charted. nichole allison rn [id number]
[2021-01-28 20:46] VITALS: BP 115/74; PULSE 78; RESP 15; O2SAT 94
== END 2021-01-28 20:47 | disposition home or self-care (01) ==
PROVIDERS: Emergency Provider Emergency Medicine; PCP Family Medicine
DX: R11.15 Cyclical vomiting syndrome unrelated to migraine (principal); J44.9 Chronic obstructive pulmonary disease, unspecified; F17.200 Nicotine dependence, unspecified, uncomplicated; Z79.899 Other long term (current) drug therapy
CPT/HCPCS: 80053; 83690; 84703; 85025; 96361; 96372; 96374; 96375; 99283; J7030; A4216; J2405

== ENCOUNTER 2021-06-24 12:32 | Emergency (ER) | payer SELFPAY ==
[2021-06-24 12:33] VITALS: BP 122/92; PULSE 87; RESP 18; TEMP 35.8; O2SAT 95; BMI 24.7
--- NOTE | 2021-06-24 13:04 | EDS_ITS ---
HPI History of Present Illness Chief Complaint: Nausea/Vomiting Informant: patient Narrative Narrative: 36-year-old female presenting with nausea and vomiting. Patient has history of cyclic vomiting syndrome. She states she has been vomiting for the past 4 days. Denies diarrhea. Complains of mild diffuse abdominal pain. She tried Phenergan and Zofran at home with little improvement. Prior similar symptoms: Yes Recent Illness/Hospitalization: No PFSH PFSH Medical History (Updated 06/24/21 @ 15:[address] Opal Nelson MD) COPD (chronic obstructive pulmonary disease) Smoker Substance abuse Home Medications albuterol sulfate 2.5 mg INHALATION Q4H PRN PRN #25 vial 07/30/18 [Rx Last Taken Unknown] albuterol sulfate [Ventolin HFA] 2 puff INHALATION Q6H PRN 06/24/21 [History Last Taken Unknown] Allergy/AdvReac Type Severity Reaction Status Date / Time FLEA COLLARS Allergy Hives Uncoded 06/24/21 12:35 Surgical History History of cholecystectomy History of salpingectomy History of tonsillectomy and adenoidectomy Social History Smoking Status: Heavy Smoker (>10/day) alcohol intake: current alcohol intake frequency: holidays/special occasions only substance use type: marijuana ROS ROS ED Constitutional Constitutional ED: Denies fever(s) Eyes Eyes: Denies change in vision ENT ENT ED: Denies rhinorrhea or sore throat Cardiovascular Cardiovascular: Denies chest pain or palpitations Respiratory/Chest Respiratory/Chest: Denies cough or dyspnea Gastrointestinal Gastrointestinal: Reports abdominal pain, nausea and vomiting; Denies diarrhea Genitourinary Genitourinary ED: Denies dysuria Musculoskeletal Musculoskeletal: Denies myalgias Integumentary Denies rash Neurologic Neurologic: Denies headache(s) Psychiatric Psychiatric: Denies suicidal thoughts EXAM Physical Exam Const Vital Signs: 06/24/21 12:33 Temperature 96.5 F L Temperature Source Temporal Pulse Rate 87 Respiratory Rate 18 Blood Pressure 122/92 H Blood Pressure Mean 102 Pulse Ox 95 Positive well nourished and well developed General Appearance ED: well developed HEENT Reports normocephalic and head/scalp atraumatic Eyes PERRL and EOMs intact bilaterally Neck supple General: Negative for tenderness Chest Wall inspection of chest normal Resp normal respiratory effort and clear to auscultation bilaterally Cardio regular rate and regular rhythm GI non-tender and non-distended Palpation: soft; Negative for guarding or rebound tenderness present no CVA tenderness Extremity normal to inspection Neuro oriented x3 Sensorium / Orientation: alert Psych mental status grossly normal MDM MDM MDM Narrative Medical decision making narrative: Patient was given IV fluids, Zofran. She continues to have nausea and was given Reglan with some improvement. CBC normal except for white count 15.0. Chemistries show potassium 2.7. She was given potassium oral replacement. Lipase is normal. hCG negative. Patient was given a GI cocktail with improvement of her symptoms. She is requesting discharge home. She will follow-up with GI. Advised return to ED for worsening complaints. Lab Data Attestation: I reviewed the patient's lab results. Labs: Laboratory Results - last 24 hr 06/24/21 06/24/21 06/24/21 13:18 13:18 13:18 WBC 15.0 H RBC 5.02 Hgb 16.9 H Hct 46.3 MCV 92.2 MCH 33.7 H MCHC 36.5 H RDW Std Deviation 43.0 RDW Coeff of Brigitte 12.5 Plt Count 328 MPV 8.5 Immature Gran % (Auto) 0.400 Neut % (Auto) 71.1 H Lymph % (Auto) 22.2 [place] % (Auto) 6.2 Eos % (Auto) 0.0 Baso % (Auto) 0.1 Absolute Neuts (auto) 10.7 H Absolute Lymphs (auto) 3.33 Nucleated RBC % 0 Sodium 130 L Potassium 2.7 L* Chloride 90 L Carbon Dioxide 31.0 Anion Gap 9 BUN 12 Creatinine 0.73 Estim Creat Clear Calc 105.41 Est GFR (MDRD) Af Amer 114 Est GFR (MDRD) Non-Af 94 BUN/Creatinine Ratio 16.3 Glucose 108 H Calcium 9.2 Total Bilirubin 1.10 H AST 15 ALT 24 Alkaline Phosphatase 70 Total Protein 7.7 Albumin 3.9 Globulin 3.8 Albumin/Globulin Ratio 1.0 Lipase 27 L Serum , Qual NEGATIVE Discharge Plan Triage Chief Complaint: Nausea/Vomiting ED Provider: Opal Nelson Dx/Rx/DC Orders Clinical Impression: Cyclical vomiting Instructions: ED Vomiting (Adult) Prescriptions: No Action albuterol sulfate 2.5 MG/3 ML solution for nebulization 2.5 mg Inhalation Q4H PRN PRN (Reason: Wheezing) Qty: 25 RF: 0 albuterol sulfate [Ventolin HFA] 90 mcg/actuation Hfa Aerosol Inhaler 2 puff INHALATION Q6H PRN (Reason: Wheezing) RF: 0 Primary Care Provider: Bernard Balbuena Referrals: Bernard Balbuena MD [Primary Care Provider] - Disposition Disposition: Home, Self Care
[2021-06-24] MEDS: Ondansetron 4 MG/2 ML Vial IV (13:17)
[2021-06-24] MEDS: 0.9% Normal Saline 1,000 ML 1000 ML IV (13:17)
[2021-06-24 13:29] LABS: Absolute Lymphocyte Count 3.33 X10^3/uL (0.83-4.51); Absolute Neutrophil Count 10.7 X10^3/uL (2.0-7.7); Basophil# 0.02 X10^3/uL; Basophil% 0.1 % (0-1); Hematocrit 46.3 % (37-47); Hemoglobin 16.9 g/dL (12.0-15.0); Lymphocyte # 3.33 X10^3/ul (0.83-4.51); Lymphocyte % 22.2 % (19-41); Mean Corp Hgb Conc 36.5 g/dL (32-36); Mean Corpuscular Hgb 33.7 pg (27.0-32.0); Mean Corpuscular Volume 92.2 fL (81-99); Mean Platelet Vol. 8.5 fl (6.2-12.0); Monocyte# 0.93 X10^3/uL; Monocyte% 6.2 % (0-10); NRBC Flagged by Analyzer 0 % (0-5); Neutrophil # 10.69 X10^3/uL (2.7-7.7); Neutrophil % 71.1 % (47-70); Platelet Count 328 K/mm3 (150-450); RBC Distribution Width CV 12.5 % (11.6-14.6); Red Blood Count 5.02 M/mm3 (4.2-5.4)
[2021-06-24 13:48] LABS: Internal QC Validated? YES +Cl - CLEAR BKGD; Pregnancy, Serum, hCG Quali. NEGATIVE Negative
[2021-06-24 14:03] LABS: AST(SGOT) 15 U/L (15-37); Alanine Aminotransfer ALT/SGPT 24 U/L (13-56); Albumin, Serum 3.9 g/dL (3.2-5.0); Alkaline Phosphatase 70 U/L (45-117); Anion Gap 9 (5-15); BUN 12 mg/dL (7-18); BUN/Creat Ratio 16.3 RATIO (10-20); Calcium,Total 9.2 mg/dL (8.5-10.1); Chloride 90 mmol/L (98-107); Creatinine, Serum 0.73 mg/dL (0.55-1.02); EST Glomerular Filtration Rate 94 mL/min (>60); Est Glom Filt Rate - Afr Amer 114 mL/min (>60); Estimated Creatinine Clearance 105.41 ml/min; Globulin 3.8 g/dL (2.2-4.2); Glucose 108 mg/dL (74-106); Lipase 27 U/L (73-393); Potassium 2.7 mmol/L (3.5-5.1); Protein, Total 7.7 g/dL (6.4-8.2); Sodium Level 130 mmol/L (136-145)
[2021-06-24] MEDS: Metoclopramide 10 MG/2 ML Vial IV (15:17)
[2021-06-24] MEDS: Potassium Chloride Oral Tablet 20 MEQ 40 MEQ PO (15:17)
[2021-06-24] MEDS: Mag Hydrox/Al Hydrox/Simeth 30 ML UDC PO (15:17)
[2021-06-24 16:19] VITALS: BP 120/86; RESP 16
== END 2021-06-24 16:20 | disposition home or self-care (01) ==
PROVIDERS: Emergency Provider Emergency Medicine; PCP Family Medicine
DX: R11.2 Nausea with vomiting, unspecified (principal); R10.84 Generalized abdominal pain; J44.9 Chronic obstructive pulmonary disease, unspecified; F17.200 Nicotine dependence, unspecified, uncomplicated; Z79.899 Other long term (current) drug therapy
CPT/HCPCS: 80053; 83690; 84703; 85025; 96361; 96374; 96375; 99284; J7030; A4216; J2405

== ENCOUNTER 2021-09-01 13:16 | Inpatient (IN) | payer SELFPAY ==
[2021-09-01 13:18] VITALS: BP 123/92; PULSE 110; RESP 14; TEMP 35.7; O2SAT 92; BMI 32.3
--- NOTE | 2021-09-01 15:19 | EDS_ITS ---
HPI HPI - GI History of Present Illness Chief Complaint: Abd Pain Informant: patient Narrative Narrative: Vomiting abdominal pain for 2 days. Dry heaving. No diarrhea. No hematemesis. Reports cyclic vomiting syndrome nondiabetic. Admits to marijuana use however stated last time was 5 days ago. Over last 2 days states hot shower does help however returns when she is out of the shower. Denies any allergies to any medications. Denies alcohol. Prior similar symptoms: Yes PFSH PFSH Medical History COPD (chronic obstructive pulmonary disease) Smoker Substance abuse Home Medications albuterol sulfate 2.5 mg INHALATION Q4H PRN PRN #25 vial 07/30/18 [Rx Last Taken 08/29/21] albuterol sulfate [Ventolin HFA] 2 puff INHALATION Q6H PRN 06/24/21 [History Last Taken Unknown] ondansetron HCl [Zofran] 8 mg PO Q12H PRN 09/01/21 [History Last Taken 08/30/21] Allergy/AdvReac Type Severity Reaction Status Date / Time FLEA COLLARS Allergy Hives Uncoded 09/01/21 13:17 Surgical History History of cholecystectomy History of salpingectomy History of tonsillectomy and adenoidectomy Social History Smoking Status: Heavy Smoker (>10/day) alcohol intake: current alcohol intake frequency: holidays/special occasions only substance use type: marijuana ROS ROS ED Constitutional Constitutional ED: Denies chills, fever(s) or sweats Eyes Eyes: Denies change in vision ENT ENT ED: Denies dysphagia or sore throat Cardiovascular Cardiovascular: Denies chest pain, leg edema, palpitations or racing heartbeat Respiratory/Chest Respiratory/Chest: Denies cough, dyspnea or dyspnea on exertion Gastrointestinal Gastrointestinal: Reports abdominal pain, nausea and vomiting; Denies diarrhea Genitourinary Genitourinary ED: Denies dysuria, hematuria or urinary frequency Musculoskeletal Musculoskeletal: Denies back pain, extremity pain or neck pain Integumentary Denies rash or wounds Neurologic Neurologic: Denies headache(s), paresthesias or weakness EXAM Physical Exam Const Vital Signs: 09/01/21 13:18 09/01/21 16:33 Temperature 96.3 F L Temperature Source Temporal Pulse Rate 110 H Respiratory Rate 14 Blood Pressure 123/92 H 118/105 H Blood Pressure Mean 102 109 Pulse Ox 92 Oxygen Delivery Method Room Air Positive well nourished and well developed General Appearance ED: well developed and NAD HEENT Reports dry mucous membranes normocephalic and atraumatic Mouth ED: Yes dry mucous membranes Mouth: dry mucous membranes Eyes PERRL, EOMs intact bilaterally and conjunctivae normal General Eye ED: Yes normal appearance of both eyes Neck no lymphadenopathy and supple General: Negative for tenderness Chest Wall Chest: Negative for tenderness Resp normal respiratory effort and normal air movement Effort and Inspection: symmetric chest movement; Negative for respiratory distress Cardio regular rhythm and no murmurs Rate: tachycardic Peripheral Pulses: pulses 2+ throughout GI normal to inspection, nondistended, normoactive bowel sounds GI Narrative: Mild generalized tenderness however no guarding or rebound. Negative [place]'s or McBurney's tenderness. Palpation: Negative for guarding or rebound tenderness present Back/Spine no CVA tenderness and no thoracic nor lumbar tenderness Extremity normal to inspection General Extremety ED: Negative for edema or tenderness General Extremity: Negative for edema Neuro oriented x3 and no sensory deficits noted Sensorium / Orientation: awake and alert Skin no rashes or lesions noted and no wounds MDM MDM MDM Narrative Medical decision making narrative: Patient history of marijuana vomiting dry heaving. Dry mucosal membranes. Given IV fluids Haldol and capsaicin cream with improvement of symptoms. I did check labs her white count was 17 likelly reactive from her emesis. Abdomen was soft on reevaluation. Creatinine 0.76 she had a sodium of 128 potassium 2.2. I did check a magnesium which was 2.8. She is able to take oral potassium 60 mEq. I checked an EKG notes a prolonged QT. She was placed on a monitor. Tox screen was positive for marijuana. Urine negative for infection. She denies cough symptoms. Due to hypokalemia with a prolonged QT, she will require admission. I spoke with Dr. Martini for admission to PCU. Patient updated and understands. Lab Data Attestation: I reviewed the patient's lab results. Labs: Laboratory Results - last 24 hr 09/01/21 09/01/21 09/01/21 15:25 15:25 15:25 WBC 17.4 H RBC 5.32 Hgb 17.4 H Hct 47.7 H MCV 89.7 MCH 32.7 H MCHC 36.5 H RDW Std Deviation 38.9 RDW Coeff of Brigitte 11.9 Plt Count 407 MPV 8.4 Immature Gran % (Auto) 0.300 Neut % (Auto) 68.1 Lymph % (Auto) 22.3 [place] % (Auto) 8.9 Eos % (Auto) 0.1 Baso % (Auto) 0.3 Absolute Neuts (auto) 11.9 H Absolute Lymphs (auto) 3.88 Nucleated RBC % 0 Differential Comment Diff Path Review May foll Platelet Estimate ADEQUATE RBC Morphology NORM C+C Sodium 128 L Potassium 2.2 L* Chloride 83 L Carbon Dioxide 35.0 H Anion Gap 10 BUN 16 Creatinine 0.76 Estim Creat Clear Calc 101.25 Est GFR (MDRD) Af Amer 109 Est GFR (MDRD) Non-Af 90 BUN/Creatinine Ratio 21.0 H Glucose 112 H Calcium 9.1 Magnesium 2.8 H Total Bilirubin 1.00 AST 18 ALT 28 Alkaline Phosphatase 79 Total Protein 8.0 Albumin 3.8 Globulin 4.2 Albumin/Globulin Ratio 0.9 Lipase 29 L Urine Color Urine Clarity Urine pH Ur Specific [place] Urine Protein Urine Glucose (UA) Urine Ketones Urine Occult Blood Urine Nitrite Urine Bilirubin Urine Urobilinogen Ur Leukocyte Esterase Urine RBC Urine WBC Ur Squamous Epith Cells Urine Bacteria Urine Mucus Urine Test Urine Opiates Screen Urine Methadone Screen Ur Barbiturates Screen Ur Phencyclidine Scrn Ur Amphetamines Screen U Methamphetamin-MDMA U Benzodiazepines Scrn Urine Cocaine Screen U Cannabinoids Screen Ur Drug Screen Comment 09/01/21 09/01/21 16:25 16:25 WBC RBC Hgb Hct MCV MCH MCHC RDW Std Deviation RDW Coeff of Brigitte Plt Count MPV Immature Gran % (Auto) Neut % (Auto) Lymph % (Auto) [place] % (Auto) Eos % (Auto) Baso % (Auto) Absolute Neuts (auto) Absolute Lymphs (auto) Nucleated RBC % Differential Comment Diff Path Review Platelet Estimate RBC Morphology Sodium Potassium Chloride Carbon Dioxide Anion Gap BUN Creatinine Estim Creat Clear Calc Est GFR (MDRD) Af Amer Est GFR (MDRD) Non-Af BUN/Creatinine Ratio Glucose Calcium Magnesium Total Bilirubin AST ALT Alkaline Phosphatase Total Protein Albumin Globulin Albumin/Globulin Ratio Lipase Urine Color Yellow Urine Clarity Clear Urine pH 6.0 Ur Specific [place] 1.015 Urine Protein 30 H Urine Glucose (UA) Normal Urine Ketones 50 H Urine Occult Blood 10 H Urine Nitrite Negative Urine Bilirubin Negative Urine Urobilinogen Normal Ur Leukocyte Esterase Negative Urine RBC 0 SEEN Urine WBC 0-5 SEEN Ur Squamous Epith Cells 10-25 SEEN Urine Bacteria 0 SEEN Urine Mucus 0 SEEN Urine Test Negative Urine Opiates Screen NEGATIVE Urine Methadone Screen NEGATIVE Ur Barbiturates Screen NEGATIVE Ur Phencyclidine Scrn NEGATIVE Ur Amphetamines Screen NEGATIVE U Methamphetamin-MDMA NEGATIVE U Benzodiazepines Scrn NEGATIVE Urine Cocaine Screen NEGATIVE U Cannabinoids Screen POSITIVE H Ur Drug Screen Comment Discharge Plan Dx/Rx/DC Orders Clinical Impression: Hypokalemia, Prolonged Q-T interval on ECG, Cannabis hyperemesis syndrome concurrent with and due to cannabis abuse, Acute hyponatremia Disposition Disposition: Acute Care Hospital [facility]
[2021-09-01] MEDS: Capsaicin 0.025% 1 APPLIC Tube TOPICAL (15:27)
[2021-09-01] MEDS: 0.9% Normal Saline 1,000 ML 1000 ML IV (15:27)
[2021-09-01] MEDS: Haloperidol Lactate 5 MG/ML Vial IV (15:27)
[2021-09-01 15:42] LABS: Absolute Lymphocyte Count 3.88 X10^3/uL (0.83-4.51); Absolute Neutrophil Count 11.9 X10^3/uL (2.0-7.7); Basophil# 0.05 X10^3/uL; Basophil% 0.3 % (0-1); Eosinophil# 0.02 X10^3/uL; Eosinophils% 0.1 % (0-5); Hematocrit 47.7 % (37-47); Hemoglobin 17.4 g/dL (12.0-15.0); Lymphocyte # 3.88 X10^3/ul (0.83-4.51); Lymphocyte % 22.3 % (19-41); Mean Corp Hgb Conc 36.5 g/dL (32-36); Mean Corpuscular Hgb 32.7 pg (27.0-32.0); Mean Corpuscular Volume 89.7 fL (81-99); Mean Platelet Vol. 8.4 fl (6.2-12.0); Monocyte# 1.55 X10^3/uL; Monocyte% 8.9 % (0-10); NRBC Flagged by Analyzer 0 % (0-5); Neutrophil # 11.88 X10^3/uL (2.7-7.7); Neutrophil % 68.1 % (47-70); POSITIVE DIFFERENTIAL YES; Platelet Count 407 K/mm3 (150-450); RBC Distribution Width CV 11.9 % (11.6-14.6); RBC Distribution Width SD 38.9 fl (35.1-43.9); Red Blood Count 5.32 M/mm3 (4.2-5.4); White Blood Count 17.4 K/mm3 (4.4-11.0)
[2021-09-01 15:45] LABS: Differential Indicated SCAN CRITERIA MET
[2021-09-01 16:00] LABS: ALB/GLOB Ratio 0.9 RATIO (0.9-2.4); AST(SGOT) 18 U/L (15-37); Alanine Aminotransfer ALT/SGPT 28 U/L (13-56); Albumin, Serum 3.8 g/dL (3.2-5.0); Alkaline Phosphatase 79 U/L (45-117); Anion Gap 10 (5-15); BUN 16 mg/dL (7-18); Calcium,Total 9.1 mg/dL (8.5-10.1); Chloride 83 mmol/L (98-107); Creatinine, Serum 0.76 mg/dL (0.55-1.02); EST Glomerular Filtration Rate 90 mL/min (>60); Est Glom Filt Rate - Afr Amer 109 mL/min (>60); Estimated Creatinine Clearance 101.25 ml/min; Globulin 4.2 g/dL (2.2-4.2); Glucose 112 mg/dL (74-106); Lipase 29 U/L (73-393); Potassium 2.2 mmol/L (3.5-5.1); Sodium Level 128 mmol/L (136-145)
--- NOTE | 2021-09-01 16:19 | EKG12_ITS ---
Test Reason : Blood Pressure : / mmHG Vent. Rate : 067 BPM Atrial Rate : 067 BPM P-R Int : 150 ms QRS Dur : 100 ms QT Int : 580 ms P-R-T Axes : 072 092 060 degrees QTc Int : 612 ms Normal sinus rhythm Nonspecific ST and T wave abnormality Prolonged QT Abnormal ECG Confirmed by BRIDGET OCHOA, CLAY ([id number]), editor at large MANGO SESAY ([id number]) on 09/04/2021 10:31:28 AM Referred By: TL Confirmed By:CLAY GILL MD
[2021-09-01] MEDS: Potassium Chloride Oral Tablet 20 MEQ 60 MEQ PO ×3 (16:30→22:07)
[2021-09-01 16:31] LABS: Bacteria 0 SEEN /hpf (None Seen); Mucous, Urine 0 SEEN /hpf (<or=2+); Red Blood Cells-Urine 0 SEEN /hpf (0-5)
[2021-09-01 16:33] VITALS: BP 118/105
[2021-09-01 16:47] LABS: Platelet Estimate ADEQUATE (ADEQ); Red Cell Morphology NORM C+C NORMAL (NORM C&C)
[2021-09-01 16:52] LABS: Magnesium 2.8 mg/dL (1.6-2.6)
[2021-09-01 16:53] LABS: Color, Urine Yellow (Yellow); Glucose, Dipstick Normal (Normal); Ketone-Dipstick 50 mg/dl (Negative); Leukocyte Esterase-Dipstick Negative /ul (Negative); Nitrite-Dipstick Negative (Negative); Occult Blood-Urine 10 /ul (Negative); Protein-Dipstick 30 mg/dl (Negative); Specific Gravity, Urine 1.015 (1.002-1.030); Urine Bilirubin Dipstick Negative (Negative); Urine Clarity Clear (Clear); Urine Urobilinogen Normal (Normal)
[2021-09-01 17:03] LABS: Squamous Epithelial Cells - UA 10-25 SEEN /hpf (5-10); White Blood Cells 0-5 SEEN /hpf (0-5)
[2021-09-01 17:04] LABS: Internal QC Validated? YES +Cl - CLEAR BKGD; Pregnancy, Urine Negative Negative
[2021-09-01 17:05] LABS: Amphetamine Urine VISTA NEGATIVE (<1000 ng/mL); Barbiturate Urine VISTA NEGATIVE (< 200 ng/mL); Benzodiazepine Urine VISTA NEGATIVE (< 200 ng/mL); Cocaine Urine VISTA NEGATIVE (< 300 ng/mL); Ecstacy Urine VISTA NEGATIVE (< 500 ng/mL); Methadone Urine VISTA NEGATIVE (< 300 ng/mL); PCP Urine VISTA NEGATIVE (< 25 ng/mL); THC Urine VISTA POSITIVE (< 50 ng/mL); Vista UDS pH Range 5
--- NOTE | 2021-09-01 17:24 | HP.PCM_ITS ---
Documented by User: SUZY Timmons 09/01/21 17:46 HPI - General General Date of Admission: 09/01/21 Date of Service: 09/01/21 Chief Complaint: Nausea and vomiting HPI Narrative LUCY LEÓN, is a 36 F who presents with complaints of nausea and vomiting today. Patient reports a history of cyclical vomiting syndrome and occasional cannabis use. Patient states that she has had cyclical vomiting since she was 15 years old and was told at that time that she needed her gallbladder out however following her cholecystectomy she continued to have cyclical vomiting and has been evaluated with by gastroenterology with no clear cause. Patient denies any other medical history. Upon evaluation in ER patient was noted to have severe hypokalemia with a potassium of 2.2. Patient received potassium chloride 60 mEq p.o. x1 in the ER and potassium will be rechecked at 8 PM tonight. [facility] Medical History COPD (chronic obstructive pulmonary disease) Smoker Substance abuse Home Medications albuterol sulfate 2.5 mg INHALATION Q4H PRN PRN #25 vial 07/30/18 [Rx Last Taken 08/29/21] albuterol sulfate [Ventolin HFA] 2 puff INHALATION Q6H PRN 06/24/21 [History Last Taken Unknown] ondansetron HCl [Zofran] 8 mg PO Q12H PRN 09/01/21 [History Last Taken 08/30/21] Allergy/AdvReac Type Severity Reaction Status Date / Time FLEA COLLARS Allergy Hives Uncoded 09/01/21 13:17 Family History no significant family his no significant family history Surgical History History of cholecystectomy History of salpingectomy History of tonsillectomy and adenoidectomy Social History Smoking Status: Heavy Smoker (>10/day) alcohol intake: current alcohol intake frequency: holidays/special occasions only substance use type: marijuana ROS Constitutional Constitutional: Reports malaise; Denies anorexia, chills, fatigue, fever(s) or weakness Cardiovascular Cardiovascular: Denies chest pain, edema, palpitations or syncope Respiratory/Chest Respiratory/Chest: Denies cough, shortness of breath at rest, shortness of breath with exertion or wheezing Gastrointestinal Gastrointestinal: Reports nausea and vomiting; Denies abdominal pain, constipation or diarrhea Genitourinary Genitourinary: Denies dysuria Musculoskeletal Musculoskeletal: Denies back pain, extremity pain, joint pain or joint stiffness Integumentary Integumentary: Denies dry skin Neurologic Neurologic: Denies abnormal gait, abnormal speech, confusion or dizziness Psychiatric Psychiatric: Denies anxiety or depression Endocrine Endocrinology: Denies change in body appearance Hematologic/Lymphatic Hematologic/Lymphatic: Denies anemia Vital Signs Vital Signs Vital Signs: 09/01/21 13:18 09/01/21 16:33 Temperature 96.3 F L Temperature Source Temporal Pulse Rate 110 H Respiratory Rate 14 Blood Pressure 123/92 H 118/105 H Blood Pressure Mean 102 109 Pulse Ox 92 Oxygen Delivery Method Room Air Weight Weight: 212 lb 4.882 oz Body Mass Index (BMI) 32.3 Physical Exam Const alert, oriented x3 and no apparent distress General Appearance: cooperative HEENT normocephalic and head/scalp atraumatic Eyes conjunctivae normal and no scleral icterus Neck no lymphadenopathy and supple General: trachea midline Resp normal respiratory effort, normal air movement and clear to auscultation bilaterally Cardio regular rate, regular rhythm, S1 normal heart sound, S2 normal heart sound and peripheral pulses 2+ throughout GI normal to inspection, nondistended, normoactive bowel sounds, soft to palpation and non-tender Extremity normal capillary refill and no clubbing, cyanosis or edema General Extremity: no tenderness to palpation of joints or extremities Skin General Skin Exam: no breakdown and turgor normal Lesions: no lesions Rashes: no rashes Neuro oriented x3, moves all extremities, no focal motor deficits and no sensory deficits noted Speech: speech normal Motor Exam: general weakness Psych thought process normal, cooperative and affect normal Appearance: appropriate Results Lab / Micro Data Result Diagrams: 09/01/21 15:25 09/01/21 15:25 Labs: Laboratory Results - last 24 hr 09/01/21 15:25: WBC 17.4 H, RBC 5.32, Hgb 17.4 H, Hct 47.7 H, MCV 89.7, MCH 32.7 H, MCHC 36.5 H, RDW Std Deviation 38.9, RDW Coeff of Brigitte 11.9, Plt Count 407, MPV 8.4, Immature Gran % (Auto) 0.300, Neut % (Auto) 68.1, Lymph % (Auto) 22.3, [place] % (Auto) 8.9, Eos % (Auto) 0.1, Baso % (Auto) 0.3, Absolute Neuts (auto) 11.9 H, Absolute Lymphs (auto) 3.88, Nucleated RBC % 0, Differential Comment , Diff Path Review May , Platelet Estimate ADEQUATE, RBC Morphology NORM C+C 09/01/21 15:25: Sodium 128 L, Potassium 2.2 L*, Chloride 83 L, Carbon Dioxide 35.0 H, Anion Gap 10, BUN 16, Creatinine 0.76, Estim Creat Clear Calc 101.25, Est GFR (MDRD) Af Amer 109, Est GFR (MDRD) Non-Af 90, BUN/Creatinine Ratio 21.0 H, Glucose 112 H, Calcium 9.1, Total Bilirubin 1.00, AST 18, ALT 28, Alkaline Phosphatase 79, Total Protein 8.0, Albumin 3.8, Globulin 4.2, Albumin/Globulin Ratio 0.9, Lipase 29 L 09/01/21 15:25: Magnesium 2.8 H 09/01/21 16:25: Urine Opiates Screen NEGATIVE, Urine Methadone Screen NEGATIVE, Ur Barbiturates Screen NEGATIVE, Ur Phencyclidine Scrn NEGATIVE, Ur Amphetamines Screen NEGATIVE, U Methamphetamin-MDMA NEGATIVE, U Benzodiazepines Scrn NEGATIVE, Urine Cocaine Screen NEGATIVE, U Cannabinoids Screen POSITIVE H, Ur Drug Screen Comment 09/01/21 16:25: Urine Color Yellow, Urine Clarity Clear, Urine pH 6.0, Ur Specific [place] 1.015, Urine Protein 30 H, Urine Glucose (UA) Normal, Urine Ketones 50 H, Urine Occult Blood 10 H, Urine Nitrite Negative, Urine Bilirubin Negative, Urine Urobilinogen Normal, Ur Leukocyte Esterase Negative, Urine RBC 0 SEEN, Urine WBC 0-5 SEEN, Ur Squamous Epith Cells 10-25 SEEN, Urine Bacteria 0 SEEN, Urine Mucus 0 SEEN, Urine Test Negative Assessment & Plan Assessment/Plan (1) Acute hyponatremia: (2) Prolonged Q-T interval on ECG: (3) Cyclical vomiting: (4) Acute hypokalemia: PLAN: 1. Acute hypokalemia -Admit to PCU -Patient received potassium chloride 60 mEq p.o. x1 in ER, will repeat potassium at 8 PM -Continuous cardiac monitoring, patient noted to have QT abnormalities on EKG in ER 2. Hyponatremia -Likely secondary to GI losses from vomiting -Patient received sodium chloride 1 L bolus x1 in ER -Judicious IV fluid resuscitation ordered 3. Cyclical vomiting -Haldol 5 mg IV x1 ordered in ER, patient reports cessation of vomiting at this time -We will continue as needed Haldol for cyclical vomiting -Regular diet ordered as patient tolerates -Patient advised to stop smoking cannabis as this is likely the source of her cyclical vomiting 4. Asthma -Continue home medication regimen of as needed albuterol -Currently stable DVT prophylaxis-not indicated This patient was seen by Annia Alonso NP-C under the supervision of Dr. Martini. 27 minutes spent in clinical coordination of patient's plan of care. Documented by User: Dr. Cassy Martini DO 09/01/21 18:07 HPI - General General Date of Admission: 09/01/21 Date of Service: 09/01/21 Chief Complaint: Nausea vomiting/abdominal pain HPI Narrative This patient was seen in conjunction with Annia Alonso NP. The following is representation my independent history physical examination. Please see the fo [facility] for any addendum to the above. Mrs. León is a 28-year-old female who presented the emergency department with nausea vomiting abdominal pain. She reports a history of what she has been told to be cyclic vomiting syndrome from cannabis use. She has ongoing use of cannabis and has not quit despite being told that she has cyclic vomiting related to her cannabis use. She does have a history of cholecystectomy but continued to have vomiting after this was performed. At this time her symptoms have resolved with treatment by the ER physician and she has been able to take p.o. however her potassium was found to be profoundly low. In the emergency department her vital signs were stable. Her CBC shows a leukocytosis of 17.4 however I expect this is reactive/dilutional as all of her cell lines are elevated. Her serum sodium is 128 her serum potassium is 2.2 her serum chloride is 83 but her serum BUN and creatinine are normalized at this point. Magnesium was obtained given her profound hypokalemia and was found to be 2.8. Her LFTs are completely normal and her lipase was found to be 29. Her UA shows ketones and some protein but shows no signs of infection. In the emergency department she was given IV fluids and Haldol and Capsaicin for nausea which has profoundly help and she was able to take p.o. potassium replacement at 60 mEq and has had no issues keeping it down. Given her profound hypokalemia request for admission was made because she had some EKG changes consistent with hypokalemia. [facility] Medical History COPD (chronic obstructive pulmonary disease) Smoker Substance abuse Home Medications albuterol sulfate 2.5 mg INHALATION Q4H PRN PRN #25 vial 07/30/18 [Rx Last Taken 08/29/21] albuterol sulfate [Ventolin HFA] 2 puff INHALATION Q6H PRN 06/24/21 [History Last Taken Unknown] ondansetron HCl [Zofran] 8 mg PO Q12H PRN 09/01/21 [History Last Taken 08/30/21] Allergy/AdvReac Type Severity Reaction Status Date / Time FLEA COLLARS Allergy Hives Uncoded 09/01/21 13:17 Family History no significant family his no significant family history Surgical History History of cholecystectomy History of salpingectomy History of tonsillectomy and adenoidectomy Social History Smoking Status: Heavy Smoker (>10/day) alcohol intake: current alcohol intake frequency: holidays/special occasions only substance use type: marijuana ROS Constitutional Constitutional: Denies anorexia, change in weight, chills, fatigue, fever(s), malaise, night sweats, weakness, weight gain or weight loss Eyes Eyes: Denies blurry vision, change in vision, discharge from eye(s), double vision, erythema, eye pain, irritation or itchy eyes ENT HEENT: Denies abnormal hearing, dysphagia, ear pain, epistaxis, headache(s), hearing loss, loss taste/smell, nasal congestion, nasal discharge, post nasal drip, sinus pain, sinus pressure, sore throat or throat swelling Cardiovascular Cardiovascular: Denies chest pain, claudication, edema, orthopnea, palpitations, paroxysmal nocturnal dyspnea or syncope Respiratory/Chest Respiratory/Chest: Denies cough, hemoptysis, shortness of breath at rest, shortness of breath with exertion or wheezing Gastrointestinal Gastrointestinal: Reports abdominal pain, nausea and vomiting; Denies constipation, diarrhea, dyspepsia, hematemesis, hematochezia or melena Genitourinary Genitourinary: Denies dysuria, hematuria, nocturia, oliguria, polyuria, urinary frequency, urinary hesitancy, urinary incontinence or urinary urgency Musculoskeletal Musculoskeletal: Denies back pain, extremity pain, joint pain, joint stiffness, joint swelling, limited range of motion, muscle weakness, neck pain or stiffness Integumentary Integumentary: Denies dry skin, jaundice, lesions, pruritus, rash or wounds Neurologic Neurologic: Denies abnormal gait, abnormal speech, confusion, dizziness, focal weakness, headache(s), lack of coordination, numbness, seizures, sensory deficit, tingling, tremor(s) or weakness Psychiatric Psychiatric: Denies anxiety, depression, homicidal ideation or suicidal ideation Endocrine Endocrinology: Denies change in body appearance, cold intolerance, heat into[place], polydipsia or polyuria Hematologic/Lymphatic Hematologic/Lymphatic: Denies anemia, easy bleeding, easy bruising or lymph adenopathy Physical Exam Const alert, oriented x3 and no apparent distress Constitutional Narrative: Obese middle-aged white female sitting up in bed, appears comfortable, nontoxic, appears much older than stated age General Appearance: cooperative HEENT normocephalic and head/scalp atraumatic HEENT Narrative: Mucous membranes are dry, no thrush, dentition is fair, Mallampati 2 Resp normal respiratory effort Resp Narrative: Diffusely diminished with left upper lobe end expiratory wheeze that clears with cough Auscultation: wheezes; Negative for rales or rhonchi Cardio regular rate, regular rhythm, S1 normal heart sound, S2 normal heart sound, no murmurs, no rub, no gallops and peripheral pulses 2+ throughout GI normal to inspection, nondistended, normoactive bowel sounds, soft to palpation, non-tender and non-distended Palpation: no hepatosplenomegaly Extremity normal capillary refill and no clubbing, cyanosis or edema General Extremity: no tenderness to palpation of joints or extremities Neuro CN's II-XII intact bilaterally, no focal motor deficits and no sensory deficits noted Speech: speech normal Psych Mood & Affect: flat affect Results Lab / Micro Data Result Diagrams: 09/01/21 15:25 09/01/21 15:25 Assessment & Plan Assessment/Plan (1) Acute hyponatremia: (2) Prolonged Q-T interval on ECG: (3) Cyclical vomiting: (4) Hypokalemia: (5) Dehydration, moderate: PLAN: Assessment: Acute hypokalemia Acute hyponatremia Cyclic vomiting syndrome History of asthma Tobacco abuse Leukocytosis Erythrocytosis Plan: -60 mEq of p.o. potassium in the emergency department--> will give another 60 p.o. given her potassium was 2.2 on admission with a repeat potassium this evening at 7 PM -Patient was given 1 L of IV fluids in emergency department will hold on further IV fluids given nausea vomiting has resolved and patient is able to take p.o. -General diet -Patient deferred nicotine patch at this time -Extensive discussion with the patient with regards to abstaining from cannabis use -Repeat CBC and BMP in a.m. -Continue home inhalers Charges/Coding Visit Charges Inpatient E&M: 75869 Init Hosp L2
--- NOTE | 2021-09-01 17:49 | NURSING ---
105 OBS JONNY HYPOKALEMIA, EKG CHANGES, CANNABIS, HYPEREMESIS
[2021-09-01 17:55] VITALS: BP 107/86; PULSE 102; RESP 16; TEMP 37.2
[2021-09-01 18:04] VITALS: BMI 21.0
[2021-09-01 18:13] VITALS: BP 109/60; PULSE 75; RESP 16; TEMP 36.9; O2SAT 93
--- NOTE | 2021-09-01 19:32 | PCS.PANDOC ---
PANDEMIC DOCUMENTATION INITIATED: Date: 03/20/2021 Time: 190
[2021-09-01 19:35] VITALS: PULSE 75
[2021-09-01 20:48] LABS: Potassium 2.5 mmol/L (3.5-5.1)
[2021-09-01] MEDS: 0.9% Saline Lock 10 ML Syringe IV (20:59)
[2021-09-01 22:08] VITALS: BP 134/80; PULSE 86; RESP 18; TEMP 37.1; O2SAT 93
--- NOTE | 2021-09-02 12:00 | DS.PCM_ITS ---
Documented by User: Kaity Villanueva NP, [employer]-C 09/03/21 08:44 Providers Date of Admission: 09/01/21 Date of Discharge: 09/02/21 Primary Care Physician: Dr. Bernard Balbuena MD Reason For Visit: SEVERE HYPOKALEMIA Diagnosis Discharge Diagnosis (1) Acute hyponatremia: Status: Acute Code(s): E87.1 - Hypo-osmolality and hyponatremia (2) Prolonged Q-T interval on ECG: Status: Acute Code(s): R94.31 - Abnormal electrocardiogram [ECG] [EKG] (3) Cyclical vomiting: Status: Chronic Code(s): G43.A0 - Cyclical vomiting, in migraine, not intractable (4) Hypokalemia: Status: Acute Code(s): E87.6 - Hypokalemia (5) Dehydration, moderate: Status: Acute Code(s): E86.0 - Dehydration Medications at Discharge Home Medications albuterol sulfate 2.5 mg INHALATION Q4H PRN PRN #25 vial 07/30/18 albuterol sulfate [Ventolin HFA] 2 puff INHALATION Q6H PRN 06/24/21 ondansetron HCl 8 mg PO Q12H PRN 09/01/21 potassium chloride [K-Tab] 20 meq PO DAILY #1 tab 09/03/21 Hospital Course Operations None Procedures None Summary of Care Provided Minutes Spent on Discharge: 35 Hospital Course: Patient is a 36-year-old female admitted 09/01/2021 due to nausea, vomiting. 1. Acute hypokalemia and hyponatremia secondary to cyclic vomiting syndrome as a result of cannabis use-nausea, vomiting resolved at discharge. Patient advised to stop smoking cannabis as this is likely the source of her cyclic vomiting. Electrolytes replaced per protocol. Discharged on potassium supple ment. Will need repeat BMP in 1 week by primary care provider. 2. History of asthma-continue as needed inhaler regimen. 3. Tobacco dependence-encouraged cessation. Patient seen and examined prior to discharge. Physical assessment as noted below. Patient is stable for discharge with follow up recommendations as noted above. This patient was seen by Kaity Villanueva NP-C under the supervision of Dr. Peterson. Time spent examining patient, reviewing data and subsequent management of care: 13 Minutes Physical Exam Const alert, oriented x3 and no apparent distress Orientation / Consciousness: awake, oriented to person, oriented to place and oriented to time HEENT normocephalic and moist oral mucous membranes Eyes PERRL, EOMs intact bilaterally and conjunctivae normal Neck no lymphadenopathy Resp normal respiratory effort and clear to auscultation bilaterally Cardio regular rate, regular rhythm and no murmurs Peripheral Pulses: pulses 2+ throughout GI normal to inspection, nondistended, normoactive bowel sounds, non-tender and non-distended Extremity normal to inspection Skin no rashes or lesions noted Lesions: no lesions Rashes: no rashes Trauma: no lacerations or abrasions Neuro CN's II-XII intact bilaterally, no focal motor deficits, no sensory deficits noted and deep tendon reflexes 2+ bilaterally Psych mental status grossly normal and affect normal Weight / BMI Weight Weight: 138 lb 10.732 oz Body Mass Index (BMI) 21.0 ABG / Lab / Microbiology Data Result Diagrams: 09/02/21 04:13 09/02/21 12:35 Laboratory: Laboratory Results - last 24 hr 09/02/21 04:13: WBC 15.9 H, RBC 5.02, Hgb 16.4 H, Hct 45.9, MCV 91.4, MCH 32.7 H , MCHC 35.7, RDW Std Deviation 40.4, RDW Coeff of Brigitte 12.0, Plt Count 386, MPV 8.6, Immature Gran % (Auto) 0.500, Neut % (Auto) 65.1, Lymph % (Auto) 25.0, [place] % (Auto) 9.0, Eos % (Auto) 0.1, Baso % (Auto) 0.3, Absolute Neuts (auto) 10.4 H, Absolute Lymphs (auto) 3.98, Nucleated RBC % 0 09/02/21 04:13: Sodium 132 L, Potassium 2.9 L, Chloride 93 L, Carbon Dioxide 31.0, Anion Gap 8, BUN 14, Creatinine 0.66, Estim Creat Clear Calc 114.76, Est GFR (MDRD) Af Amer 129, Est GFR (MDRD) Non-Af 106, BUN/Creatinine Ratio 21.2 H, Glucose 102, Calcium 9.0, Phosphorus 1.8 L 09/02/21 12:35: Potassium 3.1 L Meaningful Use Info Meaningful Use Diagnoses (Choose all that apply): None applicable Discharge Plan Admission Admit Date/Time: 09/01/21 17:48 Primary Reason for Your Visit: Hypokalemia, cyclic vomiting syndrome Attending Provider: Cassy Martini Primary Care Provider: Bernard Balbuena Discharge Orders/Prescriptions Prescriptions: New potassium chloride [K-Tab] 20 mEq tablet extended release 20 meq PO DAILY Qty: 1 RF: 0 Continued albuterol sulfate 2.5 MG/3 ML solution for nebulization 2.5 mg Inhalation Q4H PRN PRN (Reason: Wheezing) Qty: 25 RF: 0 albuterol sulfate [Ventolin HFA] 90 mcg/actuation Hfa Aerosol Inhaler 2 puff INHALATION Q6H PRN (Reason: Wheezing) RF: 0 ondansetron HCl 8 mg Tablet 8 mg PO Q12H PRN (Reason: Vomiting) RF: 0 Referrals / Follow Up: Bernard Balbuena MD [Primary Care Provider] - In 1 Week Disposition Disposition (needs filled in before D/C Order can be placed): Home, Self Care Documented by User: Dr. Bernard Peterson DO 09/03/21 17:04 Providers Date of Admission: 09/01/21 Reason For Visit: SEVERE HYPOKALEMIA Medications at Discharge Home Medications albuterol sulfate 2.5 mg INHALATION Q4H PRN PRN #25 vial 07/30/18 albuterol sulfate [Ventolin HFA] 2 puff INHALATION Q6H PRN 06/24/21 ondansetron HCl 8 mg PO Q12H PRN 09/01/21 potassium chloride [K-Tab] 20 meq PO DAILY #1 tab 09/03/21 ABG / Lab / Microbiology Data Result Diagrams: 09/02/21 04:13 09/02/21 12:35 Discharge Plan Admission Admit Date/Time: 09/01/21 17:48 Primary Reason for Your Visit: Hypokalemia, cyclic vomiting syndrome Attending Provider: Cassy Martini Primary Care Provider: Bernard Balbuena Discharge Orders/Prescriptions Prescriptions: New potassium chloride [K-Tab] 20 mEq tablet extended release 20 meq PO DAILY Qty: 1 RF: 0 Continued albuterol sulfate 2.5 MG/3 ML solution for nebulization 2.5 mg Inhalation Q4H PRN PRN (Reason: Wheezing) Qty: 25 RF: 0 albuterol sulfate [Ventolin HFA] 90 mcg/actuation Hfa Aerosol Inhaler 2 puff INHALATION Q6H PRN (Reason: Wheezing) RF: 0 ondansetron HCl 8 mg Tablet 8 mg PO Q12H PRN (Reason: Vomiting) RF: 0 Referrals / Follow Up: Bernard Balbuena MD [Primary Care Provider] - In 1 Week Disposition Disposition (needs filled in before D/C Order can be placed): Home, Self Care Charges/Coding Addendum Addendum: Patient was seen and examined on 09/02/2021 independently of Kaity Villanueva, she had to be given additional oral potassium today, repeat potassium just prior to discharge was also slightly low and she was given additional oral potassium before her discharge today. I had a talk with the patient concerning her marijuana usage, she said she would like to quit, I suggested that she take prescription potassium in case she decides not to stop smoking marijuana. On examination she appeared in good health and spirits, she does not appear to be in any distress. Vital signs as documented. Skin warm and dry and without overt rashes. Neck without JVD, thyroid appears normal, trachea is midline, neck is supple. Lungs clear, normal air movement was noted. Heart exam notable for regular rhythm, normal sounds and absence of murmurs, rubs or gallops. Abdomen unremarkable and without evidence of organomegaly, masses, or abdominal aortic enlargement, bowel sounds are present in all 4 quadrants, no abdominal tenderness was noted. Extremities nonedematous, no cyanosis was noted, no clubbing was noted. Neuro: Cranial nerves II through XII are grossly intact, no focal motor deficits were noted, sensation to light touch and pinprick is intact, motor exam 5/5 throughout. Psych: Patient is alert and oriented x3, she does not appear anxious or depressed, she does not appear agitated. Impression #1 hypokalemia secondary to cyclic vomiting from cannabis use #2 cyclic vomiting secondary to cannabis use Patient appears stable for discharge at this time, I have reviewed Kaity Villanueva's discharge summary including her medical assessment and plan of care and endorse it. Total clinical time spent by myself regarding this patient is: 19 minutes Visit Charges Inpatient E&M: [id number] Disch Hosp
[2021-09-02 19:07] LABS: Anion Gap 8 (5-15); BUN 14 mg/dL (7-18); BUN/Creat Ratio 21.2 RATIO (10-20); Chloride 93 mmol/L (98-107); Creatinine, Serum 0.66 mg/dL (0.55-1.02); EST Glomerular Filtration Rate 106 mL/min (>60); Est Glom Filt Rate - Afr Amer 129 mL/min (>60); Estimated Creatinine Clearance 114.76 ml/min; Glucose 102 mg/dL (74-106); Phosphorus 1.8 mg/dL (2.5-4.9); Potassium 2.9 mmol/L (3.5-5.1); Sodium Level 132 mmol/L (136-145)
[2021-09-02 22:38] LABS: Absolute Lymphocyte Count 3.98 X10^3/uL (0.83-4.51); Absolute Neutrophil Count 10.4 X10^3/uL (2.0-7.7); Basophil# 0.04 X10^3/uL; Basophil% 0.3 % (0-1); Eosinophil# 0.02 X10^3/uL; Eosinophils% 0.1 % (0-5); Hematocrit 45.9 % (37-47); Hemoglobin 16.4 g/dL (12.0-15.0); Lymphocyte # 3.98 X10^3/ul (0.83-4.51); Mean Corp Hgb Conc 35.7 g/dL (32-36); Mean Corpuscular Hgb 32.7 pg (27.0-32.0); Mean Corpuscular Volume 91.4 fL (81-99); Mean Platelet Vol. 8.6 fl (6.2-12.0); Monocyte# 1.44 X10^3/uL; NRBC Flagged by Analyzer 0 % (0-5); Neutrophil # 10.36 X10^3/uL (2.7-7.7); Neutrophil % 65.1 % (47-70); Platelet Count 386 K/mm3 (150-450); RBC Distribution Width SD 40.4 fl (35.1-43.9); Red Blood Count 5.02 M/mm3 (4.2-5.4); White Blood Count 15.9 K/mm3 (4.4-11.0)
[2021-09-03 01:47] LABS: Potassium 3.1 mmol/L (3.5-5.1)
[2021-09-04 12:45] LABS: Pathologist Review Reviewed
== END 2021-09-02 15:03 | disposition home or self-care (01) | DRG 641 ==
LOC: ED 17:25 → PCU 17:57
PROVIDERS: Admitting Provider Internal Medicine; Emergency Provider Emergency Medicine; PCP Family Medicine; Visit Provider Internal Medicine
DX: E87.6 Hypokalemia (principal); E87.1 Hypo-osmolality and hyponatremia; J44.9 Chronic obstructive pulmonary disease, unspecified; E86.0 Dehydration; F17.200 Nicotine dependence, unspecified, uncomplicated; F12.10 Cannabis abuse, uncomplicated; R11.15 Cyclical vomiting syndrome unrelated to migraine; R94.31 Abnormal electrocardiogram [ECG] [EKG]
CPT/HCPCS: 36415; 80048; 80053; 80307; 81001; 81025; 83690; 83735; 84100; 84132; 85025; 93005; 97802; 99285; J7030; A4216

== ENCOUNTER 2022-05-20 06:45 | Emergency (ER) | payer SELFPAY ==
[2022-05-20 06:46] VITALS: BP 129/61; PULSE 120; RESP 33; TEMP 36.8; O2SAT 94; BMI 23.6
[2022-05-20 06:54] VITALS: O2SAT 97
[2022-05-20 06:57] VITALS: BP 129/61; PULSE 111; RESP 26; TEMP 36.8; O2SAT 95
--- NOTE | 2022-05-20 07:08 | EKG12_ITS ---
Test Reason : SOB Blood Pressure : / mmHG Vent. Rate : 102 BPM Atrial Rate : 102 BPM P-R Int : 164 ms QRS Dur : 090 ms QT Int : 348 ms P-R-T Axes : 079 076 062 degrees QTc Int : 453 ms Sinus tachycardia Possible Left atrial enlargement Poor R wave progression Confirmed by JUDIT OCHOA, DIONISIO ([id number]), web content editor MANGO SESAY ([id number]) on 05/22/2022 8:14:26 AM Referred By: Confirmed By:DIONISIO SPAIN MD
--- NOTE | 2022-05-20 07:12 | ED.VIS.DYS ---
HPI History of Present Illness Chief Complaint: Shortness of Breath Informant: patient Onset/Context/Timing Onset: Days (2) Context: gradual Timing: Waxes and wanes Quality: Positive for Wheezing Worsened by: Coughing Associated Symptoms cough, rhinorrhea and post nasal drip Narrative Narrative: Patient started with a cough on Saturday. She brought up a little yellow sputum but not doing that regularly now. Not really bringing up any sputum. Subjective chills but no measured fevers. Slight myalgias. No headache. She also had a sore throat and slight runny nose although that is better. The reason she came in now as she has been wheezing more. She has been using her albuterol a lot before arrival. She said it helps but not as long as normal. She is still smoking and was counseled to quit. No hemoptysis. No recent travel surgery or immobilization personal or family history of DVT or PE. No chest pain. No leg pain or swelling. [facility] Medical History Cannabis hyperemesis syndrome concurrent with and due to cannabis abuse COPD (chronic obstructive pulmonary disease) Cyclic vomiting syndrome Cyclical vomiting Smoker Substance abuse Home Medications albuterol sulfate 2.5 mg/3 mL (0.083 %) solution for nebulization 2.5 mg (3 mL) Inhalation Q4H PRN PRN Wheezing #25 vials 07/30/18 [Rx Last Taken 08/29/21] albuterol sulfate 90 mcg/actuation aerosol inhaler (Ventolin HFA) 2 puff inhalation Q6H PRN Wheezing 06/24/21 [History Last Taken Unknown] ondansetron HCl 8 mg tablet 8 mg PO Q12H PRN Vomiting 09/01/21 [History Last Taken 08/30/21] albuterol sulfate 2.5 mg/3 mL (0.083 %) solution for nebulization 2.5 mg (3 mL) inhalation Q4H PRN #25 vials 05/20/22 [Rx Last Taken Unknown] prednisone 20 mg tablet 60 mg PO DAILY #15 tabs 05/20/22 [Rx Last Taken Unknown] Allergy/AdvReac Type Severity Reaction Status Date / Time FLEA COLLARS Allergy Hives Uncoded 09/01/21 13:17 Surgical History History of cholecystectomy History of salpingectomy History of tonsillectomy and adenoidectomy Social History Smoking Status: Heavy Smoker (>10/day) alcohol intake: current alcohol intake frequency: holidays/special occasions only substance use type: marijuana ROS ROS ED Constitutional Constitutional ED: Reports chills Eyes Eyes: Denies change in vision ENT ENT ED: Denies rhinorrhea or sore throat Cardiovascular Cardiovascular: Denies chest pain, palpitations or racing heartbeat Respiratory/Chest Respiratory/Chest: Reports cough; Denies sputum Gastrointestinal Gastrointestinal: Denies abdominal pain, nausea or vomiting Genitourinary Genitourinary ED: Denies dysuria Musculoskeletal Musculoskeletal: Reports myalgias Integumentary Denies rash Neurologic Neurologic: Denies headache(s) Endocrine Endocrinology: Denies polydipsia or polyuria Hematologic/Lymphatic Hematologic/Lymphatic: Denies easy bleeding or easy bruising Allergic/Immunologic Allergic/Immunologic ED: Denies urticaria EXAM Physical Exam Const Vital Signs: 05/20/22 06:46 05/20/22 06:54 05/20/22 06:57 Temperature 98.2 F 98.2 F Temperature Source Oral Oral Pulse Rate 120 H 111 H Respiratory Rate 33 H 26 H Respiratory Effort Short of Breath Labored Accessory Muscle Use Respiratory Depth Normal Respiratory Pattern Tachypnea Blood Pressure 129/61 H 129/61 H Blood Pressure Mean 83 83 Pulse Ox 94 95 Oxygen Delivery Method Room Air Room Air Room Air 05/20/22 07:32 05/20/22 07:32 Temperature Temperature Source Pulse Rate 105 H Respiratory Rate 18 Respiratory Effort Respiratory Depth Respiratory Pattern Blood Pressure Blood Pressure Mean Pulse Ox 95 Oxygen Delivery Method Room Air Positive well nourished and well developed General Appearance ED: well developed and NAD HEENT Reports moist mucous membranes Neck no JVD Neck Narrative: no stridor Resp normal respiratory effort Auscultation: wheezes; Negative for rales or rhonchi Cardio regular rhythm Rate: tachycardic GI non-tender Palpation: soft Extremity normal to inspection General Extremety ED: Negative for edema or tenderness General Extremity: Negative for edema Neuro Sensorium / Orientation: alert Psych mental status grossly normal Skin no wounds MDM MDM MDM Narrative Medical decision making narrative: X-ray shows no acute process. Patient is much better after breathing treatment. I find that the patient does have nebulizer at home but she is out of any liquids for it. I will write for this. We will get her on a short course of steroids. She is not having sputum now. She has no fever. No infiltrate. We will hold on antibiotics. Radiography Diagnostic Testing: Clinical Impression(s) from Imaging Studies Chest X-Ray 05/20/22 07:53 IMPRESSION: No acute cardiopulmonary process identified. Electronically Signed: Denise Wright MD at 8:05 EDT , 2 view states for a looked at by me and read by radiology shows no acute process. EKG Initial EKG: Comments: EKG done for increased heart rate read by me shows normal sinus rhythm with borderline tachycardic rate at 102. No ventricular ectopy. No acute ST elevation or depression. [place] interval, QRS duration and QTc normal. Discharge Plan Triage Chief Complaint: Shortness of Breath ED Provider: Reginald Hood Dx/Rx/DC Orders Clinical Impression: COPD with acute exacerbation Instructions: ED COPD Flare Prescriptions: New albuterol sulfate 2.5 mg /3 mL (0.083 %) solution for nebulization 2.5 mg inhalation Q4H PRN Qty: 25 2RF Rx Instructions: Use q4 hours and PRN for wheezing prednisone 20 mg tablet 60 mg PO DAILY Qty: 15 0RF No Action albuterol sulfate 2.5 MG/3 ML solution for nebulization 2.5 mg Inhalation Q4H PRN PRN (Reason: Wheezing) Qty: 25 0RF albuterol sulfate [Ventolin HFA] 90 mcg/actuation Hfa Aerosol Inhaler 2 puff INHALATION Q6H PRN (Reason: Wheezing) ondansetron HCl 8 mg Tablet 8 mg PO Q12H PRN (Reason: Vomiting) Stand Alone Forms: ED Work / School Excuse Primary Care Provider: Bernard Balbuena Referrals: Bernard Balbuena MD [Primary Care Provider] - 3-5 Days if not improving Disposition Disposition: Home, Self Care
[2022-05-20] MEDS: MethylPREDNISolone 125 MG/2 ML Vial IV (07:19)
[2022-05-20] MEDS: Ipratropium/Albuterol Sulfate 3 ML AMPUL.NEB INHALATION (07:31)
[2022-05-20 07:32] VITALS: PULSE 105; RESP 18; O2SAT 95
--- NOTE | 2022-05-20 07:53 | RAD_ITS ---
HISTORY: cough. TECHNIQUE: XR Chest 2 Views. COMPARISON: 04/11/2016. FINDINGS: CARDIOMEDIASTINAL BORDERS: Cardiac silhouette within normal limits in size. Mediastinal contour unremarkable. LUNGS: Radiographically clear. PLEURA: No pleural effusion or pneumothorax seen. OSSEOUS STRUCTURES: Unremarkable. RAD/Chest PA and Lateral IMPRESSION: No acute cardiopulmonary process identified. Electronically Signed: Denise Wright MD at 8:05 EDT ,
[2022-05-20 08:00] VITALS: BP 117/78; PULSE 112; RESP 24; TEMP 37.1; O2SAT 94
== END 2022-05-20 08:27 | disposition home or self-care (01) ==
PROVIDERS: Emergency Provider Emergency Medicine; PCP Family Medicine; Visit Provider Emergency Medicine
DX: J44.1 Chronic obstructive pulmonary disease with (acute) exacerbation (principal); J02.9 Acute pharyngitis, unspecified; R11.15 Cyclical vomiting syndrome unrelated to migraine; F17.200 Nicotine dependence, unspecified, uncomplicated; Z79.899 Other long term (current) drug therapy
CPT/HCPCS: 71046; 93005; 94640; 96374; 99284; A4216

== ENCOUNTER 2024-04-29 17:10 | Emergency (ER) | payer BC, SELFPAY ==
[2024-04-29 17:11] VITALS: BP 122/86; PULSE 66; RESP 18; TEMP 36.2; O2SAT 98; BMI 20.4
--- NOTE | 2024-04-29 17:32 | RAD_ITS ---
STUDY: X-RAY CHEST REASON FOR EXAM: Female, 39 years old. CP TECHNIQUE: Single AP portable view of the chest. COMPARISON: 05/20/2022. FINDINGS: There is hyperinflation of the lungs consistent with chronic obstructive lung disease (COPD). No infiltrates. No effusions. There is no demonstrated pleural abnormality. Normal size heart. Normal mediastinum and antolin. Normal visualized pulmonary arteries. Normal visualized aortic arch and descending thoracic aorta. Normal visualized thoracic spine. Normal visualized ribs, clavicles, and shoulders. There is no demonstrated abnormality of the visualized soft tissue structures of the upper abdomen. RAD/Chest 1 View (Portable) IMPRESSION: There are findings consistent with COPD. There is no evidence of acute chest disease. Electronically Signed: Kyle Beltran MD at 18:07 EDT ,
[2024-04-29 17:48] LABS: Absolute Lymphocyte Count 4.17 X10^3/uL (0.83-4.51); Absolute Neutrophil Count 6.1 X10^3/uL (2.0-7.7); Basophil# 0.05 X10^3/uL; Basophil% 0.4 % (0-1); Eosinophil# 0.12 X10^3/uL; Eosinophils% 1.1 % (0-5); Hematocrit 45.3 % (37-47); Hemoglobin 15.1 g/dL (12.0-15.0); Lymphocyte # 4.17 X10^3/ul (0.83-4.51); Lymphocyte % 37.3 % (19-41); Mean Corp Hgb Conc 33.3 g/dL (32-36); Mean Corpuscular Hgb 32.9 pg (27.0-32.0); Mean Corpuscular Volume 98.7 fL (81-99); Mean Platelet Vol. 8.7 fl (6.2-12.0); Monocyte# 0.69 X10^3/uL; Monocyte% 6.2 % (0-10); NRBC Flagged by Analyzer 0 % (0-5); Neutrophil # 6.12 X10^3/uL (2.7-7.7); Neutrophil % 54.7 % (47-70); Platelet Count 297 K/mm3 (150-450); RBC Distribution Width CV 12.9 % (11.6-14.6); RBC Distribution Width SD 46.9 fl (35.1-43.9); Red Blood Count 4.59 M/mm3 (4.2-5.4); White Blood Count 11.2 K/mm3 (4.4-11.0)
[2024-04-29 17:50] LABS: Anion Gap 5 (5-15); BUN 5 mg/dL (7-18); BUN/Creat Ratio 6.5 RATIO (10-20); Calcium,Total 8.9 mg/dL (8.5-10.1); Chloride 107 mmol/L (98-107); Creatinine, Serum 0.77 mg/dL (0.55-1.02); EST Glomerular Filtration Rate 88 mL/min (>60); Est Glom Filt Rate - Afr Amer 106 mL/min (>60); Estimated Creatinine Clearance 92.59 ml/min; Glucose 93 mg/dL (74-106); Potassium 3.9 mmol/L (3.5-5.1); Sodium Level 139 mmol/L (136-145); Troponin-I HS < 3 pg/mL (3.0-54.0)
[2024-04-29 18:00] LABS: Prothrombin Time (Protime)PT. 13.6 SECONDS (11.7-14.9)
[2024-04-29] MEDS: Ketorolac 30 MG/ML Syringe IV (19:00)
[2024-04-29 19:01] VITALS: PULSE 64; RESP 18
[2024-04-29] MEDS: Ipratropium/Albuterol Sulfate 3 ML AMPUL.NEB INHALATION (19:01)
[2024-04-29 19:11] VITALS: BP 101/69; PULSE 64; RESP 16; O2SAT 99
--- NOTE | 2024-04-29 19:13 | ED.VIS.DYS ---
HPI History of Present Illness Chief Complaint: Shortness of Breath Informant: patient Onset/Context/Timing Onset: Today Context: sudden Timing: Continuous Quality: Positive for Dyspnea on exertion Worsened by: Exertion Relieved by: Nothing Associated Symptoms subjective and chills; Negative for cough, rhinorrhea, ear pain, fever, sore throat or sweats Chest Pain: Positive for Sharp and Stabbing Narrative Narrative: Patient presents with shortness of breath and right-sided chest pain that began today. Patient states it began rather suddenly when she came home from work this morning. Patient states it is constant. Patient states her breathing is worse whenever she exerts herself. Patient states nothing seems to help with it. Patient describes her pain as sharp and stabbing. Patient states it is mainly over the right lateral chest and into the right thoracic area posteriorly. Patient admits to some subjective chills but denies any fevers. Patient denies any cough. [facility] Medical History Cyclic vomiting syndrome Cannabis hyperemesis syndrome concurrent with and due to cannabis abuse Substance abuse Smoker COPD (chronic obstructive pulmonary disease) Cyclical vomiting Home Medications ?Medication ?Instructions ?Recorded ?Last Taken ?Type albuterol sulfate 2.5 mg/3 mL 2.5 mg (3 mL) Inhalation Q4H PRN 07/30/18 08/29/21 Rx (0.083 %) solution for nebulization PRN Wheezing #25 vials albuterol sulfate 90 mcg/actuation 2 puff inhalation Q6H PRN Wheezing 06/24/21 Unknown History aerosol inhaler (Ventolin HFA) ondansetron HCl 8 mg tablet 8 mg PO Q12H PRN Vomiting 09/01/21 08/30/21 History albuterol sulfate 2.5 mg/3 mL 2.5 mg (3 mL) inhalation Q4H PRN 05/20/22 Unknown Rx (0.083 %) solution for nebulization #25 vials prednisone 20 mg tablet 60 mg (3 x 20 mg) PO DAILY #15 tabs 05/20/22 Unknown Rx Allergy/AdvReac Type Severity Reaction Status Date / Time Environmental Allergies: Allergy Hives Verified 04/29/24 17:11 Uncoded Surgical History History of salpingectomy History of tonsillectomy and adenoidectomy History of cholecystectomy Social History Smoking Status: Current every day smoker tobacco type: cigarettes alcohol intake: current alcohol intake frequency: holidays/special occasions only substance use type: marijuana ROS ROS ED Constitutional Constitutional ED: Denies chills or fever(s) Eyes Eyes: Denies blurry vision or change in vision ENT ENT ED: Denies rhinorrhea or sore throat Cardiovascular Cardiovascular: Reports chest pain; Denies palpitations Respiratory/Chest Respiratory/Chest: Reports dyspnea; Denies cough Gastrointestinal Gastrointestinal: Reports nausea; Denies vomiting Genitourinary Genitourinary ED: Denies dysuria or hematuria Musculoskeletal Musculoskeletal: Denies back pain or neck pain Integumentary Denies abscess or rash Neurologic Neurologic: Denies headache(s) or weakness Allergic/Immunologic Allergic/Immunologic ED: Denies mouth swelling or urticaria EXAM Physical Exam Const Vital Signs: 04/29/24 17:11 04/29/24 18:12 04/29/24 18:14 Temperature 97.2 F L Temperature Source Temporal Pulse Rate 66 Respiratory Rate 18 Respiratory Effort Respiratory Depth Respiratory Pattern Blood Pressure 122/86 H Blood Pressure Mean 98 Pulse Ox 98 Oxygen Delivery Method Room Air Room Air Room Air 04/29/24 18:14 04/29/24 19:01 04/29/24 19:11 Temperature Temperature Source Pulse Rate 64 64 Respiratory Rate 18 16 Respiratory Effort Normal Non-Labored Respiratory Depth Normal Respiratory Pattern Normal Normal Blood Pressure 101/69 Blood Pressure Mean 79 Pulse Ox 99 Oxygen Delivery Method Room Air Room Air Positive well nourished and well developed General Appearance ED: well developed and NAD HEENT Reports moist mucous membranes Neck supple and no JVD Resp normal respiratory effort Auscultation: wheezes expiratory wheezes and throughout Cardio regular rate and regular rhythm GI non-tender and non-distended Palpation: soft Neuro oriented x3, CN's II-XII intact bilaterally and no sensory deficits noted [place] Coma Scale: document GCS findings Spontaneous Obeys Commands Oriented 15 Sensorium / Orientation: alert Speech: speech normal Motor Exam: strength 5/5 throughout Psych mental status grossly normal MDM MDM MDM Narrative Medical decision making narrative: Differential diagnosis includes musculoskeletal pain, pneumothorax, pulmonary embolism, pneumonia, cardiac dysrhythmia, cardiac ischemia, and electrolyte abnormality. EKG will be obtained to assess for cardiac dysrhythmia and cardiac ischemia. Chest x-ray will be obtained to assess for pneumonia and pneumothorax. CBC will be obtained to assess for leukocytosis and anemia. Basic metabolic profile will be obtained to assess for electrolyte abnormality and renal function. PT with INR will be obtained to assess for coagulopathy. High-sensitivity troponin will be obtained to assess for cardiac ischemia. D-dimer will be obtained to assess for pulmonary embolism. Lab Data Attestation: I reviewed the patient's lab results. Lab results narrative: CBC was reviewed. There is a mild leukocytosis of 11.2. Hemoglobin was slightly elevated at 15.1. The remainder is within normal limits. PT with INR was reviewed and was within normal limits. Basic metabolic profile was reviewed and was within normal limits. High-sensitivity troponin was reviewed and was less than 3. D-dimer was reviewed and was less than 0.27. Labs: Laboratory Results - last 24 hr 04/29/24 04/29/24 17:20 19:08 WBC 11.2 H RBC 4.59 Hgb 15.1 H Hct 45.3 MCV 98.7 MCH 32.9 H MCHC 33.3 RDW Std Deviation 46.9 H RDW Coeff of Brigitte 12.9 Plt Count 297 MPV 8.7 Immature Gran % (Auto) 0.300 Neut % (Auto) 54.7 Lymph % (Auto) 37.3 [place] % (Auto) 6.2 Eos % (Auto) 1.1 Baso % (Auto) 0.4 Absolute Neuts (auto) 6.1 Absolute Lymphs (auto) 4.17 Nucleated RBC % 0 PT 13.6 INR 1.0 D-Dimer Quant (PE/DVT) < 0.27 L Sodium 139 Potassium 3.9 Chloride 107 Carbon Dioxide 27.0 Anion Gap 5 BUN 5 L Creatinine 0.77 Estim Creat Clear Calc 92.59 Est GFR (MDRD) Af Amer 106 Est GFR (MDRD) Non-Af 88 BUN/Creatinine Ratio 6.5 L Glucose 93 Calcium 8.9 Troponin I High Sens < 3 L Radiography Chest X-Ray - ED: 1 View, Read by ED Physician, Read by Radiologist and No Acute Disease Diagnostic Testing: Clinical Impression(s) from Imaging Studies Chest X-Ray 04/29/24 17:32 IMPRESSION: There are findings consistent with COPD. There is no evidence of acute chest disease. Electronically Signed: Kyle Beltran MD at 18:07 EDT , Portable 1 view chest x-ray was obtained. On my independent interpretation, lung varghese are hyperinflated consistent with COPD. There is normal cardiac silhouette. Bony thorax is normal. There is no acute process noted. Radiologist also interpreted the x-ray and agrees. EKG Initial EKG: Attestation: I personally reviewed and interpreted this EKG as follows: Interpretation: No Acute Injury Pattern and Sinus Bradycardia (58) Comments: EKG was obtained. On my independent interpretation, it showed a sinus bradycardia with a rate of 58. MT interval, QRS interval, and QTc intervals were all normal. [place] was normal. There are no acute ST or T wave changes. Prior EKG tracings: available for review Prior: Unchanged (05/20/2022) Treatment and Re-Evaluation :: Smoking cessation was discussed. Patient was given injection of Toradol. Patient was given a DuoNeb aerosol. Patient is feeling slightly better on reevaluation. Patient was advised of her findings. Patient was instructed to continue with Tylenol and ibuprofen as needed for pain. Patient was instructed to take 10-15 deep breaths every hour while awake to prevent atelectasis and pneumonia. Patient was instructed to follow-up with her primary care physician in 5 to 7 days. Patient understood and was agreeable with the plan. All questions were answered. Discharge Plan Triage Chief Complaint: Shortness of Breath ED Provider: Onesimo Hylton Dx/Rx/DC Orders Clinical Impression: Acute chest wall pain, Tobacco use Instructions: ED Chest Pain, Noncardiac Prescriptions: No Action albuterol sulfate 2.5 MG/3 ML solution for nebulization 2.5 mg Inhalation Q4H PRN PRN (Reason: Wheezing) Qty: 25 0RF albuterol sulfate [Ventolin HFA] 90 mcg/actuation Hfa Aerosol Inhaler 2 puff INHALATION Q6H PRN (Reason: Wheezing) ondansetron HCl 8 mg Tablet 8 mg PO Q12H PRN (Reason: Vomiting) albuterol sulfate 2.5 mg /3 mL (0.083 %) solution for nebulization 2.5 mg inhalation Q4H PRN Qty: 25 2RF Rx Instructions: Use q4 hours and PRN for wheezing prednisone 20 mg tablet 60 mg PO DAILY Qty: 15 0RF Stand Alone Forms: ED Work / School Excuse Primary Care Provider: Bernard Balbuena Referrals: Bernard Balbuena MD [Primary Care Provider] - 5-7 Days Print Language: Ghanaian Disposition Disposition: Home, Self Care
--- NOTE | 2024-04-29 19:19 | EKG12_ITS ---
Test Reason : DYSRHYTHMIA Blood Pressure : / mmHG Vent. Rate : 058 BPM Atrial Rate : 058 BPM P-R Int : 144 ms QRS Dur : 092 ms QT Int : 452 ms P-R-T Axes : 027 086 055 degrees QTc Int : 443 ms Sinus bradycardia with sinus arrhythmia Otherwise normal ECG Confirmed by Cameron Castillo ([id number]), video effects editor EDINSON DOUGLASS ([id number]) on 05/01/2024 9:22:17 AM Referred By: Confirmed By:Cameron Castillo
[2024-04-29 20:01] LABS: D-Dimer Quantitative (DVT/PE) < 0.27 FEU/ug/m (0.27-0.49)
[2024-04-29 21:00] VITALS: BP 106/79; PULSE 58; RESP 19; O2SAT 95
[2024-04-29 21:21] VITALS: BP 106/79; PULSE 56; RESP 11; O2SAT 96
== END 2024-04-29 21:24 | disposition home or self-care (01) ==
PROVIDERS: Emergency Provider Emergency Medicine; PCP Family Medicine; Visit Provider Emergency Medicine
DX: R07.89 Other chest pain (principal); J44.9 Chronic obstructive pulmonary disease, unspecified; F17.210 Nicotine dependence, cigarettes, uncomplicated
CPT/HCPCS: 71045; 80048; 84484; 85025; 85379; 85610; 93005; 94640; 94760; 96374; 99282; A4216

== ENCOUNTER 2024-08-16 19:25 | Emergency (ER) | payer BC, SELFPAY ==
[2024-08-16 19:26] VITALS: BP 128/79; PULSE 77; RESP 22; TEMP 36.2; O2SAT 98; BMI 20.8
--- NOTE | 2024-08-16 19:58 | EDS_ITS ---
HPI History of Present Illness Chief Complaint: Chest Other Informant: patient Onset/Context/Timing Onset: Yesterday Context: Sudden Onset Timing: Continuous Quality: Stabbing Location: Right chest Worsened by: Movement Relieved by: Hot bath Narrative Narrative: Patient presents with right-sided chest pain that began yesterday. Patient states it began when she woke up. Patient states it came on suddenly. Patient states it has been constant. Patient states she has stabbing pain in the right side of her chest. Patient states it is worse with movement. Patient states she took a hot bath which seemed to help for a little bit. Patient denies any trauma or injury. Patient denies any fevers or chills. Patient denies any shortness of breath. Patient does admit to a cough. Patient denies any sputum production. [facility] Medical History Marijuana smoker Cyclic vomiting syndrome Cannabis hyperemesis syndrome concurrent with and due to cannabis abuse Substance abuse Smoker COPD (chronic obstructive pulmonary disease) Cyclical vomiting Home Medications ?Medication ?Instructions ?Recorded ?Last Taken ?Type albuterol sulfate 2.5 mg/3 mL 2.5 mg (3 mL) Inhalation Q4H PRN 07/30/08/29/21 Rx (0.083 %) solution for nebulization PRN Wheezing #25 vials albuterol sulfate 2.5 mg/3 mL 2.5 mg (3 mL) inhalation Q4H PRN 05/20/22 Unknown Rx (0.083 %) solution for nebulization #25 vials ondansetron 4 mg disintegrating 4 mg PO Q6H PRN PRN nausea/vomiting 04/29/24 U nknown History tablet Allergy/AdvReac Type Severity Reaction Status Date / Time No Known Allergies Allergy Verified 08/16/24 19:26 Surgical History History of salpingectomy History of tonsillectomy and adenoidectomy History of cholecystectomy Social History Smoking Status: Current every day smoker tobacco type: cigarettes alcohol intake: current alcohol intake frequency: holidays/special occasions only substance use type: marijuana ROS ROS ED Constitutional Constitutional ED: Denies chills or fever(s) Eyes Eyes: Denies blurry vision or change in vision ENT ENT ED: Denies rhinorrhea or sore throat Cardiovascular Cardiovascular: Reports chest pain; Denies palpitations Respiratory/Chest Respiratory/Chest: Reports cough; Denies dyspnea Gastrointestinal Gastrointestinal: Denies nausea or vomiting Genitourinary Genitourinary ED: Denies dysuria or hematuria Musculoskeletal Musculoskeletal: Denies back pain or neck pain Integumentary Denies abscess or rash Neurologic Neurologic: Denies headache(s) or weakness Allergic/Immunologic Allergic/Immunologic ED: Denies mouth swelling or urticaria EXAM Physical Exam Const Vital Signs: 08/16/24 19:26 08/16/24 19:31 Temperature 97.2 F L Temperature Source Temporal Pulse Rate 77 Respiratory Rate 22 H Respiratory Effort Normal Non-Labored Respiratory Pattern Normal Blood Pressure 128/79 H Blood Pressure Mean 95 Pulse Ox 98 Oxygen Delivery Method Room Air Positive well nourished and well developed General Appearance ED: well developed and NAD HEENT Reports moist mucous membranes Neck supple and no JVD Resp normal respiratory effort and clear to auscultation bilaterally GI non-tender and non-distended Palpation: soft Neuro oriented x3, CN's II-XII intact bilaterally and no sensory deficits noted Sensorium / Orientation: alert Motor Exam: strength 5/5 throughout Psych mental status grossly normal MDM MDM MDM Narrative Medical decision making narrative: Differential diagnosis includes pneumothorax, pneumonia, bronchitis, pleurisy, and musculoskeletal pain. Chest x-ray will be obtained to assess for pneumonia and pneumothorax. Radiography Chest X-Ray - ED: 2 View, Read by ED Physician, Read by Radiologist and Normal Diagnostic Testing: Clinical Impression(s) from Imaging Studies Chest X-Ray 08/16/24 20:08 IMPRESSION: No radiographic evidence of acute cardiopulmonary disease. Electronically Signed: Manuelito Godoy MD at 21:09 EST , PA and lateral chest x-ray was obtained. There are 2 views. On my independent interpretation, lung varghese are clear. There is normal cardiac silhouette. Bony thorax is normal. There is no acute process noted. Radiologist also interpreted the x-ray and agrees. Treatment and Re-Evaluation :: Patient was given a dose of [place] here. Patient was feeling better on reevaluation. Patient was advised of her findings. Patient was instructed to take 10-15 deep breaths every hour while awake to prevent atelectasis and pneumonia. Patient was instructed to use ice to her chest. Patient was instructed to take Tylenol or ibuprofen as needed for pain. Patient was instructed to follow-up with her primary care physician in 5 to 7 days. Patient understood and was agreeable with the plan. All questions were answered. Discharge Plan Triage Chief Complaint: Chest Other ED Provider: Onesimo Hylton Dx/Rx/DC Orders Clinical Impression: Right-sided chest pain, Tobacco use Instructions: ED Chest Pain, Uncertain Cause Prescriptions: No Action albuterol sulfate 2.5 MG/3 ML solution for nebulization 2.5 mg Inhalation Q4H PRN PRN (Reason: Wheezing) Qty: 25 0RF albuterol sulfate 2.5 mg /3 mL (0.083 %) solution for nebulization 2.5 mg inhalation Q4H PRN Qty: 25 2RF Rx Instructions: Use q4 hours and PRN for wheezing ondansetron 4 mg tablet,disintegrating 4 mg PO Q6H PRN PRN (Reason: nausea/vomiting) Primary Care Provider: Bernard Balbuena Referrals: Bernard Balbuena MD [Primary Care Provider] - 5-7 Days Activity Restrictions/Additional Instructions: Take [id number] ibuprofen as needed for any pain. Take 10-15 deep breaths every hour while you are awake to prevent atelectasis and pneumonia. Print Language: Latvian Disposition Disposition: Home, Self Care
--- NOTE | 2024-08-16 20:08 | RAD_ITS ---
EXAM: XR CHEST, 2 VIEWS CLINICAL INDICATION: Chest pain TECHNIQUE: Frontal and lateral views of the chest. COMPARISON: 04.29.24 FINDINGS: LUNGS AND PLEURAL SPACES: Unremarkable. No consolidation or edema. No pneumothorax. No effusion. HEART: Unremarkable. Cardiac silhouette not enlarged. MEDIASTINUM: Central airways and mediastinal contour are unremarkable. BONES/JOINTS: Unremarkable. No acute fracture. SOFT TISSUES: Unremarkable. RAD/Chest PA and Lateral IMPRESSION: No radiographic evidence of acute cardiopulmonary disease. Electronically Signed: Manuelito Godoy MD at 21:09 EST ,
[2024-08-16] MEDS: HYDROcodone Bitartrate/Apap 5/325 Tablet PO (20:18)
[2024-08-16 21:25] VITALS: BP 91/65; PULSE 61; RESP 16; O2SAT 100
[2024-08-16 21:41] VITALS: BP 90/65; PULSE 61; RESP 16; TEMP 36.8; O2SAT 100
== END 2024-08-16 21:47 | disposition home or self-care (01) ==
PROVIDERS: Emergency Provider Emergency Medicine; PCP Family Medicine; Visit Provider Emergency Medicine
DX: R07.9 Chest pain, unspecified (principal); J44.9 Chronic obstructive pulmonary disease, unspecified; Z79.899 Other long term (current) drug therapy; F17.210 Nicotine dependence, cigarettes, uncomplicated
CPT/HCPCS: 71046; 99282

== ENCOUNTER 2025-07-12 03:36 | Emergency (ER) | payer BC, SELFPAY ==
[2025-07-12 03:36] VITALS: TEMP 36.3; BMI 21.9
[2025-07-12] MEDS: Orphenadrine 100 MG Tablet PO (04:01)
[2025-07-12] MEDS: Ketorolac 30 MG/ML Syringe IV (04:01)
[2025-07-12 04:12] LABS: Mucous, Urine 0 SEEN /hpf (<or=2+); Red Blood Cells-Urine 0 SEEN /hpf (0-5)
[2025-07-12 04:14] LABS: Hematocrit 41.0 % (37-47); Hemoglobin 14.0 g/dL (12.0-15.0); Immature Granulocytes Count 0.030 X10^3/uL (0.0-0.0); Mean Corp Hgb Conc 34.1 g/dL (32-36); Mean Corpuscular Volume 97.9 fL (81-99); Mean Platelet Vol. 9.5 fl (6.2-12.0); NRBC Flagged by Analyzer 0.2 % (0-5); Platelet Count 268 K/mm3 (150-450); RBC Distribution Width CV 12.8 % (11.6-14.6); RBC Distribution Width SD 46.3 fl (35.1-43.9); Red Blood Count 4.19 M/mm3 (4.2-5.4); White Blood Count 11.1 K/mm3 (4.4-11.0)
[2025-07-12 04:18] LABS: Internal QC Validated? YES +Cl - CLEAR BKGD; Pregnancy, Serum, hCG Quali. NEGATIVE Negative
[2025-07-12 04:20] LABS: Color, Urine Straw (Yellow); Glucose, Dipstick Normal (Normal); Ketone-Dipstick Negative (Negative); Leukocyte Esterase-Dipstick 100 /ul (Negative); Nitrite-Dipstick Negative (Negative); Occult Blood-Urine 10 /ul (Negative); Protein-Dipstick 15 mg/dl (Negative); Specific Gravity, Urine 1.010 (1.002-1.030); Urine Bilirubin Dipstick Negative (Negative)
[2025-07-12 04:32] LABS: Squamous Epithelial Cells - UA 10-25 SEEN /hpf (5-10); Transitional Epithelial - Ur 0-5 SEEN /hpf (0-5)
[2025-07-12 04:39] LABS: Anion Gap 7 (5-15); BUN 10 mg/dL (4-19); BUN/Creat Ratio 13.9 RATIO (10-20); Calcium,Total 9.0 mg/dL (7.6-11.0); Carbon Dioxide 27.9 mmol/L (21.0-32.0); Chloride 100 mmol/L (98-108); Estimated Creatinine Clearance 105.61 ml/min (50-250); Glucose 89 mg/dL (70-99); Potassium 4.0 mmol/L (3.3-5.1)
--- NOTE | 2025-07-12 04:50 | EDS_ITS ---
HPI History of Present Illness Chief Complaint: Abd Pain Informant: patient Narrative Narrative: Patient is a 40-year-old female with history of smoking and asthma/COPD as well as bouts of cannabis hyperemesis syndrome and hypokalemia. She states that earlier today she was sitting and playing with her granddaughter. She states she leaned and turned and then felt pain in the left groin/low back region. She states that she did not think much of this and was able to still walk and perform her ADLs without difficulty. 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 States the pain is located mainly in the left inguinal/groin region. She denies any radiation in the leg. She denies any numbness tingling or weakness. She states there is no history of loss of bowel or bladder control or IV drug use. She also reports no dysuria or hematuria. However as symptoms are making it difficult for her to perform her job she presents for evaluation. [facility] Medical History Marijuana smoker Cyclic vomiting syndrome Cannabis hyperemesis syndrome concurrent with and due to cannabis abuse Substance abuse Smoker COPD (chronic obstructive pulmonary disease) Cyclical vomiting Home Medications ?Medication ?Instructions ?Recorded ?Last Taken ?Type albuterol sulfate 2.5 mg/3 mL 2.5 mg (3 mL) Inhalation Q4H PRN 07/30/18 08/29/21 Rx (0.083 %) solution for nebulization PRN Wheezing #25 v ials albuterol sulfate 2.5 mg/3 mL 2.5 mg (3 mL) inhalation Q4H PRN 05/20/22 Unknown Rx (0.083 %) solution for nebulization #25 vials ondansetron 4 mg disintegrating 4 mg PO Q6H PRN PRN na usea/vomiting 04/29/24 Unknown History tablet methocarbamol 500 mg tablet 1,000 mg (2 x 500 mg) PO 4 X/DAY 07/12/25 Unknown Rx PRN Muscle pain/spasm #56 tabs oxycodone-acetaminophen 5 mg-325 1 tab PO Q6H PRN pain 3 days #12 07/12/25 Unknown Rx mg tablet (Percocet) tabs Allergy/AdvReac Type Severity Reaction Status Date / Time No Known Allergies Allergy Verified 07/12/25 03:37 Surgical History History of salpingectomy History of tonsillectomy and adenoidectomy History of cholecystectomy Social History Smoking Status: Current every day smoker tobacco type: cigarettes alcohol intake: current alcohol intake frequency: holidays/special occasions only substance use type: marijuana ROS ROS ED Constitutional Constitutional ED: Denies chills or fever(s) Eyes Eyes: Denies change in vision ENT ENT ED: Denies sore throat Cardiovascular Cardiovascular: Denies chest pain Respiratory/Chest Respiratory/Chest: Denies cough or dyspnea Gastrointestinal Gastrointestinal: Denies abdominal pain, diarrhea, nausea or vomiting Genitourinary Genitourinary ED: Denies dysuria or hematuria Musculoskeletal Musculoskeletal: Reports back pain and other Details: Positive left hip pain Integumentary Denies Abrasions or rash Neurologic Neurologic: Denies headache(s), paresthesias or weakness Hematologic/Lymphatic Hematologic/Lymphatic: Denies easy bleeding or easy bruising EXAM Physical Exam Const Vital Signs: 07/12/25 03:36 07/12/25 05:04 Temperature 97.4 F L 98.0 F Temperature Source Oral Pulse Rate 74 Respiratory Rate 18 Blood Pressure 132/60 H Blood Pressure Mean 84 Pulse Ox 96 Positive well nourished and well developed General Appearance ED: well developed; Negative for pallor HEENT HEENT Narrative: Normocephalic atraumatic Eyes PERRL and EOMs intact bilaterally General Eye ED: Negative for scleral icterus Neck supple Resp normal respiratory effort and clear to auscultation bilaterally Cardio regular rate and regular rhythm Rate: other Other Details: Heart is regular rate and rhythm without murmurs rubs or gallops Radial and carotid pulses are equal and symmetric GI normal to inspection, nondistended, normoactive bowel sounds, non-tender and non-distended GI Narrative: Soft nontender nondistended with normal active bowel sounds No voluntary guarding or rigidity or pulsatile mass No peritoneal signs Auscultation: normoactive bowel sounds Palpation: soft Back/Spine no CVA tenderness Back/Spine Narrative: No bony deformity or step-off of the thoracic or lumbar spine No midline tenderness to palpation No saddle anesthesia. Negative straight leg raise. No clonus or Babinski. Patellar reflexes are plus 2 out of 4 bilaterally No overlying soft tissue changes to suggest trauma or infection Extremity Extremity Narrative: Pelvis is stable there is no shortening or external rotation of either lower extremity Bilateral lower extremities are neurovascularly intact No signs of long bone injury such as bony deformity or joint effusion All compartments are soft and compressible going against compartment syndrome Patient has reproducible pain with palpation in the left inguinal region. This worsens with internal and external rotation as well as abduction. There is no overlying soft tissue skin changes to suggest cellulitis or abscess and there is no palpable lymph nodes to suggest lymphadenopathy/lymphadenitis. Neuro oriented x3, CN's II-XII intact bilaterally and no sensory deficits noted Sensorium / Orientation: alert Motor Exam: strength 5/5 throughout Psych mental status grossly normal Skin no rashes or lesions noted and no wounds General Skin Exam: Negative for jaundice or pallor MDM MDM MDM Narrative Medical decision making narrative: Patient arrived to the ER with stable vitals. She reported pain in the left low back/left inguinal region after playing with her granddaughter. She denied any hematuria or dysuria to suggest kidney stone or pyelonephritis or UTI. She denied any loss of bowel or bladder control to go against cauda equina and she denied any drug use going against epidural abscess. There is no soft tissue skin changes in the inguinal region to suggest cellulitis or abscess. There is no palpable lymph nodes to suggest lymphadenopathy or lymphadenitis. As the pain is reproducible with motion I feel this is most likely a hip abductor strain. Blood work revealed no signs of acute kidney injury or electrolyte abnormality. Urine sample showed no blood going against kidney stone. There was +1 bacteria but no white blood cells are present and there are moderate amount of skin cells indicating contamination and therefore do not feel this is an infectious process. Patient did report feeling better after Toradol and Norflex which would further indicate this is musculoskeletal in nature. Therefore with negative workup stable vitals and improvement of symptoms I do not feel there is need for further intervention and she is otherwise safe for discharge with symptomatic care History & Record Review Discussion w/independent historian: Patient Lab Data Attestation: I reviewed the patient's lab results. Labs: Laboratory Results - last 24 hr 07/12/25 03:58 WBC 11.1 H RBC 4.19 L Hgb 14.0 Hct 41.0 MCV 97.9 MCH 33.4 H MCHC 34.1 RDW Std Deviation 46.3 H RDW Coeff of Brigitte 12.8 Plt Count 268 MPV 9.5 Immature Gran % (Auto) 0.300 Neut % (Auto) 50.8 Lymph % (Auto) 41.8 H [place] % (Auto) 5.8 Eos % (Auto) 0.8 Baso % (Auto) 0.5 Absolute Neuts (auto) 5.6 Absolute Lymphs (auto) 4.64 H Nucleated RBC % 0.2 Sodium 135 Potassium 4.0 Chloride 100 Carbon Dioxide 27.9 Anion Gap 7 BUN 10 Creatinine 0.70 Estim Creat Clear Calc 105.61 Est GFR (MDRD) Non-Af 111 BUN/Creatinine Ratio 13.9 Glucose 89 Calcium 9.0 Serum , Qual NEGATIVE Urine Color Straw Urine Clarity Cloudy Urine pH 6.0 Ur Specific [place] 1.010 Urine Protein 15 H Urine Glucose (UA) Normal Urine Ketones Negative Urine Occult Blood 10 H Urine Nitrite Negative Urine Bilirubin Negative Urine Urobilinogen Normal Ur Leukocyte Esterase 100 H Urine RBC 0 SEEN Urine WBC 0-5 SEEN Ur Squamous Epith Cells 10-25 SEEN Ur Transition Epith Cell 0-5 SEEN Amorphous Sediment 1+ Urine Bacteria 1+ Urine Mucus 0 SEEN Discharge Plan Triage Chief Complaint: Abd Pain ED Provider: Oscar Barrientos Dx/Rx/DC Orders Clinical Impression: Strain of adductor muscle of left thigh, Cannabis abuse, episodic use Instructions: ED Groin Strain (Adult) Prescriptions: New oxycodone-acetaminophen [Percocet] 5-325 mg tablet 1 tab PO Q6H PRN (Reason: pain) 3 Days Qty: 12 0RF methocarbamol 500 mg tablet 1,000 mg PO 4X/DAY PRN (Reason: Muscle pain/spasm) Qty: 56 0RF No Action albuterol sulfate 2.5 MG/3 ML solution for nebulization 2.5 mg Inhalation Q4H PRN PRN (Reason: Wheezing) Qty: 25 0RF albuterol sulfate 2.5 mg /3 mL (0.083 %) solution for nebulization 2.5 mg inhalation Q4H PRN Qty: 25 2RF Rx Instructions: Use q4 hours and PRN for wheezing ondansetron 4 mg tablet,disintegrating 4 mg PO Q6H PRN PRN (Reason: nausea/vomiting) Primary Care Provider: Bernard Balbuena Referrals: Bernard Balbuena MD [Primary Care Provider, Family Practice] Activity Restrictions/Additional Instructions: Your workup and exam would indicate your pain is related to a strain of the muscles in the left hip/groin. Stretch and heat the area to help reduce pain and speed healing and take the prescribed medications as well to help control symptoms. Symptoms should improve anywhere from the next 5 to 14 days. If symptoms are persisting or worsening or you have any further concerns return to the ER for repeat evaluation Print Language: Hungarian Disposition Disposition: Home, Self Care Discharge Date/Time: 07/12/25 05:04
[2025-07-12 05:04] VITALS: BP 132/60; PULSE 74; RESP 18; TEMP 36.7; O2SAT 96
== END 2025-07-12 05:04 | disposition home or self-care (01) ==
PROVIDERS: Emergency Provider Emergency Medicine; PCP Family Medicine; Visit Provider Emergency Medicine
DX: S76.212A Strain of adductor muscle, fascia and tendon of left thigh, initial encounter (principal); J44.9 Chronic obstructive pulmonary disease, unspecified; E87.6 Hypokalemia; F12.10 Cannabis abuse, uncomplicated; R11.16 Cannabis hyperemesis syndrome; F17.210 Nicotine dependence, cigarettes, uncomplicated; X58.XXXA Exposure to other specified factors, initial encounter
CPT/HCPCS: 80048; 81001; 84703; 85025; 96374; 99283; A4216